=== PATIENT | male | born 1960 ===

== ENCOUNTER 2016-09-11 14:31 | Observation (INO) | payer MEDICARE, OTHER ==
[2016-09-11 14:35] VITALS: BMI 34.7
[2016-09-11] MEDS ORDERED: Sodium Chloride 0.9% 500 ML IV ONE ×2 (14:41→15:36)
--- NOTE | 2016-09-11 14:45 | ED PDOC ---
Arrival/HPI - General Chief Complaint: Shortness Of Breath Time Seen by Provider: 09/11/16 14:34 Historian: Patient - Critical Care Critical Care Minutes: 30 minutes - History of Present Illness Time/Duration: Other (2 weeks) Symptom Onset: Gradual Symptom Course: Unchanged Severity Level: Mild Activities at Onset: Rest Associated Symptoms (Text): 09/11/16 14:42 Patient complains of a 2 week history of chest pain and shortness of breath. He also has nausea vomiting and diarrhea. There is no abdominal pain. He was sent to the emergency department from the wound center today. He had a left short leg cast placed today in the wound center. No fever or chills. No injury or trauma. No genitourinary symptoms. Past Medical History - Infectious Disease Hx of Infectious Diseases: None - Tetanus Immunization Tetanus Immunization: Unknown - Cardiac Hx Hypertension: Yes - Pulmonary Hx Respiratory Disorders: No - Neurological Hx Neurological Disorder: Yes - HEENT Hx HEENT Disorder: Yes - Renal Hx Renal Disorder: No - Endocrine/Metabolic Hx Diabetes Mellitus Type 2: Yes - Hematological/Oncological Hx Blood Disorders: No - Integumentary Other/Comment: PVD - Musculoskeletal/Rheumatological Hx Falls: No - Gastrointestinal Hx Gastrointestinal Disorders: No - Genitourinary/Gynecological Hx Genitourinary Disorders: No - Psychiatric Hx Schizophrenia: Yes Hx Substance Use: No - Surgical History Other/Comment: left foot great toe amputation - Anesthesia Hx Anesthesia: No Hx Anesthesia Reactions: No - Suicidal Assessment Feels Threatened In Home Enviroment: No Family/Social History - Physician Review Nursing Documentation Reviewed: Yes Family/Social History: Unknown Family HX Smoking Status: Never Smoked Hx Alcohol Use: No Hx Substance Use: No Allergies/Home Meds Allergies/Adverse Reactions: Allergies No Known Allergies Allergy (Verified 05/15/16 14:26) Home Medications: Home Meds Medication Instructions Recorded Confirmed Amlodipine Besylate 10 mg PO DAILY 02/23/15 09/11/16 glyBURIDE [Micronase] 5 mg PO BID 02/23/15 09/11/16 Hydrochlorothiazide [Microzide] 25 mg PO DAILY 09/11/16 09/11/16 Lisinopril [Zestril] 80 mg PO DAILY 09/11/16 09/11/16 MetFORMIN [glucoPHAGE] 1,000 mg PO BID 04/25/17 04/25/17 Simvastatin [Zocor] 20 mg PO DAILY 09/11/16 09/11/16 Review of Systems - Physician Review All systems were reviewed & negative as marked: Yes - Review of Systems Constitutional: Fatigue. absent: Fevers Respiratory: SOB. absent: Cough, Sputum, Wheezing Cardiovascular: Chest Pain. absent: Palpitations, Syncope Gastrointestinal: Diarrhea, Nausea, Vomiting. absent: Abdominal Pain, Constipation Genitourinary Male: absent: Dysuria, Frequency, Hematuria Neurological: absent: Headache, Dizziness Physical Exam Vital Signs Temp Pulse Resp BP Pulse Ox 09/11/16 14:40 20 100 09/11/16 14:32 98.5 F 84 18 132/70 100 Temperature: Afebrile Blood Pressure: Normal Pulse: Regular Respiratory Rate: Normal Appearance: Positive for: Well-Appearing, Non-Toxic, Comfortable Pain Distress: None Mental Status: Positive for: Alert and Oriented X 3 - Systems Exam Head: Present: Atraumatic, Normocephalic Pupils: Present: PERRL Extroacular Muscles: Present: EOMI Conjunctiva: Present: Normal Mouth: Present: Moist Mucous Membranes Pharnyx: No: ERYTHEMA, EXUDATE, TONSILS ENLARGED Neck: Present: Normal Range of Motion Respiratory/Chest: Present: Clear to Auscultation, Good Air Exchange, Decreased Breath Sounds. No: Respiratory Distress, Accessory Muscle Use Cardiovascular: Present: Regular Rate and Rhythm, Normal S1, S2. No: Murmurs Abdomen: Present: Normal Bowel Sounds. No: Tenderness, Distention, Peritoneal Signs, Rebound, Guarding Back: Present: Normal Inspection. No: CVA Tenderness, Midline Tenderness, Paraspinal Tenderness Upper Extremity: Present: Normal Inspection. No: Cyanosis, Edema Lower Extremity: Present: Other (Left lower extremity short leg cast) Neurological: Present: GCS=15, CN II-XII Intact, Speech Normal, Motor Func Grossly Intact Skin: Present: Warm, Dry, Normal Color. No: Rashes Psychiatric: Present: Alert, Oriented x 3, Normal Insight, Normal Concentration Medical Decision Making ED Course and Treatment: 09/11/16 14:44 EKG shows normal sinus rhythm rate approximately 80 with a primary AV block and a right bundle branch block similar to EKG of 05/15/2016 - Lab Interpretations Lab Results: 09/11/16 14:40 09/11/16 14:40 Lab Results 09/11/16 15:00: pO2 30, VBG pH 7.12 L*, VBG pCO2 51.0, VBG HCO3 16.6 L, VBG Total CO2 18.2 L, VBG O2 Sat (Calc) 58.0, VBG Base Excess -12.8 L, VBG Potassium 6.0 H, Glucose 79, Lactate 1.0, FiO2 21.0, Sodium 135.0, Chloride 115.0 H, Venous Blood Potassium 6.0 H 09/11/16 14:40: Sodium 138, Potassium 5.9 H*, Chloride 109 H, Carbon Dioxide 16 L, Anion Gap 19, BUN 73 H, Creatinine 3.0 H, Est GFR ( Amer) 26, Est GFR (Non-Af Amer) 22, Random Glucose 79, Calcium 10.1, Total Bilirubin 1.1, AST 25, ALT 33, Alkaline Phosphatase 68, Lactate Dehydrogenase 340, Total Creatine Kinase 105, Troponin I 0.02 D, NT-Pro-B Natriuret Pep 78.1, Total Protein 8.8 H , Albumin 4.8, Globulin 3.9, Albumin/Globulin Ratio 1.2, Lipase 569 H 09/11/16 14:40: PT 10.3, INR 0.95, APTT 25.4, D-Dimer, Quantitative 0.25 09/11/16 14:40: WBC 8.7, RBC 4.35, Hgb 12.1 L, Hct 36.4 L, MCV 83.7, MCH 27.8, MCHC 33.2, RDW 16.0 H, Plt Count 169, MPV 11.6 H, Gran % 79.1 H, Lymph % (Auto) 13.7 L, Gibson % (Auto) 6.1 H, Eos % (Auto) 1.0 L, Baso % (Auto) 0.1, Gran # 6.87 H, Lymph # 1.2, Gibson # 0.5, Eos # 0.1, Baso # 0.01 - RAD Interpretation Radiology Orders: 09/11/16 14:41 CHEST PORTABLE [RAD] Stat Chest 1 view shows no infiltrate effusion or cardiomegaly Wheel Borer: ED Physician - Medication Orders Current Medication Orders: Sodium Chloride (Sodium Chloride 0.9%) 500 mls @ 500 mls/hr IV ONCE ONE Stop: 04/25/17 16:35 Discontinued Medications Dextrose (Dextrose 50% Inj) 50 ml IVP STAT STA Stop: 09/11/16 15:37 Sodium Chloride (Sodium Chloride 0.9%) 500 mls @ 500 mls/hr IV ONCE ONE Stop: 09/11/16 15:40 Last Admin: 09/11/16 15:05 Dose: 500 mls/hr Insulin Human Regular (Humulin R) 10 units IV ONCE STA Stop: 09/11/16 15:36 Ondansetron HCl (Zofran Inj) 4 mg IVP ONCE ONE Stop: 09/11/16 14:42 Last Admin: 09/11/16 15:05 Dose: 4 mg Pantoprazole Sodium (Protonix Inj) 40 mg IVP ONCE STA Stop: 09/11/16 14:42 Last Admin: 09/11/16 15:05 Dose: 40 mg Sodium Polystyrene Sulfonate (Kayexalate Oral Susp) 30 gm PO STAT STA Stop: 09/11/16 15:38 Disposition/Present on Arrival - Present on Arrival Any Indicators Present on Arrival: No History of DVT/PE: No History of Uncontrolled Diabetes: Yes Urinary Catheter: No History of Decub. Ulcer: No History Surgical Site Infection Following: None - Disposition Have Diagnosis and Disposition been Completed?: Yes Diagnosis: Hyperkalemia, Acute renal insufficiency, Chest pain, Dyspnea, Nausea vomiting and diarrhea Disposition: HOSPITALIZED Disposition Time: 15:40 Patient Plan: Admission, Telemetry Patient Problems: Current Active Problems Problem Status Onset Acute renal insufficiency Acute Chest pain Acute Dyspnea Acute Hyperkalemia Acute Nausea vomiting and diarrhea Acute Condition: SERIOUS Discharge Instructions (ExitCare): Chest Pain (ED) Referrals: Rocky Riley MD [Primary Care Provider] - Follow up with primary
[2016-09-11 14:53] LABS: ADD MANUAL DIFF? NO
[2016-09-11 14:55] LABS: BASO # 0.01 K/mm3 (0.0-2.0); BASO % 0.1 % (0.0-3.0); EOS # 0.1 (0.0-0.7); GRAN # 6.87 (1.4-6.5); GRAN % 79.1 % (50.0-68.0); HEMATOCRIT 36.4 % (42.0-52.0); LYMPH # 1.2 (1.2-3.4); LYMPH % 13.7 % (22.0-35.0); MEAN CELL VOLUME 83.7 fL (80.0-105.0); MEAN CORPUSCULAR HEMOGLOBIN 27.8 pg (25.0-35.0); MEAN CORPUSCULAR HGB CONC 33.2 g/dl (31.0-37.0); MEAN PLATELET VOLUME 11.6 fl (7.0-11.0); MONO # 0.5 (0.1-0.6); MONO % 6.1 % (1.0-6.0); PLATELET COUNT 169 10^3/uL (120.0-450.0); WHITE BLOOD COUNT 8.7 10^3/ul (4.5-11.0)
[2016-09-11 15:17] LABS: ALB/GLOB RATIO 1.2 (1.1-1.8); BILIRUBIN,TOTAL 1.1 mg/dL (0.2-1.3); CALCIUM 10.1 mg/dL (8.4-10.5); TOTAL PROTEIN 8.8 g/dL (5.8-8.3)
[2016-09-11 15:18] LABS: TROPONIN I 0.02 ng/mL
[2016-09-11 15:24] LABS: POTASSIUM 5.9 mmol/L (3.6-5.0)
[2016-09-11 15:30] LABS: VENOUS BLOOD GAS BASE EXCESS -12.8 mmol/L (0.0-2.0)
[2016-09-11 15:31] LABS: D DIMER 0.25 mg/L FEU (0-0.50); INR 0.95 (0.93-1.08); PARTIAL THROMBOPLASTIN TIME 25.4 Seconds (23.7-30.8)
[2016-09-11 15:33] LABS: VENOUS BLOOD PH 7.12 (7.32-7.43)
[2016-09-11] MEDS ORDERED: Insulin Regular 1 UNITS/0.01 ML ML IV STA (15:35)
[2016-09-11] MEDS ORDERED: Dextrose 50% SYRINGE Inj (50 ml) IVP STA (15:36)
[2016-09-11] MEDS ORDERED: Sod Polystyrene Sulf 15 gm/60 ml Oral Susp PO STA (15:37)
--- NOTE | 2016-09-11 15:39 | RAD ---
HISTORY: sob COMPARISON: 05/15/2016 FINDINGS: LUNGS: No active pulmonary disease. PLEURA: No significant pleural effusion identified, no pneumothorax apparent. CARDIOVASCULAR: Normal. OSSEOUS STRUCTURES: No significant abnormalities. VISUALIZED UPPER ABDOMEN: Normal. OTHER FINDINGS: None. IMPRESSION: No active disease.
[2016-09-12 06:51] VITALS: O2SAT 99
[2016-09-12] MEDS ORDERED: Insulin Reg-MEDIUM-Coverage SC SCH (07:30)
[2016-09-12 11:46] VITALS: BP 117/71; RESP 20; TEMP 97.9
--- NOTE | 2016-09-12 13:09 | CARD ---
APPROVED REPORT EKG Measurement Heart [id number] <Conclusion> Sinus rhythm with 1st degree AV block Right bundle branch bloc Abnormal ECG
[2016-09-12] MEDS ORDERED: Sod Polystyrene Sulf 15 gm/60 ml Oral Susp PO ONE (14:07)
--- NOTE | 2016-09-12 14:13 | CON ---
DATE: 09/12/2016 HISTORY OF PRESENT ILLNESS: The patient is a 56-year-old male who presented with 1 episode of chest discomfort. His symptoms are currently resolved. The patient is free of cardiac history. PAST MEDICAL HISTORY: Includes diabetes mellitus, hypertension and hypercholesterolemia, and is curr ently being treated for diabetic foot ulcer on his left lower extremity. The patient has had no previous myocardial infarction or intervention before. A stress test was done in the past which was negative. His renal status has been deteriorating over the past several years, likely due to his diabetes. SOCIAL HISTORY: Denies smoking. REVIEW OF SYSTEMS: A 14-point review of systems was reviewed. No cardiac symptomatology was elicite d. PHYSICAL EXAMINATION: VITAL SIGNS: Blood pressure 117/71, the heart rate is in the 70s. NECK: Negative JVD. LUNGS: Without rales. HEART: Revealed S1, S2. EXTREMITIES: Without edema. The left foot is bandaged with a recent dressing change. EKG shows normal sinus rhythm with a right bundle branch block. LABORATORIES: Reveal troponins that are negative x 2. BUN and creatinine are 19 and 3.0. The hemog lobin is 12.1. IMPRESSION: 1. Transient chest discomfort. 2. No evidence for acute coronary syndrome. 3. Diabetes mellitus. 4. Hypertension. 5. Hypercholesterolemia. 6. Diabetic foot ulcer. Given these findings, I have discussed this with the patient in detail. I have asked him to take a d aily aspirin. He is to continue his statin therapy as well as his amlodipine. The patient is scheduled for a stress test early next week. Rigoberto Krishnan MD cc: [id number] TT: 09/12/2016 14:12:30 Confirmation # [id number] Dictation # [id number] mn
--- NOTE | 2016-09-12 15:30 | CON ---
DATE: 09/12/2016 REFERRING PHYSICIAN: Dr. Rocky Riley REASON FOR CONSULT: May have a sleep apnea syndrome. HISTORY OF PRESENT ILLNESS: This is a 56-year-old gentleman with a past medical history significant for diabetes, hypertension, hyperlipidemia, diabetic foot, which is nonhealing. Has a hard cast on t he left lower extremity. Seen at [facility]. Was complaining about nonspecific chest pain. Came to Emergency Room and admitted for further workup. In the past, he was requested to have a slee p study done, apparently did not comply and had had no followup. Admits to have snoring, daytime sle epy and tired. No chest pain at present time. No nausea, no vomiting. Has a hard cast on the left lower extremity. PAST MEDICAL HISTORY: May have a sleep apnea syndrome, diabetes, hypertension, hyperlipidemia, nonhe aling diabetic foot. SOCIAL HISTORY: Lives with mother. No history of smoking or alcohol use. FAMILY HISTORY: No significant cardiopulmonary disease reported. MEDICATIONS: He is on insulin coverage, hydrochlorothiazide 25 mg daily, Lipitor 10 mg daily, ____ 5 mg twice a day, Norvasc 10 mg daily. ALLERGIES: None known. REVIEW OF SYSTEMS: No headache, no rhinitis. Admits to have snoring, daytime sleepy and tired, epig astric discomfort. No chest pain at present. No dysuria. Has a left leg hard cast. PHYSICAL EXAMINATION: GENERAL: Lying in the bed in no acute distress. VITAL SIGNS: Temp is 98, heart rate 72, respiratory rate is 20, blood pressure 170/71, pulse ox 99% on room air. HEENT: Moist mucous membranes. Crowded airway. Mallampati score is 4. NECK: Supple. No JVD. LUNGS: Has a fair airflow with few rhonchi. HEART: S1, S2. ABDOMEN: Soft, nontender. No organomegaly. EXTREMITIES: There is no edema of the right leg. Left leg has a hard cast. NEUROLOGIC: Awake, alert, follows simple command. LABORATORY DATA: Shows hemoglobin 12.1, hematocrit 36.4, WBC 8.7, platelet is 169. INR 0.95. D-dim er is 0.25. He has a VBG done, which shows pCO2 was 51, pH of 7.1 and pO2 is 30. Chest x-ray done i n ER shows no active pulmonary disease. IMPRESSION AND PLAN: Nonhealing left foot ulcer, diabetes, I believe schizophrenic, has a CO2 retent ion, may have a sleep apnea syndrome. In the past, has been noncompliant with the followup. Will ge t ABG to assess pCO2 and pH. Keep head elevated at 45 degrees. Sleep apnea precaution. Will get ve nous Doppler to assure there is no deep venous thrombosis. I understand D-dimer is negative. Had a CAT scan of the ____ done in 2014, which shows unremarkable for any parenchymal lung disease, so I wi ll suggest outpatient PFT and attended sleep study. Gastric prophylaxis, deep venous thrombosis prop hylaxis. Thank you and we will follow with you. Camille Salazar MD cc: [id number] TT: 09/12/2016 15:29:36 Confirmation # [id number] Dictation # [id number]
[2016-09-12 16:25] VITALS: PULSE 75
--- NOTE | 2016-09-12 23:30 | HP ---
ADDENDUM Please see the previous H and P for initial HPI. ALLERGIES: No known drug allergies. HOME MEDICATIONS: Amlodipine, glyburide, hydrochlorothiazide, lisinopril, metformin, simvastatin. PAST MEDICAL HISTORY: Diabetes type 2, dyslipidemia, foot ulcer, schizophrenia, peripheral neuropath y. SOCIAL HISTORY: He does not smoke. He lives with his family, who is involved in his care. He denie s drug use. PAST SURGICAL HISTORY: Left greater toe amputation. PHYSICAL EXAMINATION: VITAL SIGNS: He has a temperature of 97.9, pulse is 72, blood pressure 117/71, respirations 20. Hei ght is 5 feet 7 inches, weight is 216 pounds, BMI is 33. GENERAL: Patient lying in bed, flat, and in no apparent distress. HEAD AND NECK EXAM: Atraumatic, normocephalic. Conjunctivae are pink. Throat clear and mouth with moist mucosa. Oropharynx benign. EYES: Extraocular movements are intact. PERRLA. NECK: Supple. No JVD, thyromegaly, or adenopathy. No bruits. HEART: S1 and S2 regular rate and rhythm. No murmurs, rubs, or gallops. LUNGS: Clear to auscultation bilaterally. No wheezing rales or rhonchi appreciated. No retraction s on exam. ABDOMEN: Soft, nontender, nondistended. Bowel sounds are positive in all quadrants. No rebound. No hepatosplenomegaly. EXTREMITIES: No cyanosis, clubbing, or edema. NEURO: No facial asymmetry, tongue is midline, no uvula deviation. Power is 5/5 in upper extremity and 5/5 in lower extremity. Sensation is normal in upper extremity and lower extremity. PSYCH: Awake, alert, oriented x3. No anxiety or depression symptoms. Good insight. Normal affec t. : No CVA tenderness VASCULAR: 2+ pulses in carotid and pedal pulses. SKIN: No erythema or abnormal nodules noted. SPINE: Normal curvature. LYMPHADENOPATHY: No anterior cervical or posterior cervical adenopathy. No inguinal adenopathy. LABORATORY DATA: Have been reviewed. Hemoglobin is 8.7. He has a potassium of 5.9. He has a chest x-ray that shows no active disease. His EKG shows sinus rhythm with a first degree AV block, pulse of 82. ASSESSMENT: 1. Hyperkalemia. 2. Atypical chest pain. 3. Diabetes type 2. 4. Dyslipidemia. 5. Peripheral neuropathy. PLAN: The patient was given Kayexalate twice. He was seen by Dr. Krishnan. The patient is going to [facility] outpatient evaluation with a stress test. He is going to continue his cholesterol medication with Zocor. He is going to continue his glyburide and metformin. He is going to follow up as an outpatie nt in 1-2 weeks. He is also going to follow with Dr. Salazar. Rocky Riley MD cc: [id number] TT: 09/12/2016 23:30:17 sarah
[2016-09-13] MEDS ORDERED: Pantoprazole 40 mg EC Tab PO SCH (06:30)
--- NOTE | 2016-09-13 07:43 | HP ---
CHIEF COMPLAINT AND HISTORY OF PRESENT ILLNESS: This is a 56-year-old male who is coming into the [facility] complaining of shortness of breath. The patient was seeing Dr. Salazar and was complaining of shortness of breath, so he was advised to come into the ER for further evaluation. He says he gets s hortness of breath at times. It does not always happen while he is ambulating because he is not ambul ating well because of his foot. He does have a history of longstanding diabetes type 2 with foot ulc er, dyslipidemia, neuropathy. He has no complaints of any chest pain, no fevers or chills, no nausea , no vomiting. He otherwise feels well. He says he has been following with Dr. Salazar for his foot ulcer. Rocky Riley MD cc: [id number] TT: 09/12/2016 22:46:31 09/13/2016 06:42:21
[2016-09-13] MEDS ORDERED: Enoxaparin 40 mg Syringe SC SCH (10:00)
--- NOTE | 2016-12-11 08:29 | DS ---
Please see the note that was dictated on 09/12/2016 for the patient's discharge summary. The patient is discharged. Rocky Riley MD
== END 2016-09-12 17:00 | disposition home or self-care (01) ==
LOC: ED 14:31 → ERH 15:37 → INTOOBSV 15:37 → ERH 20:32 → 2RNO 22:30
PROVIDERS: ADMIT Internal Medicine Nephrology; ATTEND Internal Medicine Nephrology
DX: E87.5 Hyperkalemia (principal); R07.89 Other chest pain; E78.5 Hyperlipidemia, unspecified; E11.42 Type 2 diabetes mellitus with diabetic polyneuropathy; I10 Essential (primary) hypertension; E11.621 Type 2 diabetes mellitus with foot ulcer; L97.529 Non-pressure chronic ulcer of other part of left foot with unspecified severity; E78.00 Pure hypercholesterolemia, unspecified; F20.9 Schizophrenia, unspecified; R06.83 Snoring; R06.02 Shortness of breath; Z91.19 Patient's noncompliance with other medical treatment and regimen; Z89.412 Acquired absence of left great toe
CPT/HCPCS: 36415; 71010; 80053; 82550; 82803; 82948; 83615; 83690; 83880; 84484; 85025; 85378; 85610; 85730; 93005; 96361; 96374; 96375; 99285; C9113; G0378; J2405; J7040

== ENCOUNTER 2016-11-06 13:30 | Inpatient (IN) | payer MEDICARE, OTHER ==
[2016-11-06 13:55] VITALS: BMI 33.8
[2016-11-06] MEDS ORDERED: Sodium Chloride 0.9% 1,000 ML IV STA (14:14)
--- NOTE | 2016-11-06 14:23 | ED PDOC ---
Arrival/HPI - General Historian: Patient - History of Present Illness Time/Duration: Other (2 days ) Symptom Onset: Gradual Symptom Course: Worsening Context: Other (n/a) <Irena Chicas - Last Filed: 11/06/16 17:54> <SolShira - Last Filed: 11/06/16 19:34> - General Chief Complaint: GI Problem Time Seen by Provider: 11/06/16 13:48 - History of Present Illness Narrative History of Present Illness (Text): 11/06/16 14:16 Patient is a 56 y/o with pmh of htn, IDDM2, CKD, PAD s/p amputated right big toe sent from [facility] secondary to "not feeling well". Patient states for 2 days he vomited multiple times, and had loose stool. Patient states he didn't vomit today, and he didn't have bowel movement today. Patient states he also had no appetite for few days, and has not eating today. Patient reports he has been feeling dizzy both when he gets up and lying down. Patient denies feeling like the room is spinning, denies tinnitus or photophobia. Patient is also complaining of mid thoracic back pain. Patient was not able to describe the back pain or say how long he has the back pain for. Patient denies fever, chills, cp or sob. Patient states he can walk many blocks without getting sob. (Irena Chicas) Past Medical History - Provider Review Nursing Documentation Reviewed: Yes - Travel History Have you recently traveled outside [place] w/in the past 3 mons?: No - Infectious Disease Hx of Infectious Diseases: None - Tetanus Immunization Tetanus Immunization: Unknown - Cardiac Hx Hypertension: Yes Hx Peripheral Vascular Disease: Yes - Pulmonary Hx Respiratory Disorders: No - Neurological Hx Neurological Disorder: Yes - HEENT Hx HEENT Disorder: Yes Other/Comment: wears glasses - Renal Hx Renal Disorder: No - Endocrine/Metabolic Hx Diabetes Mellitus Type 2: Yes - Hematological/Oncological Hx Blood Disorders: No - Integumentary Other/Comment: PVD - Musculoskeletal/Rheumatological Hx Falls: Yes Hx Osteomyelitis: Yes (left foot) - Gastrointestinal Hx Gastrointestinal Disorders: No - Genitourinary/Gynecological Hx Genitourinary Disorders: No - Psychiatric Hx Schizophrenia: Yes Hx Substance Use: No - Surgical History Hx Orthopedic Surgery: Yes Other/Comment: left foot great toe amputation - Anesthesia Hx Anesthesia: No Hx Anesthesia Reactions: No - Suicidal Assessment Feels Threatened In Home Enviroment: No <Irena Chicas - Last Filed: 11/06/16 17:54> Family/Social History - Physician Review Nursing Documentation Reviewed: Yes Family/Social History: Diabetes, Hypertension, CAD/PA Smoking Status: Never Smoked Hx Alcohol Use: No Hx Substance Use: No <Irena Chicas - Last Filed: 11/06/16 17:54> Allergies/Home Meds <Irnea Chicas - Last Filed: 11/06/16 17:54> <Shira Horton - Last Filed: 11/06/16 19:34> Allergies/Adverse Reactions: Allergies No Known Allergies Allergy (Verified 05/15/16 14:26) Home Medications: Home Meds Medication Instructions Recorded Confirmed Amlodipine Besylate 10 mg PO DAILY 02/23/15 09/17/16 glyBURIDE [Micronase] 5 mg PO BID 02/23/15 09/17/16 Hydrochlorothiazide [Microzide] 25 mg PO DAILY 09/11/16 09/17/16 Lisinopril [Zestril] 40 mg PO DAILY 09/11/16 09/17/16 MetFORMIN [glucoPHAGE] 1,000 mg PO BID 09/11/16 09/17/16 Simvastatin [Zocor] 20 mg PO DAILY 09/11/16 09/17/16 Fenofibrate [Tricor] 1 tab PO DAILY 09/17/16 09/17/16 Review of Systems - Physician Review All systems were reviewed & negative as marked: Yes - Review of Systems Constitutional: Normal Eyes: Normal ENT: Normal Respiratory: Normal Cardiovascular: Normal Gastrointestinal: Diarrhea, Nausea, Vomiting, Appetite Changes. absent: Abdominal Pain, Constipation Genitourinary Male: Normal Musculoskeletal: Back Pain (thoracic), Other (ampuated left toe with clean dressing. ) Skin: Rash Neurological: Normal Endocrine: Normal Hemo/Lymphatic: Normal Psychiatric: Normal <Irena Chicas - Last Filed: 11/06/16 17:54> Physical Exam Vital Signs Reviewed: Yes Temperature: Afebrile Blood Pressure: Normal Pulse: Tachycardic Respiratory Rate: Normal Appearance: Positive for: Well-Appearing, Non-Toxic, Comfortable Pain Distress: Mild Mental Status: Positive for: Alert and Oriented X 3 - Systems Exam Head: Present: Atraumatic, Normocephalic Conjunctiva: No: Icteric Mouth: Present: Dry Neck: Present: Normal Range of Motion. No: Meningeal Signs, JVD, Lymphadenopathy Respiratory/Chest: Present: Clear to Auscultation, Good Air Exchange. No: Respiratory Distress, Accessory Muscle Use, Wheezes, Rales, Retracting, Rhonchi , Tachypneic Cardiovascular: Present: Regular Rate and Rhythm, Normal S1, S2. No: Murmurs, Irregular Rhythm, Tachycardic, Bradycardic, Rub, Gallop Abdomen: Present: Normal Bowel Sounds, Scars. No: Tenderness, Distention ( obese abdomen. ), Rebound, Guarding Upper Extremity: Present: Normal Inspection. No: Cyanosis, Edema Lower Extremity: Present: Normal Inspection. No: Edema Neurological: Present: GCS=15 Skin: Present: Warm, Dry, Rashes, Other (left foot wrapped in a clean dressing. ) Psychiatric: Present: Alert, Oriented x 3 <Irena Chicas - Last Filed: 11/06/16 17:54> Medical Decision Making Re-evaluation Time: 17:35 Reassessment Condition: Improving,but remains with symptoms - RAD Interpretation Senior Unix Administrator: ED Physician (Freight Broker Agent. ) - EKG Interpretation Interpreted by ED Physician: Yes Type: 12 lead EKG <Irena Chicas - Last Filed: 11/06/16 17:54> <Shira Horton - Last Filed: 11/06/16 19:34> ED Course and Treatment: 11/06/16 14:28 Patient is a 56 y/o with pmh of htn, CKD, IDDM2, PAD s/p amputated right big toe sent from [facility] secondary n/v/d, dizziness and back pain for 2 days. Differentials: gastroenteritis, PA, CAD, DKA, HHS, sepsis. Plan: CBC, CMP, LIPASE, UA Chest x-ray and ekg Ct head pepcid, zofran and 1/2 L ns bolus Discussed with Dr horton. 11/06/16 17:36 H/H of 8.8/27.1, from hgb of 12.1 on August 2016. Stool occult test negative. BUN/creat of 40/2.2, creat improved compared to August 2016, creat was 3. Mild hyperkalemia of 5.3 likely from the CKD. No ekg changes. Gluc of 47 on chemistry, gave orange juice and sugar. Will order diet for patient. Contacted Dr Riley the PMD, waiting for response. 11/06/16 17:52 Dr Riley called back, patient to be admitted under his service. (Irena Chicas) Patient seen and examined with resident. Came up with treatment and disposition plan with resident. The patient is a 56 year old male who comes into the emergency department for evaluation of " not feeling well." Patient complains of nausea, vomiting and diarrhea. Additional HPI details as noted by the resident. On physical examination the the patient has a clean and dry dressing the the left foot. EKG , Head CT, Lab work and Urinalysis ordered to rule out ACS vs. gastroenteritis vs. DKA. Patient given pepcid, zofran and IV fluids for symptomatic control. 11/06/16 19:32 Patient with dizziness, tachycardia, and hypoglycemia. Labs showing significant drop in H/H despite stable chronic renal insufficiency. Will need further inpatient workup. Resident discussed case with Dr. Riley. (Shira Horton) - Lab Interpretations Lab Results: 11/06/16 15:55 11/06/16 15:55 Lab Results 11/06/16 17:28: Blood Type Confirm A POSITIVE 11/06/16 17:28: Urine Color Yellow, Urine Appearance Clear, Urine pH 6.0, Ur Specific [place] 1.020, Urine Protein Trace H, Urine Glucose (UA) Negative, Urine Ketones Negative, Urine Blood Trace-lysed H, Urine Nitrate Negative, Urine Bilirubin Negative, Urine Urobilinogen 0.2, Ur Leukocyte Esterase Negative , Urine RBC 0 - 2, Urine WBC 0 - 2, Ur Epithelial Cells 0 - 2, Fine Granular Casts 0 - 2 11/06/16 17:00: Blood Type A POSITIVE, Antibody Screen Negative, Crossmatch See Detail, BBK History Checked No verified bt 11/06/16 15:55: Sodium 138, Potassium 5.3 H, Chloride 113 H, Carbon Dioxide 15 L , Anion Gap 15, BUN 40 H, Creatinine 2.2 H, Est GFR ( Amer) 38, Est GFR ( Non-Af Amer) 31, Random Glucose 47 L* D, Calcium 9.8, Total Bilirubin 0.5, AST 32, ALT 30, Alkaline Phosphatase 94, Lactate Dehydrogenase 308 L, Total Creatine Kinase 74, Troponin I < 0.01, Total Protein 7.7, Albumin 3.9, Globulin 3.8, Albumin/Globulin Ratio 1.0 L, Amylase 73, Lipase 108 11/06/16 15:55: PT 11.0, INR 1.02, APTT 28.0 11/06/16 15:55: WBC 9.2, RBC 3.16 L, Hgb 8.8 L, Hct 27.1 L, MCV 85.8, MCH 27.8, MCHC 32.5, RDW 15.5 H, Plt Count 236, MPV 10.8, Gran % 76.7 H, Lymph % (Auto) 11.4 L, Winn % (Auto) 9.0 H, Eos % (Auto) 2.8, Baso % (Auto) 0.1, Gran # 7.02 H , Lymph # 1.0 L, Winn # 0.8 H, Eos # 0.3, Baso # 0.01 - RAD Interpretation Narrative RAD Interpretations (Text): 11/06/16 17:57 Normal chest x-ray, no consolidation or infiltration. (Irena Chicas) Radiology Orders: 11/06/16 14:09 Brain [HEAD W/O CONTRAST] [CT] Stat 11/06/16 16:47 CHEST PORTABLE [RAD] Stat - EKG Interpretation EKG Interpretation (Text): 11/06/16 17:54 NSR with HR of 89 bmp, with RBBB and 1st degree AV block. (Irena Chicas) - Medication Orders Current Medication Orders: Discontinued Medications Famotidine (Pepcid) 20 mg IVP STAT STA Stop: 11/06/16 14:14 Last Admin: 11/06/16 15:59 Dose: 20 mg Sodium Chloride (Sodium Chloride 0.9%) 1,000 mls @ 500 mls/hr IV .Q2H STA Stop: 11/06/16 16:13 Last Admin: 11/06/16 16:00 Dose: 500 mls/hr Ondansetron HCl (Zofran Inj) 4 mg IVP STAT STA Stop: 11/06/16 14:14 Last Admin: 11/06/16 15:59 Dose: 4 mg <Irena Chicas - Last Filed: 11/06/16 17:54> - PA / OUTBOUND SALES CONSULTANT / Resident Statement / has reviewed & agrees with the documentation as recorded. MD/DO has examined the patient and agrees with the treatment plan. - Scribe Statement The provider has reviewed the documentation as recorded by the Scribe <Shira Horton - Last Filed: 11/06/16 19:34> - Scribe Statement Tahir Cartagena Provider Scribe Attestation: All medical record entries made by the Scribe were at my direction and personally dictated by me. I have reviewed the chart and agree that the record accurately reflects my personal performance of the history, physical exam, medical decision making, and the department course for this patient. I have also personally directed, reviewed, and agree with the discharge instructions and disposition. (Shira Horton) Disposition/Present on Arrival - Present on Arrival Any Indicators Present on Arrival: Yes History of DVT/PE: No History of Uncontrolled Diabetes: Yes Urinary Catheter: No History of Decub. Ulcer: No History Surgical Site Infection Following: None - Disposition Have Diagnosis and Disposition been Completed?: Yes Disposition Time: 17:58 Patient Plan: Admission <Irena Chicas - Last Filed: 11/06/16 17:54> <Shira Horton - Last Filed: 11/06/16 19:34> - Disposition Diagnosis: SIRS (systemic inflammatory response syndrome), Anemia, Hyperkalemia Disposition: HOSPITALIZED Patient Problems: Current Active Problems Problem Status Onset Anemia Acute Hyperkalemia Acute SIRS (systemic inflammatory response syndrome) Acute Condition: STABLE
--- NOTE | 2016-11-06 15:35 | CT ---
PROCEDURE: CT HEAD WITHOUT CONTRAST. HISTORY: dizzy COMPARISON: No prior study available for comparison TECHNIQUE: Axial computed tomography images were obtained through the head/brain without intravenous contrast. Radiation dose: Total exam DLP = 725.84 mGy-cm. This CT exam was performed using one or more of the following dose reduction techniques: Automated exposure control, adjustment of the mA and/or kV according to patient size, and/or use of iterative reconstruction technique. FINDINGS: HEMORRHAGE: No acute parenchymal, subarachnoid or extra-axial hemorrhage. Hemorrhage. BRAIN: There appears to be some very minor chronic periventricular white matter ischemic changes. Moderate volume loss. No obvious parenchymal nor extra-axial mass or collection seen on this noncontrast study. VENTRICLES: No obstructive hydrocephalus CALVARIUM: There are no acute calvarial fractures. PARANASAL SINUSES: The frontal and sphenoid sinuses are underpneumatized/ hypoplastic. Remaining visualized paranasal sinuses are relatively well-developed and well-aerated. No evidence of acute sinusitis. MASTOID AIR CELLS: Unremarkable as visualized. No inflammatory changes. OTHER FINDINGS: None. IMPRESSION: No acute intracranial hemorrhage. Suspect minor old chronic periventricular white matter ischemic changes are felt to be present. Moderate generalized volume loss.
[2016-11-06 16:09] LABS: ADD MANUAL DIFF? NO
[2016-11-06 16:37] LABS: ALKALINE PHOSPHATASE 94 U/L (38-133); ALT/SGPT 30 U/L (7-56); AMYLASE 73 U/L (35-125); AST/SGOT 32 U/L (15-59); BILIRUBIN,TOTAL 0.5 mg/dL (0.2-1.3); BLOOD UREA NITROGEN 40 mg/dL (7-21); CALCIUM 9.8 mg/dL (8.4-10.5); CARBON DIOXIDE 15 mmol/L (21-33); CHLORIDE 113 mmol/L (98-107); GFR AFRICAN-AMERICAN 38; LIPASE 108 U/L (23-300); POTASSIUM 5.3 mmol/L (3.6-5.0); SODIUM 138 mmol/L (132-148); TOTAL PROTEIN 7.7 g/dL (5.8-8.3)
[2016-11-06 16:39] LABS: BASO # 0.01 K/mm3 (0.0-2.0); BASO % 0.1 % (0.0-3.0); EOS # 0.3 (0.0-0.7); EOS % 2.8 % (1.5-5.0); GRAN # 7.02 (1.4-6.5); GRAN % 76.7 % (50.0-68.0); HEMATOCRIT 27.1 % (42.0-52.0); LYMPH % 11.4 % (22.0-35.0); MEAN CELL VOLUME 85.8 fL (80.0-105.0); MEAN CORPUSCULAR HEMOGLOBIN 27.8 pg (25.0-35.0); MEAN CORPUSCULAR HGB CONC 32.5 g/dl (31.0-37.0); MEAN PLATELET VOLUME 10.8 fl (7.0-11.0); MONO # 0.8 (0.1-0.6); PLATELET COUNT 236 10^3/uL (120.0-450.0); RED CELL DISTRIBUTION WIDTH 15.5 % (11.5-14.5); WHITE BLOOD COUNT 9.2 10^3/ul (4.5-11.0)
[2016-11-06 16:41] LABS: INR 1.02 (0.93-1.08)
[2016-11-06 16:47] LABS: GLUCOSE,RANDOM 47 mg/dL (70-110)
[2016-11-06 16:57] LABS: TROPONIN I < 0.01 ng/mL
--- NOTE | 2016-11-06 17:07 | CARD ---
APPROVED REPORT EKG Measurement Heart [id number] <Conclusion> Sinus rhythm with 1st degree AV block Right bundle branch block Abnormal ECG
[2016-11-06 17:47] LABS: URINE BILIRUBIN NEGATIVE (NEGATIVE); URINE BLOOD TRACE-LYSED (NEGATIVE); URINE GLUCOSE (UA) NEGATIVE (NEGATIVE); URINE KETONE NEGATIVE (NEGATIVE); URINE LEUKOCYTE ESTERASE NEGATIVE Leu/uL (NEGATIVE); URINE PROTEIN TRACE mg/dL (<30 mg/dL); URINE UROBILINOGEN 0.2 E.U./dL (<1 E.U./dL)
[2016-11-06 17:50] LABS: URINE APPEARANCE CLEAR (CLEAR); URINE COLOR YELLOW (YELLOW)
[2016-11-06 18:10] LABS: URINE EPITHELIAL CELLS 0 - 2 /hpf (0-5); URINE RBC 0 - 2 /hpf (0-2); URINE WBC 0 - 2 /hpf (0-6)
[2016-11-06 22:09] LABS: URINE BILIRUBIN NEGATIVE (NEGATIVE); URINE BLOOD NEGATIVE (NEGATIVE); URINE GLUCOSE (UA) NEGATIVE (NEGATIVE); URINE KETONE NEGATIVE (NEGATIVE); URINE LEUKOCYTE ESTERASE NEGATIVE Leu/uL (NEGATIVE); URINE PROTEIN TRACE mg/dL (<30 mg/dL); URINE UROBILINOGEN 0.2 E.U./dL (<1 E.U./dL)
[2016-11-06 22:10] LABS: URINE COLOR YELLOW (YELLOW)
[2016-11-06 22:11] LABS: URINE APPEARANCE CLEAR (CLEAR)
[2016-11-06 22:22] LABS: URINE RBC 0 - 2 /hpf (0-2); URINE WBC 0 - 2 /hpf (0-6)
[2016-11-06 22:23] LABS: URINE EPITHELIAL CELLS 0 - 2 /hpf (0-5)
--- NOTE | 2016-11-07 09:04 | RAD ---
HISTORY: Dizziness and generalized weakness COMPARISON: 09/11/2016. FINDINGS: LUNGS: The lungs are well inflated and clear. PLEURA: No significant pleural effusion identified, no pneumothorax apparent. CARDIOVASCULAR: Normal. OSSEOUS STRUCTURES: No significant abnormalities. VISUALIZED UPPER ABDOMEN: Normal. OTHER FINDINGS: None. IMPRESSION: No active pulmonary disease.
[2016-11-07] MEDS: Insulin Reg-LOW-Coverage SC SCH ×4 (09:38→22:27)
[2016-11-07] MEDS ORDERED: Non Formulary Medication (Amlodipine Besylate [Amlodipine Besylate] 10 MG) PO SCH (10:00)
--- NOTE | 2016-11-07 10:00 | HP ---
CHIEF COMPLAINT AND HISTORY OF PRESENT ILLNESS: This is a 56-year-old male who is coming into the [facility] because of left foot ulcer. The patient was sent by Dr. Salazar, his radio repair teacher, for his diabe tic foot. He was seen by him in the office. The patient has a past medical history of diabetes type 2, peripheral arterial disease. He also states he has not been feeling well for the past 2 days. H e has been having episodes of vomiting. He has been having loose bowel movements. The patient says he did not have any vomiting the day he was admitted, yesterday. He has no fevers or chills, no naus ea, no abdominal pain, no dysuria or frequency. He does have back pain at times. REVIEW OF SYSTEMS: All other review of symptoms is within normal limits except as mentioned. ALLERGIES: No known drug allergies. HOME MEDICATIONS: Amlodipine, glyburide, hydrochlorothiazide, lisinopril, Zocor, metformin, Tricor. PAST MEDICAL HISTORY: 1. Diabetes type 2. 2. Dyslipidemia. 3. Left foot ulcer. 4. Schizophrenia. 5. Peripheral neuropathy. SOCIAL HISTORY: He does not smoke. He lives with his family. He denies drug use. PAST SURGICAL HISTORY: Left great toe amputation. PHYSICAL EXAMINATION: VITAL SIGNS: He has a temperature of 98.5, pulse of 83, blood pressure is 124/69, respirations 19, O 2 saturation 97%. Height is 5 feet 7, weight is 212 pounds, BMI is 33.3. GENERAL: The patient is lying in bed, flat, and in no apparent distress. HEAD AND NECK EXAM: Atraumatic, normocephalic. Conjunctivae are pink. Throat clear and mouth with moist mucosa. Oropharynx benign. EYES: Extraocular movements are intact. PERRLA. NECK: Supple. No JVD, thyromegaly, or adenopathy. No bruits. HEART: S1 and S2 regular rate and rhythm. No murmurs, rubs, or gallops. LUNGS: Clear to auscultation bilaterally. No wheezing rales or rhonchi appreciated. No retractions on exam. ABDOMEN: Soft, nontender, nondistended. Bowel sounds are positive in all quadrants. No rebound. No hepatosplenomegaly. EXTREMITIES: The left foot is wrapped. I do not see a wound. No cyanosis, clubbing, or edema. NEUROLOGIC: No facial asymmetry, tongue is midline, no uvula deviation. Power is 5/5 in upper extre mity and 5/5 in lower extremity. Sensation is normal in upper extremity and lower extremity. PSYCHIATRIC: Awake, alert, oriented x 3. No anxiety or depression symptoms. Good insight. Normal affect. GENITOURINARY: No CVA tenderness VASCULAR: 2+ pulses in carotid and pedal pulses. SKIN: No erythema or abnormal nodules noted. SPINE: Normal curvature. LYMPHADENOPATHY: No anterior cervical or posterior cervical adenopathy. No inguinal adenopathy. LABORATORY DATA: White count of 9.2, hemoglobin 8.8, platelet count is 236. His INR is 1.02. Chemi stry shows a glucose of 47. He has a sodium 138, potassium is 5.3, bicarb of 15, creatinine is 2.2. He has a CK of 74, troponin 0.01. Amylase and lipase is 73 and 108. Urine shows nitrites are negat fab, bilirubin is negative, esterase is negative. His EKG done shows sinus rhythm with a first degree AV block, right bundle branch block. CT of the head done shows no acute intracranial hemorrhage. ASSESSMENT: 1. Left diabetic foot ulcer. 2. Hypoglycemia. 3. Chronic kidney disease, stage III. 4. Anemia. 5. Diabetes type 2. 6. Dyslipidemia. 7. Diabetic neuropathy. PLAN: The patient is admitted to the hospital. He has a diabetic foot. I will get Dr. Leeroy Salazar to evaluate the patient. The patient is on Lipitor for dyslipidemia. He is going to c ontinue. He is on hydrochlorothiazide for his blood pressure as well as amlodipine. The patient is on Tricor. He is on lisinopril for his CKD. He is on Zofran as needed. He was initially placed on telemetry. I will discontinue telemetry. The patient has been placed on insulin sliding scale. I w ill hold off on his metformin because of his CKD. The patient is going to have iron studies done. W e will continue to follow closely. Rocky Riley MD cc: [id number] TT: 11/07/2016 10:00:04 tn
--- NOTE | 2016-11-07 10:38 | CP.PCM.CON ---
History of Present Illness - History of Present Illness History of Present Illness: 56 year old male with PMH of left foot ulcer with history of abscess with MSSA, HTN, DM, History of left foot osteomyelitis, History of group B strep bacteremia , Dyslipidemia, Learning disability came in to [facility] because he was apparently not feeling well for the past day, had episodes of nausea with some vomiting and no appetite. He also felt lightheaded at times. In the ED , he was found to be hypoglycemic and has been treated for this. The patient is now feeling better, denies fever or chills, no headache or dizziness, no chest pain, no SOB, no cough, no sore throat, no diarrhea, no abdominal pain, no dysuria. The patient has had an amputation of his left hallux years ago and has been seeing Dr. Salazar for wound care. He denies discharge from the wound, no pain currently. Infectious Diseases consult is requested to further evaluate and manage. Review of Systems - Review of Systems All systems: reviewed and no additional remarkable complaints except (as per HPI ) Past Patient History - Infectious Disease Hx of Infectious Diseases: None - Tetanus Immunizations Tetanus Immunization: Unknown - Past Social History Smoking Status: Never Smoked - CARDIAC Hx Hypertension: Yes Hx Peripheral Vascular Disease: Yes - PULMONARY Hx Respiratory Disorders: No - NEUROLOGICAL Hx Neurological Disorder: Yes - HEENT Hx HEENT Problems: Yes Other/Comment: wears glasses - RENAL Hx Chronic Kidney Disease: No - ENDOCRINE/METABOLIC Hx Diabetes Mellitus Type 2: Yes - HEMATOLOGICAL/ONCOLOGICAL Hx Blood Disorders: No - INTEGUMENTARY Other/Comment: PVD - MUSCULOSKELETAL/RHEUMATOLOGICAL Hx Falls: Yes Hx Osteomyelitis: Yes (left foot) - GASTROINTESTINAL Hx Gastrointestinal Disorders: No - GENITOURINARY/GYNECOLOGICAL Hx Genitourinary Disorders: No - PSYCHIATRIC Hx Schizophrenia: Yes Hx Substance Use: No - SURGICAL HISTORY Hx Orthopedic Surgery: Yes Other/Comment: left foot great toe amputation - ANESTHESIA Hx Anesthesia: No Hx Anesthesia Reactions: No Meds Allergies/Adverse Reactions: Allergies Allergy/AdvReac Type Severity Reaction Status Date / Time No Known Allergies Allergy Verified 05/15/16 14:26 Physical Exam - Constitutional Appears: Non-toxic, No Acute Distress - Head Exam Head Exam: NORMAL INSPECTION - ENT Exam ENT Exam: Mucous Membranes Moist - Neck Exam Neck exam: Negative for: Lymphadenopathy, Meningismus - Respiratory Exam Respiratory Exam: Decreased Breath Sounds - Cardiovascular Exam Cardiovascular Exam: +S1, +S2 - GI/Abdominal Exam GI & Abdominal Exam: Soft. absent: Tenderness - Extremities Exam Additional comments: left foot with dry dressings in place; unable to see wound because of the wrapping Results - Vital Signs Recent Vital Signs: Last Vital Signs Temp 98 F 11/06/16 13:31 Pulse 79 11/06/16 18:22 Resp 18 11/06/16 18:22 BP 118/69 11/06/16 18:22 Pulse Ox 97 11/06/16 18:22 - Labs Result Diagrams: 11/06/16 15:55 11/06/16 15:55 Assessment & Plan - Assessment and Plan (Free Text) Plan: Assessment S/P hypoglycemic episode history of left foot proximal 1st metatarsal amputation with history of abscess with surrounding cellulitis, with MSSA history of diabetic foot ulceration with surrounding infection; osteomyelitis with fluid collection noted on MRI, growing MSSA and Proteus S/P left foot proximal 1st metatarsal amputation history of left foot ulcer with abscess with surrounding cellulitis, with MSSA HTN DM History of left foot osteomyelitis History of group B strep bacteremia Dyslipidemia Learning disability Plan Currently, no leukocytosis, no fevers; unable to see wound because of wrapping - will discuss with Podiatry regarding the left foot wound / hallux stump once it has been examined today - will monitor off antibiotics for now
[2016-11-07 11:04] LABS: IRON 28 ug/dL (45-180)
--- NOTE | 2016-11-07 11:19 | CP.PCM.CON ---
History of Present Illness - History of Present Illness History of Present Illness: 56 year old male with PMH of left foot ulcer with history of abscess with MSSA, HTN, DM, History of left foot osteomyelitis, History of group B strep bacteremia , Dyslipidemia, Learning disability seen at bedside with attending Dr. Gage for left foot nonhealing plantar ulceration. Patient regularly goes to the wound care center and has been treated by Dr. Salazar for many weeks recently. He states that yesterday he was not feeling well and had been vomiting for the past few days so Dr. Salazar sent him down to the ED. Patient denies any acute events overnight. He denies any pain in his lower extremities at this time. patient denies any n/f/d/c/sob/cp. Review of Systems - Constitutional Constitutional: As Per HPI Past Patient History - Infectious Disease Hx of Infectious Diseases: None - Tetanus Immunizations Tetanus Immunization: Unknown - Past Social History Smoking Status: Never Smoked - CARDIAC Hx Hypertension: Yes Hx Peripheral Vascular Disease: Yes - PULMONARY Hx Respiratory Disorders: No - NEUROLOGICAL Hx Neurological Disorder: Yes - HEENT Hx HEENT Problems: Yes Other/Comment: wears glasses - RENAL Hx Chronic Kidney Disease: No - ENDOCRINE/METABOLIC Hx Diabetes Mellitus Type 2: Yes - HEMATOLOGICAL/ONCOLOGICAL Hx Blood Disorders: No - INTEGUMENTARY Other/Comment: PVD - MUSCULOSKELETAL/RHEUMATOLOGICAL Hx Falls: Yes Hx Osteomyelitis: Yes (left foot) - GASTROINTESTINAL Hx Gastrointestinal Disorders: No - GENITOURINARY/GYNECOLOGICAL Hx Genitourinary Disorders: No - PSYCHIATRIC Hx Schizophrenia: Yes Hx Substance Use: No - SURGICAL HISTORY Hx Orthopedic Surgery: Yes Other/Comment: left foot great toe amputation - ANESTHESIA Hx Anesthesia: No Hx Anesthesia Reactions: No Meds Allergies/Adverse Reactions: Allergies Allergy/AdvReac Type Severity Reaction Status Date / Time No Known Allergies Allergy Verified 05/15/16 14:26 - Medications Medications: Current Medications Amlodipine Besylate (Norvasc) 10 mg PO DAILY [facility] Last Admin: 11/07/16 09:45 Dose: 10 mg Atorvastatin Calcium (Lipitor) 10 mg PO DIN JOSHUA Fenofibrate (Tricor) 145 mg PO DAILY [facility] Last Admin: 11/07/16 09:45 Dose: 145 mg Hydrochlorothiazide (Microzide) 25 mg PO DAILY [facility] Last Admin: 11/07/16 09:44 Dose: 25 mg Insulin Human Regular (Humulin R Low) 0 units SC ACHS [facility] PRN Reason: Protocol Last Admin: 11/07/16 09:38 Dose: Not Given Lisinopril (Zestril) 40 mg PO DAILY [facility] Last Admin: 11/07/16 09:45 Dose: 40 mg Ondansetron HCl (Zofran Inj) 4 mg IVP Q6H PRN PRN Reason: Nausea/Vomiting Sodium Bicarbonate (Sodium Bicarbonate Tab) 650 mg PO BID [facility] Last Admin: 11/07/16 09:45 Dose: 650 mg Physical Exam - Constitutional Appears: Well, Non-toxic, No Acute Distress - Extremities Exam Additional comments: left foot focused: Vasc: palpable pedal pulses, TG wnl, CFT < 3 sec to all digits, nonpitting edema neuro: grossly diminished derm: nonpitting edema to LLE, open ulceration plantar foot at the level of the 2nd,3rd,4th MPJ measuring 4cm x 5cm x 0.5cm with with exposed tendon and bone, fibrogranular base, no purulence, moderate serous drainage, mild malodor, no fluctuance, no ascending cellulitis ortho: no pain on palpation to plantar left foot - Neurological Exam Neurological exam: Alert, Oriented x3 - Psychiatric Exam Psychiatric exam: Normal Affect, Normal Mood Results - Vital Signs Recent Vital Signs: Last Vital Signs Temp 98.5 F 11/07/16 06:00 Pulse 91 H 11/07/16 06:00 Resp 19 11/07/16 06:00 BP 124/68 11/07/16 09:45 Pulse Ox 97 11/07/16 06:00 - Labs Result Diagrams: 11/06/16 15:55 11/06/16 15:55 Labs: Laboratory Results - last 24 hr 11/06/16 11/07/16 11/07/16 21:48 10:02 10:30 POC Glucose (mg/dL) 312 H Iron 28 L TIBC 270 % Saturation 10 L Urine Color Yellow Urine Appearance Clear Urine pH 6.0 Ur Specific Wilson 1.020 Urine Protein Trace H Urine Glucose (UA) Negative Urine Ketones Negative Urine Blood Negative Urine Nitrate Negative Urine Bilirubin Negative Urine Urobilinogen 0.2 Ur Leukocyte Esterase Negative Urine RBC 0 - 2 Urine WBC 0 - 2 Ur Epithelial Cells 0 - 2 Hyaline Casts 0 - 2 Fine Granular Casts 0 - 2 Assessment & Plan - Assessment and Plan (Free Text) Assessment: 56 y/o male seen at bedside with attending Dr. Gage for estrada grade 3 left foot ulceration secondary to diabetes Plan: patient evaluated and chart reviewed seen at bedside with attending Dr. Gage labs and vitals reviewed; WBC 9.2, afebrile applied maxorb, DSD to left foot continue IV abx as per ID f/u MRI of left foot JOCELYNE/PVR at prior visit show relatively normal PVR waveforms, JOCELYNE 1.10 on left f/u x ray left foot podiatry will continue to follow while patient remains in house
[2016-11-07 12:40] LABS: ALB/GLOB RATIO 1.1 (1.1-1.8); BILIRUBIN,TOTAL 0.5 mg/dL (0.2-1.3); CALCIUM 9.7 mg/dL (8.4-10.5); TOTAL PROTEIN 6.6 g/dL (5.8-8.3)
[2016-11-07 12:42] LABS: POTASSIUM 5.7 mmol/L (3.6-5.0)
[2016-11-07] MEDS ORDERED: Sod Polystyrene Sulf 15 gm/60 ml Oral Susp PO ONE (12:43)
--- NOTE | 2016-11-07 13:31 | RAD ---
PROCEDURE: Left Foot Radiographs. HISTORY: rule out OM COMPARISON: 10/30/2016. FINDINGS: BONES: Status post partial amputation of the 1st metatarsal. There is no acute fracture or bone destruction. There is mild degenerative osteoarthrosis in the 5th MTP joint. There is a small plantar calcaneal spur. There is prominent dorsal calcaneal enthesophyte. JOINTS: There is mild degenerative osteoarthrosis in the mid none SOFT TISSUES: Normal. OTHER FINDINGS: None. IMPRESSION: Status post partial amputation of the 1st metatarsal. No radiographic evidence for osteomyelitis or bone destruction.
[2016-11-08] MEDS: Insulin Reg-LOW-Coverage SC SCH ×4 (08:29→22:30)
--- NOTE | 2016-11-08 10:30 | PN ---
DATE: 11/08/2016 SUBJECTIVE: The patient has no complaints of any chest pain, no shortness of breath, no headaches, n o dizziness. PHYSICAL EXAMINATION: VITAL SIGNS: Temperature is 98.1, pulse of 79, blood pressure is 110/68, respirations 20. GENERAL: The patient is comfortable, in no acute distress. HEENT: Anicteric sclerae. Moist mucosa. NECK: No JVD or adenopathy. CARDIAC: S1/S2. No murmurs. No rubs. Regular. RESPIRATORY: Clear to auscultation bilaterally. No wheezes, rales, or rhonchi. Good air entry. ABDOMEN: Bowel sounds are positive, soft, nontender, and nondistended. EXTREMITIES: No edema. Has 1+ pulses. LABORATORIES: Potassium is 5.5, creatinine is 1.8. Hemoglobin is 8.8. X-ray of the left foot shows amputation of the first metatarsal. No evidence of osteo. ASSESSMENT: 1. Left foot ulcer, secondary to diabetes. 2. Diabetes type 2. 3. Anemia. 4. Chronic kidney disease stage III. 5. Dyslipidemia. 6. Hyperkalemia. 7. Diabetic neuropathy. PLAN: The patient was given a dose of Kayexalate yesterday. We will need repeat blood work today to look at the potassium. The patient is on sodium bicarbonate for his metabolic acidosis. The patien t is on amlodipine for hypertension as well as lisinopril. The patient is on Tricor. An MRI is pend ing. He is being followed by podiatry and infectious disease. The patient's iron saturation is 10%. Waiting for his ferritin level to come back to decide about IV iron. His creatinine is at his base line. Rocky Riley MD cc: [id number] TT: 11/08/2016 10:29:40 Confirmation # [id number] Dictation # [id number]
--- NOTE | 2016-11-08 12:16 | CP.PCM.PN ---
Subjective - Date & Time of Evaluation Date of Evaluation: 11/08/16 Time of Evaluation: 12:13 - Subjective Subjective: 56 year old male seen at bedside with attending Dr. Salazar for left foot nonhealing plantar ulceration. Patient regularly goes to the wound care center and has been treated by Dr. Salazar for many weeks recently. Patient denies any acute events overnight. He denies any pain in his lower extremities at this time. patient denies any n/f/d/c/sob/cp. Objective - Vital Signs/Intake and Output Vital Signs (last 24 hours): Temp Pulse Resp BP Pulse Ox 98.1 F 79 20 110/68 99 11/08/16 08:03 11/08/16 08:03 11/08/16 08:03 11/08/16 09:09 11/08/16 08:03 Intake and Output: 11/08/16 11/08/16 06:59 18:59 Intake Total 540 Output Total 400 Balance 140 - Medications Medications: Current Medications Amlodipine Besylate (Norvasc) 10 mg PO DAILY [facility] Last Admin: 11/08/16 09:09 Dose: 10 mg Atorvastatin Calcium (Lipitor) 10 mg PO DIN [facility] Last Admin: 11/07/16 17:55 Dose: 10 mg Fenofibrate (Tricor) 145 mg PO DAILY [facility] Last Admin: 11/08/16 09:11 Dose: 145 mg Hydrochlorothiazide (Microzide) 25 mg PO DAILY [facility] Last Admin: 11/08/16 09:11 Dose: 25 mg Insulin Human Regular (Humulin R Low) 0 units SC ACHS [facility] PRN Reason: Protocol Last Admin: 11/08/16 08:29 Dose: Not Given Lisinopril (Zestril) 40 mg PO DAILY [facility] Last Admin: 11/08/16 09:10 Dose: 40 mg Ondansetron HCl (Zofran Inj) 4 mg IVP Q6H PRN PRN Reason: Nausea/Vomiting Sodium Bicarbonate (Sodium Bicarbonate Tab) 650 mg PO BID [facility] Last Admin: 11/08/16 09:10 Dose: 650 mg - Labs Labs: 11/07/16 10:30 PT 11.0 Seconds (9.9-11.8) 11/06/16 15:55 INR 1.02 (0.93-1.08) 11/06/16 15:55 APTT 28.0 Seconds (23.7-30.8) 11/06/16 15:55 - Constitutional Appears: Well, Non-toxic, No Acute Distress - Extremities Exam Additional comments: left foot focused: Vasc: palpable pedal pulses, TG wnl, CFT < 3 sec to all digits, nonpitting edema neuro: grossly diminished derm: nonpitting edema to LLE, open ulceration plantar foot at the level of the 2nd,3rd,4th MPJ measuring 3cm x 3.5cm x 0.5cm with with exposed tendon and bone , fibrogranular base, no purulence, moderate serous drainage, mild malodor, no fluctuance, no ascending cellulitis ortho: no pain on palpation to plantar left foot - Neurological Exam Neurological Exam: Alert, Awake, Oriented x3 - Psychiatric Exam Psychiatric exam: Normal Affect, Normal Mood Assessment and Plan - Assessment and Plan (Free Text) Assessment: 56 y/o male seen at bedside with attending Dr. Salazar for estrada grade 3 left foot ulceration secondary to diabetes Plan: patient evaluated and chart reviewed seen at bedside with Dr. Salazar labs and vitals reviewed; afebrile applied maxorb, DSD to left foot recommend IV abx as per ID wound cx from 11/06/16 shows: enterobacter cloacae f/u MRI of left foot JOCELYNE/PVR at prior visit show relatively normal PVR waveforms, JOCELYNE 1.10 on left x ray left foot shows no acute evidence of OM, will follow up with MRI podiatry will continue to follow while patient remains in house
[2016-11-08 12:20] LABS: HEMATOCRIT 30.2 % (42.0-52.0); MEAN CELL VOLUME 85.8 fL (80.0-105.0); MEAN CORPUSCULAR HEMOGLOBIN 27.8 pg (25.0-35.0); MEAN CORPUSCULAR HGB CONC 32.5 g/dl (31.0-37.0); MEAN PLATELET VOLUME 10.4 fl (7.0-11.0); RED CELL DISTRIBUTION WIDTH 15.2 % (11.5-14.5); WHITE BLOOD COUNT 6.8 10^3/ul (4.5-11.0)
[2016-11-08 12:24] LABS: CALCIUM 10.1 mg/dL (8.4-10.5)
[2016-11-08 12:34] LABS: POTASSIUM 5.9 mmol/L (3.6-5.0)
[2016-11-08] MEDS ORDERED: Sod Polystyrene Sulf 15 gm/60 ml Oral Susp PO ONE (12:36)
--- NOTE | 2016-11-08 15:05 | PN ---
DATE: 11/08/2016 The patient was seen earlier this morning in room 365, bed 1. No fevers and no chills. PHYSICAL EXAMINATION: VITAL SIGNS: Temperature is 98, blood pressure is 110/60, respiratory rate of 20. HEENT: Unremarkable. NECK: Supple. LUNGS: Decreased breath sounds. HEART: Normal S1, S2. ABDOMEN: Soft, nontender. EXTREMITIES: The foot is noted. LABORATORY EXAMINATION: Reveals a white count of 6.8. Chemistries reveal the BUN of 34, creatinine of 1.8. Urinalysis is noted. Microbiology reveals the blood cultures are negative. The patient had an x-ray of the foot, reveals status post partial amputation of first metatarsal. No evidence of os ericka or bone destruction. Review of orders reveals the patient is off of antibiotics. MRI is pending . ASSESSMENT AND PLAN: Reveals a 56-year-old with a left foot ulcer, history of abscess with methicill in-sensitive Staphylococcus aureus, hypertension, diabetes, history of left foot osteomyelitis with a group B strep bacteremia, dyslipidemia, status post hypoglycemic episode, a history of left foot pro ximal first metatarsal amputation and history of abscess, surrounding cellulitis, currently with no f [place], no chills. No evidence of infection for the chronic osteomyelitis; off of antibiotics. We wi ll evaluate the MRI and we will make further recommendation. We will discuss with Dr. Gage. Omar Umaña MD cc: [id number] TT: 11/08/2016 15:04:06 Confirmation # [id number] Dictation # [id number] tn
--- NOTE | 2016-11-08 21:03 | MRI ---
EXAM: MR Left Lower Extremity Without Intravenous Contrast, Foot CLINICAL HISTORY: The patient age is 56 years old and is male; Pain and signs and symptoms; Other: ? Osteo; Foot; Left; Prior surgery; Surgery date: 6+ months; Surgery type: Toe amputation as per patient; Additional info: Rule out om left foot Facility exam id and description: Mri footwoconl foot w/o contrast left TECHNIQUE: Multiplanar magnetic resonance images of the left foot without intravenous contrast. EXAM DATE/TIME: 11/08/2016 7:00 PM COMPARISON: MR - FOOT W/ W/O CONTRAST LEFT 05/17/2016 10:15:43 PM FINDINGS: Limitations: Evaluation for abscess is limited by the absence of intravenous contrast. LIGAMENTS: Lisfranc: No visualized acute tear. TENDONS: Flexor: No visualized acute tear. Extensor: No visualized acute tear. Peroneal: No visualized acute tear. Tibialis anterior: No visualized acute tear. Tibialis posterior: No visualized acute tear. Muscles: Muscle edema is visualized, suggestive of myositis or denervation. There is diffuse muscle atrophy. Fluid: Small tibiotalar and subtalar joint effusions are identified. Small effusions are visualized at the second through fifth MTP joints. Sinus tarsi: Minimal edema. Plantar fascia: There is mild edema adjacent to the proximal plantar fascia, suggestive of plantar fasciitis. Bones/joints: Postoperative changes are identified with amputation of the first digit and partial amputation of the first metatarsal bone. Acute edema is identified within the second metatarsal bone and digit as well as the mid to distal third metatarsal bone and proximal third phalanx. These findings are concerning for osteomyelitis in the appropriate clinical setting. Edema within the second metatarsal bone and digit have progressed although the edema within the third metatarsal bone and digit are stable. Erosive changes are visualized of the third metatarsal head, which have progressed. There is dislocation at the second MTP joint. There is a linear T1 hypointensity within the second metatarsal head, suggestive of fracture. This fracture is likely post traumatic or pathologic. Patchy edema seen within the talus, the cuboid bone, and medial cuneiform bone. This may be secondary to arthropathy or due to osteomyelitis . Soft tissue swelling is identified of the foot and ankle, consistent with cellulitis in the appropriate clinical setting. There is swelling of the soft tissues plantar to the second metatarsal head. There is decreased fluid plantar to the second and third metatarsal heads compared to the prior study. Cutaneous irregularity is visualized, suggestive of a small ulceration. A calcaneal spur is visualized. Within the distal fibula, there is a T2 hyperintense probable cyst measuring 1.0 x 0.9 cm. Soft tissues: Edema overlies the anterior talofibular and tibiofibular ligaments, likely due to ligament sprain or extension of soft tissue swelling. Other findings: The hindfoot extends out of the field of view of this study. IMPRESSION: 1. Postoperative changes are identified with amputation of the first digit and partial amputation of the first metatarsal bone. 2. Acute edema is identified within the second metatarsal bone and digit as well as the mid to distal third metatarsal bone and proximal third phalanx. These findings are concerning for osteomyelitis in the appropriate clinical setting. Edema within the second metatarsal bone and digit have progressed although the edema within the third metatarsal bone and digit are stable. Erosive changes are visualized of the third metatarsal head, which have progressed. 3. There is dislocation at the second MTP joint. There is a linear T1 hypointensity within the second metatarsal head, suggestive of fracture. This fracture is likely post traumatic or pathologic. 4. Patchy edema seen within the talus, the cuboid bone, and medial cuneiform bone. This may be secondary to arthropathy or due to osteomyelitis . 5. Soft tissue swelling is identified of the foot and ankle, consistent with cellulitis in the appropriate clinical setting. 6. Edema overlies the anterior talofibular and tibiofibular ligaments, likely due to ligament sprain or extension of soft tissue swelling. 7. Muscle edema is visualized, suggestive of myositis or denervation. There is diffuse muscle atrophy. 8. Small effusions are noted above. 9. There is swelling of the soft tissues plantar to the second metatarsal head. There is decreased fluid plantar to the second and third metatarsal heads compared to the prior study. Cutaneous irregularity is visualized, suggestive of a small ulceration. 10. There is mild edema adjacent to the proximal plantar fascia, suggestive of plantar fasciitis. 11. Additional findings described above.
[2016-11-09] MEDS: Insulin Reg-LOW-Coverage SC SCH ×3 (09:06→16:16)
--- NOTE | 2016-11-09 10:12 | PN ---
DATE: 11/09/2016 The patient is in bed, in no acute distress, nontoxic. No fevers, no chills. PHYSICAL EXAMINATION: VITAL SIGNS: Temperature is 98, blood pressure is 114/60, respiratory rate of 16. HEENT: Unremarkable. NECK: Supple. LUNGS: Have decreased breath sounds. HEART: Normal S1, S2. ABDOMEN: Soft and nontender. LABORATORY DATA: Reveals a white count of 6.8, hemoglobin of 9, platelets of 247. The chemistries r eveal a BUN of 34, creatinine of 1.8. Urinalysis is noted. Microbiology reveals the blood cultures are negative. Urine cultures are negative. The patient's MRI of the foot is noted with postoperativ e changes. Dr. Bassett's note is reviewed. Will follow with you. Omar Umaña MD cc: [id number] TT: 11/09/2016 09:21:28 Confirmation # [id number] Dictation # [id number] mn
[2016-11-09 12:14] LABS: ALB/GLOB RATIO 1.1 (1.1-1.8); BILIRUBIN,TOTAL 0.6 mg/dL (0.2-1.3); CALCIUM 9.7 mg/dL (8.4-10.5); POTASSIUM 5.1 mmol/L (3.6-5.0); TOTAL PROTEIN 7.6 g/dL (5.8-8.3)
[2016-11-09] MEDS ORDERED: Insulin Reg-LOW-Coverage ONE (12:19)
--- NOTE | 2016-11-09 12:24 | PN ---
DATE: 11/09/2016 SUBJECTIVE: A 56-year-old male seen at bedside for continued evaluation and management of a chronic recurring left diabetic ulceration that has had numerous bouts of osteomyelitis accompanied by numerous courses of 4-6 weeks of antibiotics treatment over the past several years. It has been decided, after discussion with his sister who provides consent for this intellectually disabled patient, it is in his best interest to have a transmetatarsal amputation to alleviate the burden of his left foot constantly breaking down. The patient has had every possible walking device that is available and, due to his severe roaming which is primarily caused by his intellectual disability, he can never stay off of his feet as required which ultimately results in his skin breaking down. The patient is scheduled for a transmetatarsal amputation on Saturday. VITAL SIGNS: Reveal a temperature of 98.5, pulse rate of 83, blood pressure 114 /67, respiratory rate of 18. LABORATORY DATA: Reveal a white count of 6.8, hemoglobin of 9.8, a hematocrit of 30.2, platelet count 247. Most recent microbiology report taken on 2016 reveals Enterobacter cloacae species. MRI report taken on 11/08 reveals osteomyelitis of the second metatarsal bone and digit with suspicion of osteomyelitis at the third metatarsal bone and phalanges as well. OBJECTIVE: Palpable pedal pulses noted bilaterally. The patient is unable to detect 5.07 gram monofilament wire testing bilaterally. Absent pedal hair growth noted bilaterally. Lower extremity skin presents shiny, discolored bilaterally. There is a large full-thickness ulceration on the plantar aspect of his left foot with visible second metatarsal bone, metatarsal bone protruding through the ulceration. Third digit: The wound also now probes to third metatarsal bone as well. There is noted to be serous drainage. No purulence, no abscess formation noted. ASSESSMENT: Osteomyelitis of the second metatarsal and accompanying phalanges as well as clinical osteomyelitis of the left third metatarsal. PLAN: The patient's foot was cleansed with normal sterile saline and application of Maxorb and a dry sterile dressing was applied. The patient is scheduled for transmetatarsal amputation on Saturday at 2 p.m. We will keep him n.p.o. Saturday night. Discussed case with Dr. Riley. Discussed case with his sister, Mercedes, who was amenable to the operation. The patient will be seen and followed daily. Jeb Salazar DPM cc: [id number] TT: 11/09/2016 12:23:30 Confirmation # [id number] Dictation # [id number] mn MTDDawit
[2016-11-09 17:00] VITALS: BP 150/85; PULSE 88; RESP 20; TEMP 97.5; O2SAT 99
--- NOTE | 2016-11-10 00:12 | DS ---
DATE OF DISCHARGE: 11/09/2016 DISCHARGE DIAGNOSES: 1. Left second toe osteomyelitis and left foot ulcer. 2. Chronic kidney disease. 3. Severe anemia. 4. Iron deficiency. 5. Diabetes mellitus type 2. HOSPITAL COURSE: The patient was admitted with left foot ulceration and pain. MRI of the left foot showed osteomyelitis of left second toe. He had several courses of antibiotics for the past several years. Evaluated by Dr. Gage, podiatry. He is scheduled for amputation of second left toe on Sat. He is being transferred to transitional care unit. Blood work also showed severe iron deficien cy. He also has anemia, baseline hemoglobin between 8 and 9 g/dL. Also has chronic kidney disease, renal functions have been stable. PHYSICAL EXAMINATION: GENERAL: On discharge, comfortable in bed, in no acute distress. VITAL SIGNS: Stable, afebrile, temperature 98.7, heart rate 80 per minute, blood pressure 120/80. NECK: No lymphadenopathy. CHEST: Air entry present, equal bilateral. No added sound. CARDIOVASCULAR: S1, S2 normal. No murmur, no gallop. ABDOMEN: Soft, nontender, no hepatosplenomegaly. EXTREMITIES: No edema. Left foot in dressing. CONDITION ON DISCHARGE: Stable. DISPOSITION: Discharged to transitional care unit. DISCHARGE MEDICATIONS: Norvasc 10 mg daily, Lipitor 10 mg daily, Tricor 145 mg daily, hydrochlorothi azide 25 mg daily, insulin sliding scale, lisinopril 40 mg daily, Zofran 4 mg IV q. 6 hours p.r.n., s odium bicarbonate 650 p.o. daily. Discussed with the staff nurse. Discussed with the patient. CONDITION: Stable. DIET: Diabetic diet. Time spent in preparing discharge and coordinating care, 50 minutes. Marilynn Moreno MD cc: [id number] TT: 11/10/2016 00:12:06 darleen
== END 2016-11-09 18:21 | DRG 638 ==
LOC: ED 13:30 → ERH 17:46 → 2RNO 22:36 → 3RNO 11-07 14:09
PROVIDERS: ADMIT Internal Medicine Nephrology; ATTEND Internal Medicine Nephrology
DX: E11.621 Type 2 diabetes mellitus with foot ulcer (principal); M86.9 Osteomyelitis, unspecified; E87.2 Acidosis; E11.22 Type 2 diabetes mellitus with diabetic chronic kidney disease; E11.42 Type 2 diabetes mellitus with diabetic polyneuropathy; L97.529 Non-pressure chronic ulcer of other part of left foot with unspecified severity; N18.3 Chronic kidney disease, stage 3 (moderate); E78.5 Hyperlipidemia, unspecified; D64.9 Anemia, unspecified; E11.649 Type 2 diabetes mellitus with hypoglycemia without coma; I12.9 Hypertensive chronic kidney disease with stage 1 through stage 4 chronic kidney disease, or unspecified chronic kidney disease; E11.69 Type 2 diabetes mellitus with other specified complication; E87.5 Hyperkalemia; F79 Unspecified intellectual disabilities; E61.1 Iron deficiency; E11.51 Type 2 diabetes mellitus with diabetic peripheral angiopathy without gangrene; F20.9 Schizophrenia, unspecified; F81.9 Developmental disorder of scholastic skills, unspecified; Z79.4 Long term (current) use of insulin

== ENCOUNTER 2016-11-09 18:21 | Inpatient (IN) | payer OTHER ==
[2016-11-09 19:51] VITALS: BMI 33.2
[2016-11-09] MEDS: Insulin Reg-LOW-Coverage SC SCH (21:26)
--- NOTE | 2016-11-10 09:04 | CP.PCM.PN ---
<Michell Shaffer - Last Filed: 11/10/16 08:59> Subjective - Date & Time of Evaluation Date of Evaluation: 11/10/16 Time of Evaluation: 07:59 - Subjective Subjective: 56 year old male patient was seen at bedside with attending Dr. Salazar this morning for left foot nonhealing plantar ulceration. This patient is scheduled for Right foot Transmetatarsal amputation by Dr. Salazar. Dressing to right foot remains clean dry and intact. Patient denies any acute events overnight. He denies any pain in his lower extremities at this time. patient denies any n/f/d/ c/sob/cp. Patient is aware of the surgery plan. Patient was explained of the surgical plan and agrees with the plan. Objective - Vital Signs/Intake and Output Vital Signs (last 24 hours): Temp Pulse Resp BP Pulse Ox 97.1 F L 86 18 122/78 11/09/16 22:31 11/09/16 22:31 11/09/16 22:31 11/09/16 22:31 - Medications Medications: Current Medications Amlodipine Besylate (Norvasc) 10 mg PO DAILY [facility] Atorvastatin Calcium (Lipitor) 10 mg PO DIN [facility] PRN Reason: Protocol Fenofibrate (Tricor) 145 mg PO DAILY [facility] PRN Reason: Protocol Hydrochlorothiazide (Hydrodiuril) 25 mg PO DAILY [facility] PRN Reason: Protocol Insulin Human Regular (Humulin R Low) 0 units SC ACHS [facility] PRN Reason: Protocol Last Admin: 11/09/16 21:26 Dose: Not Given Lisinopril (Zestril) 40 mg PO DAILY [facility] PRN Reason: Protocol Ondansetron HCl (Zofran Inj) 4 mg IVP Q6H PRN; Protocol PRN Reason: Nausea/Vomiting Sodium Bicarbonate (Sodium Bicarbonate Tab) 650 mg PO BID [facility]UA PRN Reason: Protocol - Constitutional Appears: Well, Non-toxic, No Acute Distress - Head Exam Head Exam: ATRAUMATIC - Extremities Exam Additional comments: Left lower extremity exam DERM: Open wound noted to plantar aspect of 2nd, 3rd and 4th metatarsal heads measuring 3cm x 3.5cm x 0.5cm with mostly fibrotic base. Positive probe to bone at the level of 2nd metatarsal, no purulence, moderate serous drainage, mild malodor, no fluctuance, no ascending cellulitis, no sign of acute infection is noted Vasc: palpable pedal pulses, TG wnl, CFT < 3 sec to all digits, nonpitting edema neuro: grossly diminished ortho: no pain on palpation to plantar left foot - Neurological Exam Neurological Exam: Alert, Awake, Oriented x3 - Psychiatric Exam Psychiatric exam: Normal Affect, Normal Mood - Skin Skin Exam: Normal Color, Warm Assessment and Plan - Assessment and Plan (Free Text) Assessment: 56 y/o male seen at bedside with attending Dr. Salazar for estrada grade 3 left foot ulceration secondary to diabetes Due to TMA Left on Saturday11/11/2016 Plan: patient evaluated and chart reviewed seen at bedside with Dr. Salazar labs and vitals reviewed; afebrile applied maxorb, DSD to left foot Continue IV abx as per ID Patient is due to surgery Saturday11/12/2016 Put NPO after 11/11/2016 11 PM wound cx from 11/06/16 shows: enterobacter cloacae MRI of left foot reveals OM to 2nd and 3rd metatarsals JOCELYNE/PVR at prior visit show relatively normal PVR waveforms, JOCELYNE 1.10 on left podiatry will continue to follow while patient remains in house <Jeb Salazar - Last Filed: 11/12/16 13:01> Objective - Vital Signs/Intake and Output Vital Signs (last 24 hours): Temp Pulse Resp BP Pulse Ox 97.9 F 86 14 127/87 99 11/12/16 10:00 11/12/16 10:00 11/12/16 10:00 11/12/16 10:00 11/12/16 10:00 Intake and Output: 11/12/16 11/12/16 06:59 18:59 Intake Total 600 420 Output Total 900 Balance -300 420 - Medications Medications: Current Medications Amlodipine Besylate (Norvasc) 10 mg PO DAILY [facility] Last Admin: 11/12/16 10:17 Dose: Not Given Atorvastatin Calcium (Lipitor) 10 mg PO DIN [facility] PRN Reason: Protocol Last Admin: 11/11/16 18:15 Dose: 10 mg Fenofibrate (Tricor) 145 mg PO DAILY [facility] PRN Reason: Protocol Last Admin: 11/12/16 10:17 Dose: Not Given Hydrochlorothiazide (Hydrodiuril) 25 mg PO DAILY [facility] PRN Reason: Protocol Last Admin: 11/12/16 10:16 Dose: Not Given Insulin Human Regular (Humulin R Low) 0 units SC ACHS [facility] PRN Reason: Protocol Last Admin: 11/12/16 07:54 Dose: 1 units Lisinopril (Zestril) 40 mg PO DAILY [facility] PRN Reason: Protocol Last Admin: 11/12/16 10:17 Dose: Not Given Ondansetron HCl (Zofran Inj) 4 mg IVP Q6H PRN; Protocol PRN Reason: Nausea/Vomiting Sodium Bicarbonate (Sodium Bicarbonate Tab) 650 mg PO BID [facility]UA PRN Reason: Protocol Last Admin: 11/12/16 10:17 Dose: Not Given Attending/Attestation - Attestation I have personally seen and examined this patient.: Yes I have fully participated in the care of the patient.: Yes I have reviewed all pertinent clinical information, including history, physical exam and plan: Yes
[2016-11-10] MEDS: Insulin Reg-LOW-Coverage SC SCH ×3 (11:41→21:59)
--- NOTE | 2016-11-10 19:25 | CON ---
DATE: 11/10/2016 The patient was seen earlier this morning in room 322. CHIEF COMPLAINT: Weakness. HISTORY OF PRESENT ILLNESS: This is a 56-year-old male with past medical history significant for ismael betes mellitus, hypertension, high cholesterol, mentally challenged, history of group B strep bactere avery, history of left foot osteomyelitis, severe peripheral vascular disease, history of foot surgery, no known allergies, who was transferred to acute care with a diagnosis of osteomyelitis. The patien t is scheduled for OR on Saturday. REVIEW OF SYSTEMS: At this time reveals no fevers, no chills, no nausea, no vomiting, no chest pain or shortness of breath. No diarrhea or constipation. PAST MEDICAL HISTORY: Significant for hypertension, diabetes, left foot osteomyelitis, group B strep bacteremia, dyslipidemia, learning disability. PAST SURGICAL HISTORY: Significant for foot surgery. ALLERGIES: The patient has no known allergies. MEDICATIONS: Reviewed. PHYSICAL EXAMINATION: VITAL SIGNS: Temperature of 98, blood pressure is 112/70, respiratory rate of 16. HEENT: Unremarkable. NECK: Supple. LUNGS: Have decreased breath sounds. HEART: Normal S1, S2. ABDOMEN: Soft. EXTREMITIES: The foot is noted as per description of podiatry. LABORATORY EXAMINATION: Reveals the patient's white count is 6.8, hemoglobin of 9, platelets of 247. Sed rate of 83. The chemistries reveal the BUN of 40, creatinine of 1.7. The patient also had an MRI of the foot which revealed an evaluation for abscess is limited. No visual acute tear of ligamen ts, dislocation is noted. Dr. Vega ____ reads the MRI. Dr. Moreno's discharge summary is noted. ASSESSMENT AND PLAN: This is a 56-year-old male with diabetes, hypertension, high cholesterol, menta lly challenged, learning disability and group B strep bacteremia by history and peripheral vascular d isease, now with left foot ulcer and chronic osteomyelitis with no evidence of an active, septic pict ure. The patient is scheduled for surgery on Saturday. Currently off of antibiotics, chronic osteomye litis with no evidence of active infection. Dr. Salazar's progress note from yesterday is noted. He states that he scheduled the patient for transmetatarsal amputation for Saturday at 2 p.m., should send for pathology and the OR cultures and will make further recommendations upon availability of OR cult ures and/or pathology. Currently off of antibiotics, afebrile with normal white count. Omar Umaña MD cc: [phone] TT: 11/10/2016 19:24:42 Confirmation # [id number] Dictation # [id number] jn
[2016-11-11] MEDS: Insulin Reg-LOW-Coverage SC SCH ×4 (06:46→23:09)
--- NOTE | 2016-11-11 12:18 | PN ---
DATE: 11/11/2016 The patient is in bed, in no acute distress. PHYSICAL EXAMINATION: VITAL SIGNS: Temperature is 98, blood pressure is 117/70, respiratory rate of 18. HEENT: Unremarkable. NECK: Supple. LUNGS: Have decreased breath sounds. HEART: Normal S1, S2. ABDOMEN: Soft, nontender. LABORATORY EXAMINATION: Reveals the patient's labs are reviewed. ASSESSMENT AND PLAN: A 56-year-old male, seen earlier today in room 322, past medical history diabet es, high cholesterol, hypertension, mentally challenged, history of group B Strep bacteremia, history of left foot osteomyelitis, severe peripheral vascular disease, history of left foot surgery, who is now off of antibiotics, chronic osteomyelitis, no evidence of an active infection. The patient is s cheduled for a transmetatarsal amputation for tomorrow at 2. I would recommend sending the bone biop sy for bone cultures and bone pathology and will make further recommendations based on the pathology and cultures from the OR. Currently off of antibiotics, no active acute infection, just the chronic osteomyelitis. Omar Umaña MD cc: 350 TT: 11/11/2016 12:17:29 Confirmation # [id number] Dictation # [id number] en
--- NOTE | 2016-11-11 22:56 | CP.PCM.HP ---
History of Present Illness - History of Present Illness History of Present Illness: Transferred from regular floor for gait dysfunction. he has left 2 toe osteomyelitis. He has CKD III. has severe iron deficiency anemia. Hb/hct stable. Present on Admission - Present on Admission Any Indicators Present on Admission: No Review of Systems - Constitutional Constitutional: Fatigue, Malaise - EENT Eyes: absent: As Per HPI, Blind Spots, Blurred Vision, Change in Vision, Decreased Night Vision, Diplopia, Discharge, Dry Eye, Exophthalmos, Floaters, Irritation, Itchy Eyes, Loss of Peripheral Vision, Pain, Photophobia, Requires Corrective Lenses, Sees Flashes, Spots in Vision, Tunnel Vision, Other Visual Disturbances, Loss of Vision, Other Nose/Mouth/Throat: absent: As Per HPI, Epistaxis, Nasal Congestion, Nasal Discharge, Nasal Obstruction, Nasal Trauma, Nose Pain, Post Nasal Drip, Sinus Pain, Sinus Pressure, Bleeding Gums, Change in Voice, Dental Pain, Dry Mouth, Dysphagia, Halitosis, Hoarsness, Lip Swelling, Mouth Lesions, Mouth Pain, Odynophagia, Sore Throat, Throat Swelling, Tongue Swelling, Facial Pain, Neck Pain, Neck Mass, Other - Cardiovascular Cardiovascular: Dyspnea on Exertion - Respiratory Respiratory: absent: As Per HPI, Cough, Dyspnea, Hemoptysis, Dyspnea on Exertion , Wheezing, Snoring, Stridor, Pain on Inspiration, Chest Congestion, Excessive Mucous Production, Change in Mucous Color, Pain with Coughing, Other - Gastrointestinal Gastrointestinal: absent: As Per HPI, Abdominal Pain, Belching, Bloating, Change in Bowel Habits, Change in Stool Character, Coffee Ground Emesis, Constipation, Cramping, Diarrhea, Dyspepsia, Dysphagia, Early Satiety, Excessive Flatus, Fecal Incontinence, Heartburn, Hematemesis, Hematochezia, Loose Stools, Melena, Nausea, Odynophagia, Temesmus, Vomiting, Other - Genitourinary Genitourinary: absent: As Per HPI, Change in Urinary Stream, Difficulty Urinating, Dysuria, Flank Pain, Hematuria, Pyuria, Nocturia, Urinary Incontinence, Urinary Frequency, Urinary Hesitance, Urinary Urgency, Voiding Freq/Small Amts, Freq UTI, Hx Renal/Bladder Calculi, Hx /Renal Surgery, Bladder Distension, Other - Musculoskeletal Additional comments: left 2 toe osteomyelitis - Integumentary Integumentary: As Per HPI - Neurological Neurological: absent: As Per HPI, Abnormal Gait, Abnormal Hearing, Abnormal Movements, Abnormal Speech, Behavioral Changes, Burning Sensations, Confusion, Convulsions, Disequilibrium, Dizziness, Numbness, Focal Weakness, Frequent Falls , Headaches, Lack of Coordination, Loss of Vision, Memory Loss, Paresthesias, Radicular Pain, Restless Legs, Sensory Deficit, Syncope, Tingling, Tremor, Vertigo, Weakness, Other Visual Disturbances, Other - Endocrine Endocrine: absent: As Per HPI, Change in Body Appearance, Change in Libido, Cold Intolorance, Deepening of Voice, Excessive Sweating, Fatigue, Flushing, Heat Intolorance, Increase in Ring/Shoe/Hat Size, Palpitations, Polydipsia, Polyphagia, Polyuria, Other - Hematologic/Lymphatic Hematologic: As Per HPI Past Patient History - Infectious Disease Hx of Infectious Diseases: None - Tetanus Immunizations Tetanus Immunization: Unknown - Past Social History Smoking Status: Never Smoked - CARDIAC Hx Hypertension: Yes - PULMONARY Hx Respiratory Disorders: No - NEUROLOGICAL Hx Neurological Disorder: Yes - HEENT Hx HEENT Problems: Yes Other/Comment: wears glasses - RENAL Hx Chronic Kidney Disease: No - ENDOCRINE/METABOLIC Hx Diabetes Mellitus Type 2: Yes - HEMATOLOGICAL/ONCOLOGICAL Hx Blood Disorders: No - INTEGUMENTARY Other/Comment: PVD - MUSCULOSKELETAL/RHEUMATOLOGICAL Hx Falls: No - GASTROINTESTINAL Hx Gastrointestinal Disorders: No - GENITOURINARY/GYNECOLOGICAL Hx Genitourinary Disorders: No Hx Reproductive Disorders: No - PSYCHIATRIC Hx Schizophrenia: Yes Hx Substance Use: No - SURGICAL HISTORY Hx Orthopedic Surgery: Yes Other/Comment: left foot great toe amputation - ANESTHESIA Hx Anesthesia: No Hx Anesthesia Reactions: No Meds Allergies/Adverse Reactions: Allergies Allergy/AdvReac Type Severity Reaction Status Date / Time No Known Allergies Allergy Verified 11/09/16 19:51 Physical Exam - Constitutional Appears: Non-toxic - Head Exam Head Exam: ATRAUMATIC, NORMAL INSPECTION, NORMOCEPHALIC - Eye Exam Eye Exam: Normal appearance - ENT Exam ENT Exam: absent: Mucous Membranes Dry, Mucous Membranes Moist, Normal Exam, Normal External Ear Exam, Normal Oropharynx, TM's Normal Bilaterally - Neck Exam Neck exam: Negative for: Full Rom, Lymphadenopathy, Meningismus, Normal Inspection, Tenderness, Thyromegaly - Cardiovascular Exam Cardiovascular Exam: REGULAR RHYTHM, +S1, +S2 - GI/Abdominal Exam GI & Abdominal Exam: Firm, Normal Bowel Sounds, Soft - Extremities Exam Extremities exam: Positive for: normal inspection - Skin Skin Exam: Normal Color, Warm Results - Vital Signs Recent Vital Signs: Last Vital Signs Temp 98.3 F 11/11/16 15:44 Pulse 86 11/11/16 15:44 Resp 18 11/11/16 15:44 BP 115/71 11/11/16 15:44 Pulse Ox 100 11/11/16 15:44 - Labs Labs: Laboratory Results - last 24 hr 11/10/16 11/11/16 11/11/16 11:19 04:49 11:14 POC Glucose (mg/dL) 197 H 136 H 191 H 11/11/16 16:45 POC Glucose (mg/dL) 166 H Assessment & Plan - Assessment and Plan (Free Text) Assessment: 1. left second toe osteomyelitis. : amputation 2 nd toe planned for saturday. 2. CKD III. stable. 3. iron deficiency : s/p one dose of IV iron. 4. DM II : controlled on current meds. 5. Bedside PT. - Date & Time Date: 11/11/16 Time: 15:00
[2016-11-12] MEDS: Insulin Reg-LOW-Coverage SC SCH ×4 (07:54→23:15)
--- NOTE | 2016-11-12 09:52 | PN ---
DATE: 11/12/2016 DATE: 11/12/2016 SUBJECTIVE: The patient has no complaints of any chest pain, no shortness of breath, no headaches or dizziness. PHYSICAL EXAMINATION: VITAL SIGNS: Temperature is 98.3, pulse of 86. Blood pressure is 115/71, respirations 18. GENERAL: The patient is comfortable, in no acute distress. HEENT: Anicteric sclerae. Moist mucosa. NECK: No JVD or adenopathy. CARDIAC: S1/S2. No murmurs. No rubs. Regular. RESPIRATORY: Clear to auscultation bilaterally. No wheezes, rales, or rhonchi. Good air entry. ABDOMEN: Bowel sounds are positive, soft, nontender, and nondistended. EXTREMITIES: No edema. Has 1+ pulses. ASSESSMENT: 1. Left second toe osteomyelitis. 2. Chronic kidney disease, stage III. 3. Iron deficiency anemia. 4. Diabetes type 2. 5. Diabetic neuropathy. PLAN: The patient is currently comfortable. He is going for surgery today for amputation. He is on hydrochlorothiazide for hypertension. The patient is on Lipitor for dyslipidemia. He is on sodium bicarb. He is going to continue. He is on lisinopril for hypertension. He is on a carbohydrate-con sistent diet. Rocky Riley MD cc: [id number] TT: 11/12/2016 09:51:34 Confirmation # [id number] Dictation # [id number] chemo
[2016-11-12] MEDS ORDERED: HYDROmorphone 0.5 mg/0.5 ml ISec IVP PRN (16:22)
[2016-11-12] MEDS ORDERED: Lactated Ringer's 1,000 ML IV SCH (16:22)
--- NOTE | 2016-11-12 16:36 | PN ---
DATE: 11/12/2016 The patient is in bed in no acute distress. PHYSICAL EXAMINATION: VITAL SIGNS: Temperature is 98, blood pressure is 120/70, respiratory rate of 16. HEENT: Unremarkable. NECK: Supple. LUNGS: Have decreased breath sounds. HEART: Normal S1, S2. ABDOMEN: Soft. EXTREMITIES: Examination of the foot is noted. Dr. Riley's note is reviewed. ASSESSMENT AND PLAN: This is a 56-year-old male seen earlier today in room 322 with diabetes and hig h cholesterol and hypertension, mentally challenged, history of group B strep bacteremia, history of left foot osteomyelitis, severe peripheral vascular disease, history of left foot surgery. Currently with chronic osteomyelitis with no evidence of sepsis and the patient is scheduled for transmetatars al amputation today and currently off of antibiotics and asks for Gram stain and cultures and p athology. We will make further recommendations. Omar Umaña MD cc: 350 TT: 11/12/2016 16:36:02 Confirmation # [id number] Dictation # [id number] darleen
[2016-11-12] MEDS ORDERED: Oxycodone/Acetaminophen 5/325 mg Tab PO PRN ×2 (16:37)
--- NOTE | 2016-11-13 10:19 | RAD ---
PROCEDURE: Left Foot Radiographs. HISTORY: s/p left foot surgery COMPARISON: None. FINDINGS: BONES: There has been recent amputation at the level of the proximal metatarsals. Surgical clips are seen. The remaining bones of the foot are unremarkable JOINTS: Normal. SOFT TISSUES: Normal. OTHER FINDINGS: None. IMPRESSION: Status post amputation of the metatarsals
[2016-11-13] MEDS: Insulin Reg-LOW-Coverage SC SCH ×3 (12:17→23:12)
--- NOTE | 2016-11-13 15:42 | CP.PCM.PN ---
<Lauren Bassett - Last Filed: 11/13/16 15:39> Subjective - Date & Time of Evaluation Date of Evaluation: 11/13/16 Time of Evaluation: 15:39 - Subjective Subjective: 56 y/o male seen at bedside with attending Dr. Salazar 1 day s/p left foot TMA. Patient denies any acute events overnight. Patient denies any pain in his foot. Patient was performing PT- nonweightbearing to LLE with walker at the time of visit. Patient denies any n/f/v/d/c/sob. Objective - Vital Signs/Intake and Output Vital Signs (last 24 hours): Temp Pulse Resp BP Pulse Ox 98.3 F 88 17 145/77 100 11/13/16 10:00 11/13/16 10:00 11/13/16 10:00 11/13/16 10:42 11/13/16 10:00 Intake and Output: 11/13/16 11/13/16 06:59 18:59 Intake Total 420 Balance 420 - Medications Medications: Current Medications Acetaminophen (Tylenol 325mg Tab) 650 mg PO Q4H PRN PRN Reason: Pain, Mild (1-3) Amlodipine Besylate (Norvasc) 10 mg PO DAILY [facility] Last Admin: 11/13/16 10:42 Dose: 10 mg Atorvastatin Calcium (Lipitor) 10 mg PO DIN [facility] PRN Reason: Protocol Last Admin: 11/12/16 18:33 Dose: 10 mg Fenofibrate (Tricor) 145 mg PO DAILY [facility] PRN Reason: Protocol Last Admin: 11/13/16 10:42 Dose: 145 mg Hydrochlorothiazide (Hydrodiuril) 25 mg PO DAILY [facility] PRN Reason: Protocol Last Admin: 11/13/16 10:41 Dose: 25 mg Insulin Human Regular (Humulin R Low) 0 units SC ACHS [facility] PRN Reason: Protocol Last Admin: 11/13/16 12:17 Dose: 1 units Lisinopril (Zestril) 40 mg PO DAILY [facility] PRN Reason: Protocol Last Admin: 11/13/16 10:43 Dose: 40 mg Ondansetron HCl (Zofran Inj) 4 mg IVP Q6H PRN; Protocol PRN Reason: Nausea/Vomiting Oxycodone/Acetaminophen (Percocet 5/325 Mg Tab) 1 tab PO Q4H PRN PRN Reason: Pain, moderate (4-7) Stop: 11/15/16 16:38 Oxycodone/Acetaminophen (Percocet 5/325 Mg Tab) 2 tab PO Q4H PRN PRN Reason: Pain, severe (8-10) Stop: 11/15/16 16:38 Sodium Bicarbonate (Sodium Bicarbonate Tab) 650 mg PO BID J[facility]UA PRN Reason: Protocol Last Admin: 11/13/16 10:42 Dose: 650 mg - Constitutional Appears: Well, Non-toxic, No Acute Distress - Extremities Exam Additional comments: Vasc: palpable pedal pulses, TG wnl, CFT < 3 sec to all digits, nonpitting edema Derm: surgical site intact, well coapted, sutures and ori are intact to the left distal stump site, no active drainage, no purulence, no wound dehiscence, no malodor, no fluctuance, no ascending cellulitis, mild sanguinous drainage on palpation and probing neuro: grossly diminished ortho: no pain on palpation to plantar left foot - Neurological Exam Neurological Exam: Alert, Awake, Oriented x3 - Psychiatric Exam Psychiatric exam: Normal Affect, Normal Mood Assessment and Plan - Assessment and Plan (Free Text) Assessment: 56 y/o male seen at bedside 1 day s/p left foot TMA Plan: patient evaluated and chart reviewed seen at bedside with attending Dr. Salazar labs and vitals reviewed; afebrile continue IV abx as per ID extracted sanguinous fluid from surgical incision site using probe and gauze applied betadine, adaptic, kerlix, OCTAVIANO to LLE continue nonweightbearing to both lower extremities except for bathroom priviledges podiatry will continue to follow while patient remains in house <Jeb Salazar - Last Filed: 11/16/16 11:07> Objective - Vital Signs/Intake and Output Vital Signs (last 24 hours): Temp Pulse Resp BP Pulse Ox 98 F 93 H 18 104/64 99 11/16/16 06:00 11/16/16 06:00 11/16/16 06:00 11/16/16 09:58 11/16/16 06:00 - Medications Medications: Current Medications Acetaminophen (Tylenol 325mg Tab) 650 mg PO Q4H PRN PRN Reason: Pain, Mild (1-3) Amlodipine Besylate (Norvasc) 10 mg PO DAILY [facility] Last Admin: 11/16/16 09:58 Dose: 10 mg Atorvastatin Calcium (Lipitor) 10 mg PO DIN [facility] PRN Reason: Protocol Last Admin: 11/15/16 17:47 Dose: 10 mg Ciprofloxacin (Cipro) 250 mg PO Q12 [facility] PRN Reason: Protocol Stop: 11/21/16 22:01 Last Admin: 11/16/16 09:57 Dose: 250 mg Fenofibrate (Tricor) 145 mg PO DAILY [facility] PRN Reason: Protocol Last Admin: 11/16/16 09:59 Dose: 145 mg Hydrochlorothiazide (Hydrodiuril) 25 mg PO DAILY [facility] PRN Reason: Protocol Last Admin: 11/16/16 09:57 Dose: 25 mg Insulin Human Regular (Humulin R Low) 0 units SC ACHS J[facility]UA PRN Reason: Protocol Last Admin: 11/16/16 06:47 Dose: 1 units Lisinopril (Zestril) 40 mg PO DAILY [facility] PRN Reason: Protocol Last Admin: 11/16/16 09:59 Dose: 40 mg Ondansetron HCl (Zofran Inj) 4 mg IVP Q6H PRN; Protocol PRN Reason: Nausea/Vomiting Sodium Bicarbonate (Sodium Bicarbonate Tab) 650 mg PO BID JOSHUA PRN Reason: Protocol Last Admin: 11/16/16 09:58 Dose: 650 mg Attending/Attestation - Attestation I have personally seen and examined this patient.: Yes I have fully participated in the care of the patient.: Yes I have reviewed all pertinent clinical information, including history, physical exam and plan: Yes
--- NOTE | 2016-11-13 23:41 | CP.PCM.PN ---
Subjective - Date & Time of Evaluation Date of Evaluation: 11/13/16 Time of Evaluation: 07:00 - Subjective Subjective: DOING WELL Objective - Vital Signs/Intake and Output Vital Signs (last 24 hours): Temp Pulse Resp BP Pulse Ox 98.3 F 88 17 145/77 100 11/13/16 10:00 11/13/16 10:00 11/13/16 10:00 11/13/16 10:42 11/13/16 10:00 Intake and Output: 11/13/16 11/14/16 18:59 06:59 Intake Total 420 Balance 420 - Medications Medications: Current Medications Acetaminophen (Tylenol 325mg Tab) 650 mg PO Q4H PRN PRN Reason: Pain, Mild (1-3) Amlodipine Besylate (Norvasc) 10 mg PO DAILY [facility] Last Admin: 11/13/16 10:42 Dose: 10 mg Atorvastatin Calcium (Lipitor) 10 mg PO DIN [facility] PRN Reason: Protocol Last Admin: 11/13/16 17:37 Dose: 10 mg Fenofibrate (Tricor) 145 mg PO DAILY [facility] PRN Reason: Protocol Last Admin: 11/13/16 10:42 Dose: 145 mg Hydrochlorothiazide (Hydrodiuril) 25 mg PO DAILY [facility] PRN Reason: Protocol Last Admin: 11/13/16 10:41 Dose: 25 mg Insulin Human Regular (Humulin R Low) 0 units SC ACHS [facility] PRN Reason: Protocol Last Admin: 11/13/16 23:12 Dose: Not Given Lisinopril (Zestril) 40 mg PO DAILY [facility] PRN Reason: Protocol Last Admin: 11/13/16 10:43 Dose: 40 mg Ondansetron HCl (Zofran Inj) 4 mg IVP Q6H PRN; Protocol PRN Reason: Nausea/Vomiting Oxycodone/Acetaminophen (Percocet 5/325 Mg Tab) 1 tab PO Q4H PRN PRN Reason: Pain, moderate (4-7) Stop: 11/15/16 16:38 Oxycodone/Acetaminophen (Percocet 5/325 Mg Tab) 2 tab PO Q4H PRN PRN Reason: Pain, severe (8-10) Stop: 11/15/16 16:38 Sodium Bicarbonate (Sodium Bicarbonate Tab) 650 mg PO BID [facility] PRN Reason: Protocol Last Admin: 11/13/16 17:37 Dose: 650 mg - Constitutional Appears: Well - Head Exam Head Exam: ATRAUMATIC, NORMAL INSPECTION, NORMOCEPHALIC - Eye Exam Eye Exam: EOMI, Normal appearance, PERRL Pupil Exam: NORMAL ACCOMODATION, PERRL - ENT Exam ENT Exam: Mucous Membranes Moist, Normal Exam - Neck Exam Neck Exam: Full ROM, Normal Inspection. absent: Lymphadenopathy - Respiratory Exam Respiratory Exam: Clear to Ausculation Bilateral, NORMAL BREATHING PATTERN - Cardiovascular Exam Cardiovascular Exam: REGULAR RHYTHM, +S1, +S2. absent: Murmur - GI/Abdominal Exam GI & Abdominal Exam: Soft, Normal Bowel Sounds. absent: Tenderness - Rectal Exam Rectal Exam: NORMAL INSPECTION - Exam Exam: Circumcision, NORMAL INSPECTION External exam: NORMAL EXTERNAL EXAM Speculum exam: NORMAL SPECULUM EXAM Bimanual exam: NORMAL BIMANUAL EXAM - Extremities Exam Extremities Exam: Full ROM, Normal Capillary Refill, Normal Inspection. absent : Joint Swelling, Pedal Edema - Back Exam Back Exam: NORMAL INSPECTION - Neurological Exam Neurological Exam: Alert, Awake, CN II-XII Intact, Normal Gait, Oriented x3 - Psychiatric Exam Psychiatric exam: Normal Affect, Normal Mood - Skin Skin Exam: Dry, Intact, Normal Color, Warm Assessment and Plan (1) Diabetic infection of left foot Status: Acute - Assessment and Plan (Free Text) Assessment: CHRONIC OSTEO Plan: OFF OF ABX CHECK PATH CHEK OR CULTURES
--- NOTE | 2016-11-14 10:08 | CP.PCM.PN ---
Subjective - Date & Time of Evaluation Date of Evaluation: 11/14/16 Time of Evaluation: 10:05 - Subjective Subjective: 56 y/o male seen at bedside 2 day s/p left foot TMA. Patient denies any acute events overnight. Patient denies any pain in his foot. Patient has been non- weightbearing to his left lower extremity. Patient denies any n/f/v/d/c/sob. No other pedal complaints at this time. Objective - Vital Signs/Intake and Output Vital Signs (last 24 hours): Temp Pulse Resp BP Pulse Ox 98.1 F 95 H 20 122/68 98 11/14/16 06:00 11/14/16 06:00 11/14/16 06:00 11/14/16 06:00 11/14/16 06:00 - Medications Medications: Current Medications Acetaminophen (Tylenol 325mg Tab) 650 mg PO Q4H PRN PRN Reason: Pain, Mild (1-3) Amlodipine Besylate (Norvasc) 10 mg PO DAILY [facility] Last Admin: 11/13/16 10:42 Dose: 10 mg Atorvastatin Calcium (Lipitor) 10 mg PO DIN [facility] PRN Reason: Protocol Last Admin: 11/13/16 17:37 Dose: 10 mg Fenofibrate (Tricor) 145 mg PO DAILY [facility] PRN Reason: Protocol Last Admin: 11/13/16 10:42 Dose: 145 mg Hydrochlorothiazide (Hydrodiuril) 25 mg PO DAILY [facility] PRN Reason: Protocol Last Admin: 11/13/16 10:41 Dose: 25 mg Insulin Human Regular (Humulin R Low) 0 units SC ACHS [facility] PRN Reason: Protocol Last Admin: 11/13/16 23:12 Dose: Not Given Lisinopril (Zestril) 40 mg PO DAILY [facility] PRN Reason: Protocol Last Admin: 11/13/16 10:43 Dose: 40 mg Ondansetron HCl (Zofran Inj) 4 mg IVP Q6H PRN; Protocol PRN Reason: Nausea/Vomiting Oxycodone/Acetaminophen (Percocet 5/325 Mg Tab) 1 tab PO Q4H PRN PRN Reason: Pain, moderate (4-7) Stop: 11/15/16 16:38 Oxycodone/Acetaminophen (Percocet 5/325 Mg Tab) 2 tab PO Q4H PRN PRN Reason: Pain, severe (8-10) Stop: 11/15/16 16:38 Sodium Bicarbonate (Sodium Bicarbonate Tab) 650 mg PO BID [facility] PRN Reason: Protocol Last Admin: 11/13/16 17:37 Dose: 650 mg - Constitutional Appears: Well, Non-toxic, No Acute Distress - Extremities Exam Additional comments: Focused left lower extremity physical exam: Vasc: palpable pedal pulses, TG wnl, CFT < 3 sec to all digits, nonpitting edema Derm: surgical site intact, well coapted, sutures and ori are intact to the left distal stump site, 4cc of sanguinous drainage was expressed from distal surgical site. no purulence, no wound dehiscence, no malodor, no fluctuance, no ascending cellulitis neuro: grossly diminished ortho: no pain on palpation to plantar left foot - Neurological Exam Neurological Exam: Alert, Awake, Oriented x3 - Psychiatric Exam Psychiatric exam: Normal Affect, Normal Mood Assessment and Plan - Assessment and Plan (Free Text) Assessment: 56 y/o male seen at bedside 2 day s/p left foot TMA Plan: patient evaluated and chart reviewed Discussed with attending Dr. Gage labs and vitals reviewed; afebrile continue IV abx as per ID extracted sanguinous fluid from surgical incision site using probe and gauze applied betadine, adaptic, kerlix, OCTAVIANO to LLE continue nonweightbearing to both lower extremities except for bathroom priviledges podiatry will continue to follow while patient remains in house
[2016-11-14] MEDS: Insulin Reg-LOW-Coverage SC SCH ×3 (12:30→21:33)
--- NOTE | 2016-11-14 20:47 | CP.PCM.PN ---
Subjective - Date & Time of Evaluation Date of Evaluation: 11/14/16 Time of Evaluation: 07:00 - Subjective Subjective: DOING WELL Objective - Vital Signs/Intake and Output Vital Signs (last 24 hours): Temp Pulse Resp BP Pulse Ox 97.1 F L 93 H 18 117/68 100 11/14/16 10:00 11/14/16 10:00 11/14/16 10:00 11/14/16 10:28 11/14/16 10:00 - Medications Medications: Current Medications Acetaminophen (Tylenol 325mg Tab) 650 mg PO Q4H PRN PRN Reason: Pain, Mild (1-3) Amlodipine Besylate (Norvasc) 10 mg PO DAILY [facility] Last Admin: 11/14/16 10:28 Dose: 10 mg Atorvastatin Calcium (Lipitor) 10 mg PO DIN [facility] PRN Reason: Protocol Last Admin: 11/14/16 17:42 Dose: 10 mg Ciprofloxacin (Cipro) 250 mg PO Q12 [facility] PRN Reason: Protocol Stop: 11/21/16 22:01 Fenofibrate (Tricor) 145 mg PO DAILY [facility] PRN Reason: Protocol Last Admin: 11/14/16 10:27 Dose: 145 mg Hydrochlorothiazide (Hydrodiuril) 25 mg PO DAILY [facility] PRN Reason: Protocol Last Admin: 11/14/16 10:28 Dose: 25 mg Insulin Human Regular (Humulin R Low) 0 units SC ACHS [facility] PRN Reason: Protocol Last Admin: 11/14/16 17:30 Dose: 1 units Lisinopril (Zestril) 40 mg PO DAILY [facility] PRN Reason: Protocol Last Admin: 11/14/16 10:27 Dose: 40 mg Ondansetron HCl (Zofran Inj) 4 mg IVP Q6H PRN; Protocol PRN Reason: Nausea/Vomiting Oxycodone/Acetaminophen (Percocet 5/325 Mg Tab) 1 tab PO Q4H PRN PRN Reason: Pain, moderate (4-7) Stop: 11/15/16 16:38 Oxycodone/Acetaminophen (Percocet 5/325 Mg Tab) 2 tab PO Q4H PRN PRN Reason: Pain, severe (8-10) Stop: 11/15/16 16:38 Sodium Bicarbonate (Sodium Bicarbonate Tab) 650 mg PO BID [facility] PRN Reason: Protocol Last Admin: 11/14/16 17:42 Dose: 650 mg - Constitutional Appears: Well - Head Exam Head Exam: ATRAUMATIC, NORMAL INSPECTION, NORMOCEPHALIC - Eye Exam Eye Exam: EOMI, Normal appearance, PERRL Pupil Exam: NORMAL ACCOMODATION, PERRL - ENT Exam ENT Exam: Mucous Membranes Moist, Normal Exam - Neck Exam Neck Exam: Full ROM, Normal Inspection. absent: Lymphadenopathy - Respiratory Exam Respiratory Exam: Clear to Ausculation Bilateral, NORMAL BREATHING PATTERN - Cardiovascular Exam Cardiovascular Exam: REGULAR RHYTHM, +S1, +S2. absent: Murmur - GI/Abdominal Exam GI & Abdominal Exam: Soft, Normal Bowel Sounds. absent: Tenderness - Rectal Exam Rectal Exam: NORMAL INSPECTION - Exam Exam: Circumcision, NORMAL INSPECTION External exam: NORMAL EXTERNAL EXAM Speculum exam: NORMAL SPECULUM EXAM Bimanual exam: NORMAL BIMANUAL EXAM - Extremities Exam Extremities Exam: Full ROM, Normal Capillary Refill, Normal Inspection. absent : Joint Swelling, Pedal Edema - Back Exam Back Exam: NORMAL INSPECTION - Neurological Exam Neurological Exam: Alert, Awake, CN II-XII Intact, Normal Gait, Oriented x3 - Psychiatric Exam Psychiatric exam: Normal Affect, Normal Mood - Skin Skin Exam: Dry, Intact, Normal Color, Warm Assessment and Plan (1) Diabetic infection of left foot Status: Acute (2) Left leg cellulitis Status: Acute - Assessment and Plan (Free Text) Assessment: ENTEROBACTOR CLOAC OSTEOM Plan: START CIPRO PATH PENDING
[2016-11-15] MEDS: Insulin Reg-LOW-Coverage SC SCH ×3 (07:25→21:30)
--- NOTE | 2016-11-15 09:07 | CP.PCM.PN ---
Subjective - Date & Time of Evaluation Date of Evaluation: 11/15/16 Time of Evaluation: 09:04 - Subjective Subjective: 56 y/o male seen at bedside with attending Dr. Gage 3 days s/p left foot TMA. Patient denies any acute events overnight. Patient denies any pain in his foot. Patient has been non-weightbearing to his left lower extremity. Patient denies any n/f/v/d/c/sob. No other pedal complaints at this time. Objective - Vital Signs/Intake and Output Vital Signs (last 24 hours): Temp Pulse Resp BP Pulse Ox 98.3 F 96 H 18 117/66 98 11/15/16 06:00 11/15/16 06:00 11/15/16 06:00 11/15/16 06:00 11/15/16 06:00 Intake and Output: 11/15/16 11/15/16 06:59 18:59 Intake Total 680 420 Output Total 1200 Balance -520 420 - Medications Medications: Current Medications Acetaminophen (Tylenol 325mg Tab) 650 mg PO Q4H PRN PRN Reason: Pain, Mild (1-3) Amlodipine Besylate (Norvasc) 10 mg PO DAILY [facility] Last Admin: 11/14/16 10:28 Dose: 10 mg Atorvastatin Calcium (Lipitor) 10 mg PO DIN [facility] PRN Reason: Protocol Last Admin: 11/14/16 17:42 Dose: 10 mg Ciprofloxacin (Cipro) 250 mg PO Q12 [facility] PRN Reason: Protocol Stop: 11/21/16 22:01 Last Admin: 11/14/16 21:33 Dose: 250 mg Fenofibrate (Tricor) 145 mg PO DAILY [facility] PRN Reason: Protocol Last Admin: 11/14/16 10:27 Dose: 145 mg Hydrochlorothiazide (Hydrodiuril) 25 mg PO DAILY [facility] PRN Reason: Protocol Last Admin: 11/14/16 10:28 Dose: 25 mg Insulin Human Regular (Humulin R Low) 0 units SC ACHS [facility] PRN Reason: Protocol Last Admin: 11/15/16 07:25 Dose: 1 units Lisinopril (Zestril) 40 mg PO DAILY [facility] PRN Reason: Protocol Last Admin: 11/14/16 10:27 Dose: 40 mg Ondansetron HCl (Zofran Inj) 4 mg IVP Q6H PRN; Protocol PRN Reason: Nausea/Vomiting Oxycodone/Acetaminophen (Percocet 5/325 Mg Tab) 1 tab PO Q4H PRN PRN Reason: Pain, moderate (4-7) Stop: 11/15/16 16:38 Oxycodone/Acetaminophen (Percocet 5/325 Mg Tab) 2 tab PO Q4H PRN PRN Reason: Pain, severe (8-10) Stop: 11/15/16 16:38 Sodium Bicarbonate (Sodium Bicarbonate Tab) 650 mg PO BID [facility] PRN Reason: Protocol Last Admin: 11/14/16 17:42 Dose: 650 mg - Constitutional Appears: Well, Non-toxic, No Acute Distress - Extremities Exam Additional comments: Focused left lower extremity physical exam: Vasc: palpable pedal pulses, TG wnl, CFT < 3 sec to all digits, nonpitting edema to left LE Derm: surgical site intact, well coapted, sutures and ori are intact to the left distal stump site, fluctuance noted a plantar aspect of left TMA stump, 5cc of sanguinous drainage was expressed from distal surgical site. no purulence , no wound dehiscence, no malodor, no ascending cellulitis neuro: grossly diminished ortho: no pain on palpation to plantar left foot - Neurological Exam Neurological Exam: Alert, Awake, Oriented x3 - Psychiatric Exam Psychiatric exam: Normal Affect, Normal Mood Assessment and Plan - Assessment and Plan (Free Text) Assessment: 56 y/o male seen at bedside 3 days s/p left foot TMA Plan: patient evaluated and chart reviewed Discussed with attending Dr. Gage labs and vitals reviewed; afebrile Patient started on Cipro as per ID recommendation Removed two sutures at the distal plantar incision site extracted 5 cc of sanguinous fluid from surgical incision site using probe and gauze packed incision site with 1 inch iodoform packing applied betadine, adaptic, kerlix, OCTAVIANO to LLE continue nonweightbearing to both lower extremities except for bathroom priviledges podiatry will continue to follow while patient remains in house
--- NOTE | 2016-11-15 11:24 | CP.PCM.PN ---
Subjective - Date & Time of Evaluation Date of Evaluation: 11/15/16 Time of Evaluation: 07:00 - Subjective Subjective: DOING WELL Objective - Vital Signs/Intake and Output Vital Signs (last 24 hours): Temp Pulse Resp BP Pulse Ox 98.1 F 90 12 117/70 100 11/15/16 10:00 11/15/16 10:00 11/15/16 10:00 11/15/16 10:50 11/15/16 10:00 Intake and Output: 11/15/16 11/15/16 06:59 18:59 Intake Total 680 420 Output Total 1200 Balance -520 420 - Medications Medications: Current Medications Acetaminophen (Tylenol 325mg Tab) 650 mg PO Q4H PRN PRN Reason: Pain, Mild (1-3) Amlodipine Besylate (Norvasc) 10 mg PO DAILY [facility] Last Admin: 11/15/16 10:50 Dose: 10 mg Atorvastatin Calcium (Lipitor) 10 mg PO DIN [facility] PRN Reason: Protocol Last Admin: 11/14/16 17:42 Dose: 10 mg Ciprofloxacin (Cipro) 250 mg PO Q12 [facility] PRN Reason: Protocol Stop: 11/21/16 22:01 Last Admin: 11/15/16 10:50 Dose: 250 mg Fenofibrate (Tricor) 145 mg PO DAILY [facility] PRN Reason: Protocol Last Admin: 11/15/16 10:50 Dose: 145 mg Hydrochlorothiazide (Hydrodiuril) 25 mg PO DAILY [facility] PRN Reason: Protocol Last Admin: 11/15/16 10:50 Dose: 25 mg Insulin Human Regular (Humulin R Low) 0 units SC ACHS [facility] PRN Reason: Protocol Last Admin: 11/15/16 07:25 Dose: 1 units Lisinopril (Zestril) 40 mg PO DAILY [facility] PRN Reason: Protocol Last Admin: 11/15/16 10:50 Dose: 40 mg Ondansetron HCl (Zofran Inj) 4 mg IVP Q6H PRN; Protocol PRN Reason: Nausea/Vomiting Oxycodone/Acetaminophen (Percocet 5/325 Mg Tab) 1 tab PO Q4H PRN PRN Reason: Pain, moderate (4-7) Stop: 11/15/16 16:38 Oxycodone/Acetaminophen (Percocet 5/325 Mg Tab) 2 tab PO Q4H PRN PRN Reason: Pain, severe (8-10) Stop: 11/15/16 16:38 Sodium Bicarbonate (Sodium Bicarbonate Tab) 650 mg PO BID [facility] PRN Reason: Protocol Last Admin: 11/15/16 10:50 Dose: 650 mg - Constitutional Appears: Well - Head Exam Head Exam: ATRAUMATIC, NORMAL INSPECTION, NORMOCEPHALIC - Eye Exam Eye Exam: EOMI, Normal appearance, PERRL Pupil Exam: NORMAL ACCOMODATION, PERRL - ENT Exam ENT Exam: Mucous Membranes Moist, Normal Exam - Neck Exam Neck Exam: Full ROM, Normal Inspection. absent: Lymphadenopathy - Respiratory Exam Respiratory Exam: Clear to Ausculation Bilateral, NORMAL BREATHING PATTERN - Cardiovascular Exam Cardiovascular Exam: REGULAR RHYTHM, +S1, +S2. absent: Murmur - GI/Abdominal Exam GI & Abdominal Exam: Soft, Normal Bowel Sounds. absent: Tenderness - Rectal Exam Rectal Exam: NORMAL INSPECTION - Exam Exam: Circumcision, NORMAL INSPECTION External exam: NORMAL EXTERNAL EXAM Speculum exam: NORMAL SPECULUM EXAM Bimanual exam: NORMAL BIMANUAL EXAM - Extremities Exam Extremities Exam: Full ROM, Normal Capillary Refill, Normal Inspection. absent : Joint Swelling, Pedal Edema - Back Exam Back Exam: NORMAL INSPECTION - Neurological Exam Neurological Exam: Alert, Awake, CN II-XII Intact, Normal Gait, Oriented x3 - Psychiatric Exam Psychiatric exam: Normal Affect, Normal Mood - Skin Skin Exam: Dry, Intact, Normal Color, Warm Assessment and Plan (1) Diabetic infection of left foot Status: Acute (2) Left leg cellulitis Status: Acute - Assessment and Plan (Free Text) Plan: ON PO CIPRO AWAITING PATH
--- NOTE | 2016-11-15 18:19 | CP.PCM.PN ---
Subjective - Date & Time of Evaluation Date of Evaluation: 11/15/16 Time of Evaluation: 18:11 - Subjective Subjective: Pt with no complaints. Pain is controlled. Objective - Vital Signs/Intake and Output Vital Signs (last 24 hours): Temp Pulse Resp BP Pulse Ox 98.1 F 90 12 117/70 100 11/15/16 10:00 11/15/16 10:00 11/15/16 10:00 11/15/16 10:50 11/15/16 10:00 Intake and Output: 11/15/16 11/15/16 06:59 18:59 Intake Total 680 420 Output Total 1200 Balance -520 420 - Medications Medications: Current Medications Acetaminophen (Tylenol 325mg Tab) 650 mg PO Q4H PRN PRN Reason: Pain, Mild (1-3) Amlodipine Besylate (Norvasc) 10 mg PO DAILY [facility] Last Admin: 11/15/16 10:50 Dose: 10 mg Atorvastatin Calcium (Lipitor) 10 mg PO DIN [facility] PRN Reason: Protocol Last Admin: 11/15/16 17:47 Dose: 10 mg Ciprofloxacin (Cipro) 250 mg PO Q12 [facility] PRN Reason: Protocol Stop: 11/21/16 22:01 Last Admin: 11/15/16 10:50 Dose: 250 mg Fenofibrate (Tricor) 145 mg PO DAILY [facility] PRN Reason: Protocol Last Admin: 11/15/16 10:50 Dose: 145 mg Hydrochlorothiazide (Hydrodiuril) 25 mg PO DAILY [facility] PRN Reason: Protocol Last Admin: 11/15/16 10:50 Dose: 25 mg Insulin Human Regular (Humulin R Low) 0 units SC ACHS [facility] PRN Reason: Protocol Last Admin: 11/15/16 12:21 Dose: 3 units Lisinopril (Zestril) 40 mg PO DAILY [facility] PRN Reason: Protocol Last Admin: 11/15/16 10:50 Dose: 40 mg Ondansetron HCl (Zofran Inj) 4 mg IVP Q6H PRN; Protocol PRN Reason: Nausea/Vomiting Sodium Bicarbonate (Sodium Bicarbonate Tab) 650 mg PO BID [facility] PRN Reason: Protocol Last Admin: 11/15/16 17:47 Dose: 650 mg - Constitutional Appears: Well - Head Exam Head Exam: NORMAL INSPECTION - Eye Exam Eye Exam: Normal appearance - ENT Exam ENT Exam: Mucous Membranes Moist, Normal Exam - Neck Exam Neck Exam: Full ROM, Normal Inspection. absent: Lymphadenopathy - Respiratory Exam Respiratory Exam: Clear to Ausculation Bilateral, NORMAL BREATHING PATTERN. absent: Rales, Rhonchi, Wheezes - Cardiovascular Exam Cardiovascular Exam: REGULAR RHYTHM, +S1, +S2. absent: Murmur - GI/Abdominal Exam GI & Abdominal Exam: Soft, Normal Bowel Sounds. absent: Rigid, Tenderness Assessment and Plan - Assessment and Plan (Free Text) Assessment: 1. Left second toe osteomyelitis. 2. Chronic kidney disease, stage III. 3. Iron deficiency anemia. 4. Diabetes type 2. 5. Diabetic neuropathy. . Plan: The patient is currently comfortable. L TMA. Pain is controlled. He is on hydrochlorothiazide for hypertension. The patient is on Lipitor for dyslipidemia. He is on sodium bicarb. He is on lisinopril for hypertension. He is on a carbohydrate-consistent diet
[2016-11-16] MEDS: Insulin Reg-LOW-Coverage SC SCH ×4 (06:47→22:35)
--- NOTE | 2016-11-16 10:06 | CP.PCM.PN ---
Subjective - Date & Time of Evaluation Date of Evaluation: 11/16/16 Time of Evaluation: 09:05 - Subjective Subjective: DOING WELL Objective - Vital Signs/Intake and Output Vital Signs (last 24 hours): Temp Pulse Resp BP Pulse Ox 98 F 93 H 18 104/64 99 11/16/16 06:00 11/16/16 06:00 11/16/16 06:00 11/16/16 09:58 11/16/16 06:00 - Medications Medications: Current Medications Acetaminophen (Tylenol 325mg Tab) 650 mg PO Q4H PRN PRN Reason: Pain, Mild (1-3) Amlodipine Besylate (Norvasc) 10 mg PO DAILY [facility] Last Admin: 11/16/16 09:58 Dose: 10 mg Atorvastatin Calcium (Lipitor) 10 mg PO DIN [facility] PRN Reason: Protocol Last Admin: 11/15/16 17:47 Dose: 10 mg Ciprofloxacin (Cipro) 250 mg PO Q12 [facility] PRN Reason: Protocol Stop: 11/21/16 22:01 Last Admin: 11/16/16 09:57 Dose: 250 mg Fenofibrate (Tricor) 145 mg PO DAILY [facility] PRN Reason: Protocol Last Admin: 11/16/16 09:59 Dose: 145 mg Hydrochlorothiazide (Hydrodiuril) 25 mg PO DAILY [facility] PRN Reason: Protocol Last Admin: 11/16/16 09:57 Dose: 25 mg Insulin Human Regular (Humulin R Low) 0 units SC ACHS [facility] PRN Reason: Protocol Last Admin: 11/16/16 06:47 Dose: 1 units Lisinopril (Zestril) 40 mg PO DAILY [facility] PRN Reason: Protocol Last Admin: 11/16/16 09:59 Dose: 40 mg Ondansetron HCl (Zofran Inj) 4 mg IVP Q6H PRN; Protocol PRN Reason: Nausea/Vomiting Sodium Bicarbonate (Sodium Bicarbonate Tab) 650 mg PO BID [facility] PRN Reason: Protocol Last Admin: 11/16/16 09:58 Dose: 650 mg - Constitutional Appears: Well - Head Exam Head Exam: ATRAUMATIC, NORMAL INSPECTION, NORMOCEPHALIC - Eye Exam Eye Exam: EOMI, Normal appearance, PERRL Pupil Exam: NORMAL ACCOMODATION, PERRL - ENT Exam ENT Exam: Mucous Membranes Moist, Normal Exam - Neck Exam Neck Exam: Full ROM, Normal Inspection. absent: Lymphadenopathy - Respiratory Exam Respiratory Exam: Clear to Ausculation Bilateral, NORMAL BREATHING PATTERN - Cardiovascular Exam Cardiovascular Exam: REGULAR RHYTHM, +S1, +S2. absent: Murmur - GI/Abdominal Exam GI & Abdominal Exam: Soft, Normal Bowel Sounds. absent: Tenderness - Rectal Exam Rectal Exam: NORMAL INSPECTION - Exam Exam: Circumcision, NORMAL INSPECTION External exam: NORMAL EXTERNAL EXAM Speculum exam: NORMAL SPECULUM EXAM Bimanual exam: NORMAL BIMANUAL EXAM - Extremities Exam Extremities Exam: Full ROM, Normal Capillary Refill, Normal Inspection. absent : Joint Swelling, Pedal Edema - Back Exam Back Exam: NORMAL INSPECTION - Neurological Exam Neurological Exam: Alert, Awake, CN II-XII Intact, Normal Gait, Oriented x3 - Psychiatric Exam Psychiatric exam: Normal Affect, Normal Mood - Skin Skin Exam: Dry, Intact, Normal Color, Warm Assessment and Plan (1) Diabetic infection of left foot Status: Acute (2) Left leg cellulitis Status: Acute - Assessment and Plan (Free Text) Plan: ON CIPRO AWAITING FOR PATH
--- NOTE | 2016-11-16 11:37 | CP.PCM.PN ---
<Lauren Bassett - Last Filed: 11/16/16 11:39> Subjective - Date & Time of Evaluation Date of Evaluation: 11/16/16 Time of Evaluation: 11:36 - Subjective Subjective: 56 y/o male seen at bedside with attending Dr. Salazar 4 days s/p left foot TMA. Patient denies any acute events overnight. Patient denies any pain in his foot. Patient has been non-weightbearing to his left lower extremity. Patient denies any n/f/v/d/c/sob. No other pedal complaints at this time. Objective - Vital Signs/Intake and Output Vital Signs (last 24 hours): Temp Pulse Resp BP Pulse Ox 98 F 93 H 18 104/64 99 11/16/16 06:00 11/16/16 06:00 11/16/16 06:00 11/16/16 09:58 11/16/16 06:00 - Medications Medications: Current Medications Acetaminophen (Tylenol 325mg Tab) 650 mg PO Q4H PRN PRN Reason: Pain, Mild (1-3) Amlodipine Besylate (Norvasc) 10 mg PO DAILY [facility] Last Admin: 11/16/16 09:58 Dose: 10 mg Atorvastatin Calcium (Lipitor) 10 mg PO DIN [facility] PRN Reason: Protocol Last Admin: 11/15/16 17:47 Dose: 10 mg Ciprofloxacin (Cipro) 250 mg PO Q12 [facility] PRN Reason: Protocol Stop: 11/21/16 22:01 Last Admin: 11/16/16 09:57 Dose: 250 mg Fenofibrate (Tricor) 145 mg PO DAILY [facility] PRN Reason: Protocol Last Admin: 11/16/16 09:59 Dose: 145 mg Hydrochlorothiazide (Hydrodiuril) 25 mg PO DAILY [facility] PRN Reason: Protocol Last Admin: 11/16/16 09:57 Dose: 25 mg Insulin Human Regular (Humulin R Low) 0 units SC ACHS [facility] PRN Reason: Protocol Last Admin: 11/16/16 06:47 Dose: 1 units Lisinopril (Zestril) 40 mg PO DAILY [facility] PRN Reason: Protocol Last Admin: 11/16/16 09:59 Dose: 40 mg Ondansetron HCl (Zofran Inj) 4 mg IVP Q6H PRN; Protocol PRN Reason: Nausea/Vomiting Sodium Bicarbonate (Sodium Bicarbonate Tab) 650 mg PO BID [facility] PRN Reason: Protocol Last Admin: 11/16/16 09:58 Dose: 650 mg - Constitutional Appears: Well, Non-toxic, No Acute Distress - Extremities Exam Additional comments: LLE focused exam: Vasc: palpable pedal pulses, TG warm to cool, CFT < 3 sec to all digits, nonpitting edema to left LE Derm: surgical site intact, well coapted, sutures and ori are intact to the left distal stump site, fluctuance noted a plantar aspect of left TMA stump, expressed about 3cc of sanguineous drainage noted, no purulence, no wound dehiscence, no malodor, no ascending cellulitis neuro: grossly diminished ortho: no pain on palpation to plantar left foot - Neurological Exam Neurological Exam: Alert, Awake, Oriented x3 - Psychiatric Exam Psychiatric exam: Normal Affect, Normal Mood Assessment and Plan - Assessment and Plan (Free Text) Assessment: 56 y/o male seen at bedside 4 days s/p left foot TMA Plan: patient evaluated and chart reviewed with attending Dr. Salazar labs and vitals reviewed; afebrile Patient started on Cipro as per ID recommendation extracted 3 cc of sanguinous fluid from surgical incision site using probe and gauze packed incision site with 1/4 inch iodoform packing applied betadine, adaptic, kerlix, OCTAVIANO to LLE continue nonweightbearing to both lower extremities except for bathroom priviledges podiatry will continue to follow while patient remains in house <Jeb Salazar - Last Filed: 11/16/16 14:35> Objective - Vital Signs/Intake and Output Vital Signs (last 24 hours): Temp Pulse Resp BP Pulse Ox 97.3 F L 90 18 126/75 98 11/16/16 10:00 11/16/16 10:00 11/16/16 10:00 11/16/16 10:00 11/16/16 10:00 - Medications Medications: Current Medications Acetaminophen (Tylenol 325mg Tab) 650 mg PO Q4H PRN PRN Reason: Pain, Mild (1-3) Amlodipine Besylate (Norvasc) 10 mg PO DAILY [facility] Last Admin: 11/16/16 09:58 Dose: 10 mg Atorvastatin Calcium (Lipitor) 10 mg PO DIN [facility] PRN Reason: Protocol Last Admin: 06/29/17 17:47 Dose: 10 mg Ciprofloxacin (Cipro) 250 mg PO Q12 [facility] PRN Reason: Protocol Stop: 11/21/16 22:01 Last Admin: 11/16/16 09:57 Dose: 250 mg Fenofibrate (Tricor) 145 mg PO DAILY [facility] PRN Reason: Protocol Last Admin: 11/16/16 09:59 Dose: 145 mg Hydrochlorothiazide (Hydrodiuril) 25 mg PO DAILY [facility] PRN Reason: Protocol Last Admin: 11/16/16 09:57 Dose: 25 mg Insulin Human Regular (Humulin R Low) 0 units SC ACHS [facility] PRN Reason: Protocol Last Admin: 11/16/16 13:05 Dose: 2 units Lisinopril (Zestril) 40 mg PO DAILY [facility] PRN Reason: Protocol Last Admin: 11/16/16 09:59 Dose: 40 mg Ondansetron HCl (Zofran Inj) 4 mg IVP Q6H PRN; Protocol PRN Reason: Nausea/Vomiting Sodium Bicarbonate (Sodium Bicarbonate Tab) 650 mg PO BID [facility] PRN Reason: Protocol Last Admin: 11/16/16 09:58 Dose: 650 mg Attending/Attestation - Attestation I have personally seen and examined this patient.: Yes I have fully participated in the care of the patient.: Yes I have reviewed all pertinent clinical information, including history, physical exam and plan: Yes
[2016-11-17] MEDS: Insulin Reg-LOW-Coverage SC SCH ×3 (06:42→21:54)
--- NOTE | 2016-11-17 08:49 | CP.PCM.PN ---
<Lauren Bassett - Last Filed: 11/17/16 08:46> Subjective - Date & Time of Evaluation Date of Evaluation: 11/17/16 Time of Evaluation: 08:35 - Subjective Subjective: 56 y/o male seen at bedside with attending Dr. Salazar 5 days s/p left foot TMA. Patient denies any acute events overnight. Patient denies any pain in his foot. Patient has been non-weightbearing to his left lower extremity. Patient denies any n/f/v/d/c/sob. No other pedal complaints at this time Objective - Vital Signs/Intake and Output Vital Signs (last 24 hours): Temp Pulse Resp BP Pulse Ox 98.3 F 85 18 103/58 L 100 11/17/16 05:45 11/17/16 05:45 11/17/16 05:45 11/17/16 05:45 11/17/16 05:45 Intake and Output: 11/17/16 11/17/16 06:59 18:59 Output Total 1250 Balance -1250 - Medications Medications: Current Medications Acetaminophen (Tylenol 325mg Tab) 650 mg PO Q4H PRN PRN Reason: Pain, Mild (1-3) Amlodipine Besylate (Norvasc) 10 mg PO DAILY [facility] Last Admin: 11/16/16 09:58 Dose: 10 mg Atorvastatin Calcium (Lipitor) 10 mg PO DIN [facility] PRN Reason: Protocol Last Admin: 11/16/16 17:21 Dose: 10 mg Ciprofloxacin (Cipro) 250 mg PO Q12 [facility] PRN Reason: Protocol Stop: 11/21/16 22:01 Last Admin: 11/16/16 21:22 Dose: 250 mg Fenofibrate (Tricor) 145 mg PO DAILY [facility] PRN Reason: Protocol Last Admin: 11/16/16 09:59 Dose: 145 mg Hydrochlorothiazide (Hydrodiuril) 25 mg PO DAILY [facility] PRN Reason: Protocol Last Admin: 11/16/16 09:57 Dose: 25 mg Insulin Human Regular (Humulin R Low) 0 units SC ACHS [facility] PRN Reason: Protocol Last Admin: 11/17/16 06:42 Dose: 2 units Lisinopril (Zestril) 40 mg PO DAILY [facility] PRN Reason: Protocol Last Admin: 11/16/16 09:59 Dose: 40 mg Ondansetron HCl (Zofran Inj) 4 mg IVP Q6H PRN; Protocol PRN Reason: Nausea/Vomiting Sodium Bicarbonate (Sodium Bicarbonate Tab) 650 mg PO BID [facility] PRN Reason: Protocol Last Admin: 11/16/16 17:22 Dose: 650 mg - Constitutional Appears: Well, Non-toxic, No Acute Distress - Extremities Exam Additional comments: LLE focused exam: Vasc: palpable pedal pulses, TG warm to cool, CFT < 3 sec to all digits, nonpitting edema to left LE Derm: surgical site intact, skin well coapted, sutures and ori are intact to the left distal stump site, fluctuance noted a plantar aspect of left TMA stump, expressed about 3cc of sanguineous drainage noted, no purulence, no wound dehiscence, no malodor, no ascending cellulitis neuro: grossly sensation diminished ortho: no pain on palpation to plantar left foot - Neurological Exam Neurological Exam: Alert, Awake, Oriented x3 - Psychiatric Exam Psychiatric exam: Normal Affect, Normal Mood Assessment and Plan - Assessment and Plan (Free Text) Assessment: 56 y/o male seen at bedside 5 days s/p left foot TMA Plan: patient evaluated and chart reviewed with attending Dr. Salazar labs and vitals reviewed; afebrile Patient started on Cipro as per ID recommendation extracted 3 cc of sanguinous fluid from surgical incision site using probe and gauze packed incision site with 1/4 inch iodoform packing applied betadine, adaptic, kerlix, OCTAVIANO to LLE continue nonweightbearing to both lower extremities except for bathroom priviledges patient is stable from podiatry standpoint; will be discharge with PO antibiotic podiatry will continue to follow while patient remains in house <Jeb Salazar - Last Filed: 11/19/16 08:16> Objective - Vital Signs/Intake and Output Vital Signs (last 24 hours): Temp Pulse Resp BP Pulse Ox 98.0 F 91 H 20 117/71 96 11/19/16 06:00 11/19/16 06:00 11/19/16 06:00 11/19/16 06:00 11/19/16 06:00 - Medications Medications: Current Medications Acetaminophen (Tylenol 325mg Tab) 650 mg PO Q4H PRN PRN Reason: Pain, Mild (1-3) Amlodipine Besylate (Norvasc) 10 mg PO DAILY [facility] Last Admin: 11/18/16 09:39 Dose: 10 mg Atorvastatin Calcium (Lipitor) 10 mg PO DIN [facility] PRN Reason: Protocol Last Admin: 11/18/16 17:27 Dose: 10 mg Ciprofloxacin (Cipro) 250 mg PO Q12 [facility] PRN Reason: Protocol Stop: 11/21/16 22:01 Last Admin: 11/18/16 22:04 Dose: 250 mg Fenofibrate (Tricor) 145 mg PO DAILY [facility] PRN Reason: Protocol Last Admin: 11/18/16 09:40 Dose: 145 mg Hydrochlorothiazide (Hydrodiuril) 25 mg PO DAILY [facility] PRN Reason: Protocol Last Admin: 11/18/16 09:39 Dose: 25 mg Insulin Human Regular (Humulin R Low) 0 units SC ACHS [facility] PRN Reason: Protocol Last Admin: 11/19/16 06:54 Dose: 1 units Lisinopril (Zestril) 40 mg PO DAILY [facility] PRN Reason: Protocol Last Admin: 11/18/16 09:41 Dose: 40 mg Ondansetron HCl (Zofran Inj) 4 mg IVP Q6H PRN; Protocol PRN Reason: Nausea/Vomiting Sodium Bicarbonate (Sodium Bicarbonate Tab) 650 mg PO BID [facility] PRN Reason: Protocol Last Admin: 11/18/16 17:27 Dose: 650 mg Attending/Attestation - Attestation I have personally seen and examined this patient.: Yes I have fully participated in the care of the patient.: Yes I have reviewed all pertinent clinical information, including history, physical exam and plan: Yes
--- NOTE | 2016-11-17 11:05 | CP.PCM.PN ---
Subjective - Date & Time of Evaluation Date of Evaluation: 11/17/16 Time of Evaluation: 08:50 - Subjective Subjective: DOING WELL Objective - Vital Signs/Intake and Output Vital Signs (last 24 hours): Temp Pulse Resp BP Pulse Ox 98.3 F 85 18 103/58 L 100 11/17/16 05:45 11/17/16 05:45 11/17/16 05:45 11/17/16 09:38 11/17/16 05:45 Intake and Output: 11/17/16 11/17/16 06:59 18:59 Output Total 1250 Balance -1250 - Medications Medications: Current Medications Acetaminophen (Tylenol 325mg Tab) 650 mg PO Q4H PRN PRN Reason: Pain, Mild (1-3) Amlodipine Besylate (Norvasc) 10 mg PO DAILY [facility] Last Admin: 11/17/16 09:38 Dose: 10 mg Atorvastatin Calcium (Lipitor) 10 mg PO DIN [facility] PRN Reason: Protocol Last Admin: 11/16/16 17:21 Dose: 10 mg Ciprofloxacin (Cipro) 250 mg PO Q12 [facility] PRN Reason: Protocol Stop: 11/21/16 22:01 Last Admin: 11/17/16 09:37 Dose: 250 mg Fenofibrate (Tricor) 145 mg PO DAILY [facility] PRN Reason: Protocol Last Admin: 11/17/16 09:39 Dose: 145 mg Hydrochlorothiazide (Hydrodiuril) 25 mg PO DAILY [facility] PRN Reason: Protocol Last Admin: 11/17/16 09:38 Dose: 25 mg Insulin Human Regular (Humulin R Low) 0 units SC ACHS [facility] PRN Reason: Protocol Last Admin: 11/17/16 06:42 Dose: 2 units Lisinopril (Zestril) 40 mg PO DAILY [facility] PRN Reason: Protocol Last Admin: 11/17/16 09:40 Dose: Not Given Ondansetron HCl (Zofran Inj) 4 mg IVP Q6H PRN; Protocol PRN Reason: Nausea/Vomiting Sodium Bicarbonate (Sodium Bicarbonate Tab) 650 mg PO BID [facility] PRN Reason: Protocol Last Admin: 11/17/16 09:39 Dose: 650 mg - Constitutional Appears: Well - Head Exam Head Exam: ATRAUMATIC, NORMAL INSPECTION, NORMOCEPHALIC - Eye Exam Eye Exam: EOMI, Normal appearance, PERRL Pupil Exam: NORMAL ACCOMODATION, PERRL - ENT Exam ENT Exam: Mucous Membranes Moist, Normal Exam - Neck Exam Neck Exam: Full ROM, Normal Inspection. absent: Lymphadenopathy - Respiratory Exam Respiratory Exam: Clear to Ausculation Bilateral, NORMAL BREATHING PATTERN - Cardiovascular Exam Cardiovascular Exam: REGULAR RHYTHM, +S1, +S2. absent: Murmur - GI/Abdominal Exam GI & Abdominal Exam: Soft, Normal Bowel Sounds. absent: Tenderness - Rectal Exam Rectal Exam: NORMAL INSPECTION - Exam Exam: Circumcision, NORMAL INSPECTION External exam: NORMAL EXTERNAL EXAM Speculum exam: NORMAL SPECULUM EXAM Bimanual exam: NORMAL BIMANUAL EXAM - Extremities Exam Extremities Exam: Full ROM, Normal Capillary Refill, Normal Inspection. absent : Joint Swelling, Pedal Edema - Back Exam Back Exam: NORMAL INSPECTION - Neurological Exam Neurological Exam: Alert, Awake, CN II-XII Intact, Normal Gait, Oriented x3 - Psychiatric Exam Psychiatric exam: Normal Affect, Normal Mood - Skin Skin Exam: Dry, Intact, Normal Color, Warm Assessment and Plan (1) Diabetic infection of left foot Status: Acute (2) Left leg cellulitis Status: Acute (3) Osteomyelitis Status: Acute - Assessment and Plan (Free Text) Plan: PATH NEG FOR [facility] C[facility] PO DAY 4 OF 7 DAYS
[2016-11-18] MEDS: Insulin Reg-LOW-Coverage SC SCH ×4 (06:45→22:04)
--- NOTE | 2016-11-18 10:51 | CP.PCM.PN ---
Subjective - Date & Time of Evaluation Date of Evaluation: 11/18/16 Time of Evaluation: 08:00 - Subjective Subjective: doing well Objective - Vital Signs/Intake and Output Vital Signs (last 24 hours): Temp Pulse Resp BP Pulse Ox 98.3 F 88 20 109/70 100 11/18/16 06:00 11/18/16 06:00 11/18/16 06:00 11/18/16 09:39 11/17/16 05:45 Intake and Output: 11/18/16 11/18/16 06:59 18:59 Intake Total 240 420 Output Total 550 Balance -310 420 - Medications Medications: Current Medications Acetaminophen (Tylenol 325mg Tab) 650 mg PO Q4H PRN PRN Reason: Pain, Mild (1-3) Amlodipine Besylate (Norvasc) 10 mg PO DAILY [facility] Last Admin: 11/18/16 09:39 Dose: 10 mg Atorvastatin Calcium (Lipitor) 10 mg PO DIN [facility] PRN Reason: Protocol Last Admin: 11/16/16 17:21 Dose: 10 mg Ciprofloxacin (Cipro) 250 mg PO Q12 [facility] PRN Reason: Protocol Stop: 11/21/16 22:01 Last Admin: 11/18/16 09:38 Dose: 250 mg Fenofibrate (Tricor) 145 mg PO DAILY [facility] PRN Reason: Protocol Last Admin: 11/18/16 09:40 Dose: 145 mg Hydrochlorothiazide (Hydrodiuril) 25 mg PO DAILY [facility] PRN Reason: Protocol Last Admin: 11/18/16 09:39 Dose: 25 mg Insulin Human Regular (Humulin R Low) 0 units SC ACHS [facility] PRN Reason: Protocol Last Admin: 11/17/16 21:54 Dose: Not Given Lisinopril (Zestril) 40 mg PO DAILY [facility] PRN Reason: Protocol Last Admin: 11/18/16 09:41 Dose: 40 mg Ondansetron HCl (Zofran Inj) 4 mg IVP Q6H PRN; Protocol PRN Reason: Nausea/Vomiting Sodium Bicarbonate (Sodium Bicarbonate Tab) 650 mg PO BID [facility] PRN Reason: Protocol Last Admin: 11/18/16 09:40 Dose: 650 mg - Constitutional Appears: Well - Head Exam Head Exam: ATRAUMATIC, NORMAL INSPECTION, NORMOCEPHALIC - Eye Exam Eye Exam: EOMI, Normal appearance, PERRL Pupil Exam: NORMAL ACCOMODATION, PERRL - ENT Exam ENT Exam: Mucous Membranes Moist, Normal Exam - Neck Exam Neck Exam: Full ROM, Normal Inspection. absent: Lymphadenopathy - Respiratory Exam Respiratory Exam: Clear to Ausculation Bilateral, NORMAL BREATHING PATTERN - Cardiovascular Exam Cardiovascular Exam: REGULAR RHYTHM, +S1, +S2. absent: Murmur - GI/Abdominal Exam GI & Abdominal Exam: Soft, Normal Bowel Sounds. absent: Tenderness - Rectal Exam Rectal Exam: NORMAL INSPECTION - Exam Exam: Circumcision, NORMAL INSPECTION External exam: NORMAL EXTERNAL EXAM Speculum exam: NORMAL SPECULUM EXAM Bimanual exam: NORMAL BIMANUAL EXAM - Extremities Exam Extremities Exam: Full ROM, Normal Capillary Refill, Normal Inspection. absent : Joint Swelling, Pedal Edema - Back Exam Back Exam: NORMAL INSPECTION - Neurological Exam Neurological Exam: Alert, Awake, CN II-XII Intact, Normal Gait, Oriented x3 - Psychiatric Exam Psychiatric exam: Normal Affect, Normal Mood - Skin Skin Exam: Dry, Intact, Normal Color, Warm Assessment and Plan (1) Diabetic infection of left foot Status: Acute (2) Left leg cellulitis Status: Acute (3) Osteomyelitis Status: Acute - Assessment and Plan (Free Text) Plan: po cipro
[2016-11-19] MEDS: Insulin Reg-LOW-Coverage SC SCH ×3 (06:54→16:35)
--- NOTE | 2016-11-19 09:06 | CP.PCM.PN ---
<AnYolis - Last Filed: 11/19/16 09:02> Subjective - Date & Time of Evaluation Date of Evaluation: 11/19/16 Time of Evaluation: 09:03 - Subjective Subjective: 56 y/o male seen at bedside with attending Dr. Salazar 7 days s/p left foot TMA. Patient denies any acute events overnight. Patient denies any pain in his foot. Patient has been non-weight bearing to his left lower extremity. Patient denies any n/f/v/d/c/sob. No other pedal complaints at this time Objective - Vital Signs/Intake and Output Vital Signs (last 24 hours): Temp Pulse Resp BP Pulse Ox 98.0 F 91 H 20 117/71 96 11/19/16 06:00 11/19/16 06:00 11/19/16 06:00 11/19/16 06:00 11/19/16 06:00 - Medications Medications: Current Medications Acetaminophen (Tylenol 325mg Tab) 650 mg PO Q4H PRN PRN Reason: Pain, Mild (1-3) Amlodipine Besylate (Norvasc) 10 mg PO DAILY [facility] Last Admin: 11/18/16 09:39 Dose: 10 mg Atorvastatin Calcium (Lipitor) 10 mg PO DIN [facility] PRN Reason: Protocol Last Admin: 11/18/16 17:27 Dose: 10 mg Ciprofloxacin (Cipro) 250 mg PO Q12 [facility] PRN Reason: Protocol Stop: 11/21/16 22:01 Last Admin: 11/18/16 22:04 Dose: 250 mg Fenofibrate (Tricor) 145 mg PO DAILY [facility] PRN Reason: Protocol Last Admin: 11/18/16 09:40 Dose: 145 mg Hydrochlorothiazide (Hydrodiuril) 25 mg PO DAILY [facility] PRN Reason: Protocol Last Admin: 11/18/16 09:39 Dose: 25 mg Insulin Human Regular (Humulin R Low) 0 units SC ACHS [facility] PRN Reason: Protocol Last Admin: 11/19/16 06:54 Dose: 1 units Lisinopril (Zestril) 40 mg PO DAILY [facility] PRN Reason: Protocol Last Admin: 11/18/16 09:41 Dose: 40 mg Ondansetron HCl (Zofran Inj) 4 mg IVP Q6H PRN; Protocol PRN Reason: Nausea/Vomiting Sodium Bicarbonate (Sodium Bicarbonate Tab) 650 mg PO BID [facility] PRN Reason: Protocol Last Admin: 11/18/16 17:27 Dose: 650 mg - Constitutional Appears: Well, Non-toxic - Extremities Exam Additional comments: Left lower extremity focused exam: Vasc: Pedal pulses palpable, TG warm to cool, CFT < 3 sec to all digits, nonpitting edema to left LE Derm: surgical site intact, skin well coapted, sutures and ori are intact to the left distal stump site, fluctuance noted a plantar aspect of left TMA stump, expressed about 0.5 cc of sanguineous drainage noted, no purulence, no wound dehiscence, no malodor, no ascending cellulitis neuro: grossly sensation diminished ortho: no pain on palpation to plantar left foot Assessment and Plan - Assessment and Plan (Free Text) Assessment: 56 y/o male seen at bedside 7 days s/p left foot TMA Plan: patient examined and evaluated with attending Dr. Salazar labs and vitals reviewed; afebrile Patient started on Cipro as per ID recommendation left foot dressed with betadine, adaptic, kerlix, tubigrip and OCTAVIANO pt to WBAT to heel on LLE patient is stable from podiatry standpoint; will be discharge with PO antibiotic podiatry will continue to follow while patient remains in house <Jeb Salazar - Last Filed: 11/20/16 08:09> Objective - Vital Signs/Intake and Output Vital Signs (last 24 hours): Temp Pulse Resp BP Pulse Ox 98.6 F 85 12 121/72 100 11/19/16 10:44 11/19/16 10:44 11/19/16 10:44 11/19/16 10:50 11/19/16 10:44 Attending/Attestation - Attestation I have personally seen and examined this patient.: Yes I have fully participated in the care of the patient.: Yes I have reviewed all pertinent clinical information, including history, physical exam and plan: Yes
[2016-11-19 10:45] VITALS: BP 121/72; PULSE 85; RESP 12; TEMP 98.6; O2SAT 100
--- NOTE | 2016-11-19 10:54 | CP.PCM.PN ---
Subjective - Date & Time of Evaluation Date of Evaluation: 11/19/16 Time of Evaluation: 09:00 - Subjective Subjective: DOING WELL Objective - Vital Signs/Intake and Output Vital Signs (last 24 hours): Temp Pulse Resp BP Pulse Ox 98.6 F 85 12 121/72 100 11/19/16 10:44 11/19/16 10:44 11/19/16 10:44 11/19/16 10:44 11/19/16 10:44 - Medications Medications: Current Medications Acetaminophen (Tylenol 325mg Tab) 650 mg PO Q4H PRN PRN Reason: Pain, Mild (1-3) Amlodipine Besylate (Norvasc) 10 mg PO DAILY [facility] Last Admin: 11/18/16 09:39 Dose: 10 mg Atorvastatin Calcium (Lipitor) 10 mg PO DIN [facility] PRN Reason: Protocol Last Admin: 11/18/16 17:27 Dose: 10 mg Ciprofloxacin (Cipro) 250 mg PO Q12 [facility] PRN Reason: Protocol Stop: 11/21/16 22:01 Last Admin: 11/18/16 22:04 Dose: 250 mg Fenofibrate (Tricor) 145 mg PO DAILY [facility] PRN Reason: Protocol Last Admin: 11/18/16 09:40 Dose: 145 mg Hydrochlorothiazide (Hydrodiuril) 25 mg PO DAILY [facility] PRN Reason: Protocol Last Admin: 11/18/16 09:39 Dose: 25 mg Insulin Human Regular (Humulin R Low) 0 units SC ACHS [facility] PRN Reason: Protocol Last Admin: 11/19/16 06:54 Dose: 1 units Lisinopril (Zestril) 40 mg PO DAILY [facility] PRN Reason: Protocol Last Admin: 11/18/16 09:41 Dose: 40 mg Sodium Bicarbonate (Sodium Bicarbonate Tab) 650 mg PO BID [facility] PRN Reason: Protocol Last Admin: 11/18/16 17:27 Dose: 650 mg - Constitutional Appears: Well - Head Exam Head Exam: ATRAUMATIC, NORMAL INSPECTION, NORMOCEPHALIC - Eye Exam Eye Exam: EOMI, Normal appearance, PERRL Pupil Exam: NORMAL ACCOMODATION, PERRL - ENT Exam ENT Exam: Mucous Membranes Moist, Normal Exam - Neck Exam Neck Exam: Full ROM, Normal Inspection. absent: Lymphadenopathy - Respiratory Exam Respiratory Exam: Clear to Ausculation Bilateral, NORMAL BREATHING PATTERN - Cardiovascular Exam Cardiovascular Exam: REGULAR RHYTHM, +S1, +S2. absent: Murmur - GI/Abdominal Exam GI & Abdominal Exam: Soft, Normal Bowel Sounds. absent: Tenderness - Rectal Exam Rectal Exam: NORMAL INSPECTION - Exam Exam: Circumcision, NORMAL INSPECTION External exam: NORMAL EXTERNAL EXAM Speculum exam: NORMAL SPECULUM EXAM Bimanual exam: NORMAL BIMANUAL EXAM - Extremities Exam Extremities Exam: Full ROM, Normal Capillary Refill, Normal Inspection. absent : Joint Swelling, Pedal Edema - Back Exam Back Exam: NORMAL INSPECTION - Neurological Exam Neurological Exam: Alert, Awake, CN II-XII Intact, Normal Gait, Oriented x3 - Psychiatric Exam Psychiatric exam: Normal Affect, Normal Mood - Skin Skin Exam: Dry, Intact, Normal Color, Warm Assessment and Plan (1) Diabetic infection of left foot Status: Acute (2) Left leg cellulitis Status: Acute (3) Osteomyelitis Status: Acute - Assessment and Plan (Free Text) Plan: PO CIPRO DAY 6 OF 7
== END 2016-11-19 10:48 | DRG 638 ==
LOC: TRCU 18:21
PROVIDERS: ADMIT Internal Medicine Nephrology; ATTEND Internal Medicine Nephrology
PROC: F07Z9ZZ Gait Training/Functional Ambulation Treatment (ICD-10-PCS; principal; 2016-11-10)
PROC: F07M6ZZ Therapeutic Exercise Treatment of Musculoskeletal System - Whole Body (ICD-10-PCS; 2016-11-10)
PROC: F08Z1ZZ Dressing Techniques Treatment (ICD-10-PCS; 2016-11-10)
PROC: F08Z2ZZ Grooming/Personal Hygiene Treatment (ICD-10-PCS; 2016-11-10)
DX: E11.621 Type 2 diabetes mellitus with foot ulcer (principal); L97.529 Non-pressure chronic ulcer of other part of left foot with unspecified severity; L03.116 Cellulitis of left lower limb; E11.22 Type 2 diabetes mellitus with diabetic chronic kidney disease; E11.40 Type 2 diabetes mellitus with diabetic neuropathy, unspecified; M86.60 Other chronic osteomyelitis, unspecified site; E11.51 Type 2 diabetes mellitus with diabetic peripheral angiopathy without gangrene; E11.69 Type 2 diabetes mellitus with other specified complication; D50.9 Iron deficiency anemia, unspecified; E78.00 Pure hypercholesterolemia, unspecified; E78.5 Hyperlipidemia, unspecified; F20.9 Schizophrenia, unspecified; F81.9 Developmental disorder of scholastic skills, unspecified; I12.9 Hypertensive chronic kidney disease with stage 1 through stage 4 chronic kidney disease, or unspecified chronic kidney disease; N18.3 Chronic kidney disease, stage 3 (moderate); Z89.432 Acquired absence of left foot

== ENCOUNTER 2016-11-12 14:19 | Day surgery (SDC) | payer MEDICARE, OTHER ==
[2016-11-12] MEDS ORDERED: Lidocaine 2% Inj (20ml) ONE (14:32)
[2016-11-12] MEDS ORDERED: Bupivacaine 0.5% Inj(30mL) ONE (14:33)
[2016-11-12] MEDS ORDERED: Gentamicin 80 mg/2mL Inj. ONE (14:41)
[2016-11-12] MEDS ORDERED: Propofol 10 mg/ml Inj (20 ML) ONE (14:47)
[2016-11-12] MEDS ORDERED: Midazolam 2 MG/2 ML VIAL ONE (14:48)
--- NOTE | 2016-11-12 16:37 | PCM.SURG1 ---
<Lauren Bassett - Last Filed: 11/16/16 09:13> Surgeon's Initial Post Op Note - Surgeon's Notes Surgeon: Dr. Salazar Information Services Tech: Dr. Bassett PGY-1 Type of Anesthesia: General Mask, Local Anesthesia Administered By: Dr. Sosa Pre-Operative Diagnosis: left foot osteomyelitis Operative Findings: see dictation Post-Operative Diagnosis: same Operation Performed: left foot TMA Specimen/Specimens Removed: bone and soft tissue Estimated Blood Loss: EBL {In ML}: 30 Blood Products Given: N/A Drains Used: No Drains Post-Op Condition: Good Date of Surgery/Procedure: 11/12/16 Time of Surgery/Procedure: 14:00 <Jeb Salazar - Last Filed: 11/16/16 11:08> Attending/Attestation - Attestation I have personally seen and examined this patient.: Yes I have fully participated in the care of the patient.: Yes I have reviewed all pertinent clinical information: Yes
[2016-11-12 16:42] VITALS: TEMP 98.3
[2016-11-12 17:26] VITALS: RESP 18
[2016-11-12 18:23] VITALS: BP 132/70; PULSE 84; O2SAT 99
--- NOTE | 2016-11-28 15:30 | PCM.OP ---
Operative Report - Operative Report Date of Surgery/Procedure: 11/12/16 Time of Surgery/Procedure: 16:00 Surgeon: Dr. Jeb Salazar Polyethylene Combiner: Dr. Essie Choi Anesthesia/Sedation: Following a period of IV sedation, general anesthesia, patient was given an ankle block consisting of approximately 19 cc's of a 1:1 ratio mitxute of 2% Lidocaine plain and 0.5% Narcaine plain. Pre-Operative Diagnosis: Osteomyelitis Post-Operative Diagnosis: Osteomyelitis Indication for Surgery: Indications: 56 year old male who has a long history of diabetic foot breakdown on his left foot with accompanying osteomyelitis and numerous bouts of osteomyelitis now presents with clinical osteomyelitis of the left 2nd metatarsal as well as exposed 3rd and 4th metatarsal bones. Xrays reveal osteomyelitis of the left 2nd metatarsal and there is clinical ostemyelitis of the left 3rd and 4th metatarsals. Patient has had numerous courses of 6 weeks of antibiotics over the last three years and it was decided by his sister and the medical team that a transmetatarsal amputation is warranted at this time. Patient is intellectually disabled and his sister, Mercedes Malagon, consented. Operative Findings: gangranous nectroic bone and soft tissue Procedure/Operation Description: The follow is the procedure in detail: patient was brought into the operating room and transferred from his hospital bed onto the operating room table in the supine position. Following a period of IV sedation, general anesthesia, patient was given an ankle block consisting of approximately 19 cc's of a 1:1 ratio mitxute of 2% Lidocaine plain and 0.5% Narcaine plain. At this point, the foot was inspected and there was noted to be a large ulceration at the plantar aspect of the foot that had exposed 2nd metatarsal bone with clinical visual 3rd metatarsal bone and the ulceration stretched laterally covering the 4th metatarsal as well. Tension was then directed to the dorsal aspect of the foot where a horizontal incision over the mid shift of the part of the metatarsals was made and followed laterally wrapping around the foot and extending distally at the plantar aspect of the foot under the metatarsal philangeal joint and continued medially up over the foot connecting to the original incision site. The incision was deepened and all vital and neuro structure were ligated and cauterized. Should be noted there was excellent bleeding at this time. Using a 15 blade the 2nd, 3rd, 4th, and 5th metatarsal philangeal joints were dissected free of their attachments and the entire forefoot was passed from the operative site. It should be noted that there was noted to be excellent bleeding occuring. The plantar flap was created at this time with dissection plantarly at the base at the plantart aspect of the metatarsals. Tension was then directed dorsally where a saggital saw was used to resect the the 2nd, 3rd, 4th, and 5th metatarsal shaft creating a proper anatomical parabola and the metatarsals were all removed in total from the operative field. Next, utilizing a rongeur, any osseous points were resected and a rasp was used to smooth all the edges of the resected metatarsals. At this time, 8,000 mL's of Gentamicin infused saline solution was used to irrigate the wound. It should be noted there was a large plantar ulceration that was present at the plantar flap which was excised in total and using a plastic surgery technique the plantar flap was closed,and the plantar ulceration was closed down with 3-0 nylon. Next, utilizing 3-0 vicryl the wound edges from the plantar flap were attached to the dorsal incision site using subcuticular sutures. Excess tissue was removed and the skin edges were properly aligned. Next, utilizing 3-0 nylon, the skin edges were approximated in a simple suture technique along with horizontal mattress technique sutures. Tucker were then used to reinforce the incision site. The incision site was then covered with betadine soaked adaptic sterile 4x4's, sterile abdominal pads , and curlex with coban was applied to the foot. Estimated Blood Loss: minimal Blood Replaced: none Sponge/Instrument Count: done by OR tech Drains: none Complications: None Specimen: bones and soft tissue Discharge & Condition: After post operative monitoring and xrays in the recovery room, the patient was transported back to his hospital bed in hospital room with all vital signs stable. Patient will be seen and followed in the morning.
== END 2016-11-12 18:21 ==
LOC: SDS 14:19
PROVIDERS: ATTEND Podiatrist
DX: E11.69 Type 2 diabetes mellitus with other specified complication (principal); M86.172 Other acute osteomyelitis, left ankle and foot; D50.9 Iron deficiency anemia, unspecified; N18.3 Chronic kidney disease, stage 3 (moderate); E11.22 Type 2 diabetes mellitus with diabetic chronic kidney disease; E11.621 Type 2 diabetes mellitus with foot ulcer; L97.529 Non-pressure chronic ulcer of other part of left foot with unspecified severity; Z79.84 Long term (current) use of oral hypoglycemic drugs; F79 Unspecified intellectual disabilities
CPT/HCPCS: 28805; 82948; 87070 ×2; 87181; 88305; 88311; J1580; J1885; J2250; J2405; J2704; J3010; J7120

== ENCOUNTER 2017-01-08 13:57 | Inpatient (IN) | payer MEDICARE, OTHER ==
[2017-01-08 14:17] VITALS: BMI 34.7
--- NOTE | 2017-01-08 15:06 | ED PDOC ---
Arrival/HPI - General Chief Complaint: Abdominal Pain Time Seen by Provider: 01/08/17 14:56 Historian: Patient - History of Present Illness Narrative History of Present Illness (Text): 01/08/17 15:06 A 56 year old male, whose past medical history includes diabetes, hypertension, CKD, PAD s/p right big toe amputation, presents to the emergency department complaining of episodes of dizziness and non-bilious non-bloody vomiting for the past 2 days. Patient also notes loose stool. Patient denies recent travel or antibiotic use. Patient denies any fever, chills, abdominal pain, urinary symptoms, chest pain, shortness of breath or any other complaints. 01/08/17 18:00 Time/Duration: Other (2 days) Symptom Course: Unchanged Quality: Other Context: Home Past Medical History - Provider Review Nursing Documentation Reviewed: Yes - Infectious Disease Hx of Infectious Diseases: None - Tetanus Immunization Tetanus Immunization: Unknown - Cardiac Hx Cardiac Disorders: Yes Hx Hypertension: Yes Hx Pacemaker: No - Pulmonary Hx Respiratory Disorders: No - Neurological Hx Paralysis: No - HEENT Hx HEENT Disorder: Yes Other/Comment: wears glasses - Renal Hx Renal Disorder: No - Endocrine/Metabolic Hx Endocrine Disorders: Yes Hx Diabetes Mellitus Type 2: Yes - Hematological/Oncological Hx Blood Disorders: No Hx Blood Transfusions: (UNKNOWN) - Integumentary Hx Dermatological Disorder: Yes Other/Comment: PVD - Musculoskeletal/Rheumatological Hx Musculoskeletal Disorders: No - Gastrointestinal Hx Gastrointestinal Disorders: No - Genitourinary/Gynecological Hx Genitourinary Disorders: No Hx Reproductive Disorders: No - Psychiatric Hx Emotional Abuse: No Hx Physical Abuse: No Hx Substance Use: No - Surgical History Other/Comment: all 5 toes amputated on L foot 11/12/2016 - Anesthesia Hx Anesthesia: Yes Hx Anesthesia Reactions: No Hx Malignant Hyperthermia: No - Suicidal Assessment Feels Threatened In Home Enviroment: No Family/Social History - Physician Review Nursing Documentation Reviewed: Yes Family/Social History: No Known Family HX Smoking Status: Never Smoked Hx Alcohol Use: No Hx Substance Use: No Allergies/Home Meds Allergies/Adverse Reactions: Allergies No Known Allergies Allergy (Verified 01/08/17 14:16) Home Medications: Home Meds Medication Instructions Recorded Confirmed Amlodipine Besylate 10 mg PO DAILY 02/23/15 01/08/17 glyBURIDE [Micronase] 5 mg PO BID 02/23/15 01/08/17 Hydrochlorothiazide [Microzide] 25 mg PO DAILY 09/11/16 01/08/17 Lisinopril [Zestril] 40 mg PO DAILY 09/11/16 01/08/17 MetFORMIN [glucoPHAGE] 1,000 mg PO BID 09/11/16 01/08/17 Simvastatin [Zocor] 20 mg PO DAILY 09/11/16 01/08/17 Fenofibrate [Tricor] 1 tab PO DAILY 09/17/16 01/08/17 Review of Systems - Physician Review All systems were reviewed & negative as marked: Yes - Review of Systems Constitutional: absent: Fevers, Night Sweats Respiratory: absent: SOB Cardiovascular: absent: Chest Pain Gastrointestinal: Stool Changes (loose stool), Vomiting. absent: Abdominal Pain Genitourinary Male: absent: Dysuria Musculoskeletal: Back Pain Neurological: Dizziness Physical Exam Vital Signs Reviewed: Yes Vital Signs Temp Pulse Resp BP Pulse Ox 01/08/17 14:19 97.6 F 93 H 19 113/70 100 Temperature: Afebrile Blood Pressure: Normal Pulse: Regular Respiratory Rate: Normal Appearance: Positive for: Well-Appearing, Non-Toxic, Comfortable Pain Distress: None Mental Status: Positive for: Alert and Oriented X 3 - Systems Exam Head: Present: Atraumatic, Normocephalic Pupils: Present: PERRL Extroacular Muscles: Present: EOMI, Other (horizontal nystagmus) Conjunctiva: Present: Normal Mouth: Present: Moist Mucous Membranes Pharnyx: No: ERYTHEMA, EXUDATE, TONSILS ENLARGED Neck: Present: Normal Range of Motion Respiratory/Chest: Present: Clear to Auscultation, Good Air Exchange. No: Respiratory Distress, Accessory Muscle Use Cardiovascular: Present: Regular Rate and Rhythm, Normal S1, S2. No: Murmurs Abdomen: Present: Normal Bowel Sounds. No: Tenderness, Distention, Peritoneal Signs Back: Present: Normal Inspection Upper Extremity: Present: Normal Inspection. No: Cyanosis, Edema Lower Extremity: Present: Normal Inspection. No: Edema Neurological: Present: GCS=15, CN II-XII Intact, Speech Normal Skin: Present: Warm, Dry, Normal Color. No: Rashes Psychiatric: Present: Alert, Oriented x 3, Normal Insight, Normal Concentration Medical Decision Making ED Course and Treatment: 01/08/17 15:06 Impression: A 56 year old male with dizziness, vomiting, diarrhea Plan: -- Chest xray -- EKG -- Labs -- Urinalysis -- Toradol, Anitvert, Zofran and IV fluids -- Reassess and disposition Prior Visits: Notes and results from previous visits were reviewed. Patient last seen in ED on 11/06/16 and hospitalized for SIRS, anemia and hyperkalemia. Progress Notes: EKG shows NSR at 85 BPM with 1st degree AV block, RBBB, no changes from prior on 11/06/16. Interpreted by me. Report Date : 01/08/2017 15:52:59 Procedure: Chest xray Dictator : Ariadne Meredith V. IMPRESSION: No active disease. 01/08/17 16:30 Labs reviewed, elevated BUN, creatinine and lipase. Acute on chronic renal failure likely secondary to dehydation. IVF infusing. Patient denies abdominal pain. No hx of pancreatitis and continues to deny abdominal pain, but will get obtain an abdomen ultrasound for further evaluation. Treatment for hyperkalemia ordered. Will need admission. Dr. Osvaldo huizar, awaiting call back. 01/08/17 16:[address] Riley, who accepts admission to telemetry observation for hyperkalemia and renal failure. He is aware of u/s and will follow-up. - Lab Interpretations Lab Results: 01/08/17 15:45 01/08/17 15:45 Lab Results 01/08/17 15:45: Blood Type A POSITIVE, Antibody Screen Negative, BBK History Checked Patient has bt 01/08/17 15:45: Sodium 143, Potassium 6.3 H* D, Chloride 118 H, Carbon Dioxide 11 L, Anion Gap 20, BUN 67 H, Creatinine 2.7 H, Est GFR ( Amer) 30, Est GFR (Non-Af Amer) 25, Random Glucose 83, Calcium 9.8, Phosphorus 4.2, Magnesium 1.5 L, Total Bilirubin 0.6, AST 20, ALT 33, Alkaline Phosphatase 66, Total Creatine Kinase 165, Troponin I < 0.01, Total Protein 7.3, Albumin 4.4, Globulin 2.9, Albumin/Globulin Ratio 1.5, Lipase 812 H 01/08/17 15:45: WBC 8.5 D, RBC 3.85, Hgb 11.1 L, Hct 34.2 L, MCV 88.8, MCH 28.8 , MCHC 32.5, RDW 15.1 H, Plt Count 158, MPV 11.1 H, Gran % 69.3 H, Lymph % (Auto ) 19.2 L, [place] % (Auto) 7.4 H, Eos % (Auto) 4.0, Baso % (Auto) 0.1, Gran # 5.92 , Lymph # 1.6, [place] # 0.6, Eos # 0.3, Baso # 0.01 I have reviewed the lab results: Yes - RAD Interpretation Radiology Orders: 01/08/17 15:06 CHEST PORTABLE [RAD] Stat 01/08/17 16:27 ABDOMEN COMPLETE [US] Stat - Medication Orders Current Medication Orders: Discontinued Medications Calcium Gluconate (Calcium Gluconate Iv) 1,000 mg IVP ONCE ONE Stop: 01/08/17 16:29 Last Admin: 01/08/17 17:21 Dose: 1,000 mg Dextrose (Dextrose 50% Inj) 50 ml IVP STAT STA Stop: 01/08/17 16:30 Last Admin: 01/08/17 17:21 Dose: 50 ml Sodium Chloride (Sodium Chloride 0.9%) 1,000 mls @ 999 mls/hr IV .Q1H1M STA Stop: 01/08/17 16:07 Last Admin: 01/08/17 15:55 Dose: 999 mls/hr Sodium Chloride (Sodium Chloride 0.9%) 1,000 mls @ 999 mls/hr IV .Q1H1M STA Stop: 01/08/17 17:28 Last Admin: 01/08/17 17:21 Dose: 999 mls/hr Insulin Human Regular (Humulin R) 8 units IV STAT STA Stop: 01/08/17 16:30 Last Admin: 01/08/17 17:21 Dose: 8 units Ketorolac Tromethamine (Toradol) 30 mg IVP STAT STA Stop: 01/08/17 15:08 Last Admin: 01/08/17 15:56 Dose: 30 mg Meclizine HCl (Antivert) 25 mg PO STAT STA Stop: 01/08/17 15:08 Last Admin: 01/08/17 15:55 Dose: 25 mg Ondansetron HCl (Zofran Inj) 4 mg IVP STAT STA Stop: 01/08/17 15:08 Last Admin: 01/08/17 15:56 Dose: 4 mg Sodium Bicarbonate (Sodium Bicarbonate (8.4%) 50 Meq Syringe) 50 meq IVP STAT STA Stop: 01/08/17 16:29 Last Admin: 01/08/17 17:21 Dose: 50 meq - Scribe Statement The provider has reviewed the documentation as recorded by the Katie Cameron Provider Scribe Attestation: All medical record entries made by the Janeiblenka were at my direction and personally dictated by me. I have reviewed the chart and agree that the record accurately reflects my personal performance of the history, physical exam, medical decision making, and the department course for this patient. I have also personally directed, reviewed, and agree with the discharge instructions and disposition. Disposition/Present on Arrival - Present on Arrival Any Indicators Present on Arrival: No History of DVT/PE: No History of Uncontrolled Diabetes: Yes Urinary Catheter: No History of Decub. Ulcer: No History Surgical Site Infection Following: None - Disposition Have Diagnosis and Disposition been Completed?: Yes Diagnosis: Acute renal insufficiency, Nausea vomiting and diarrhea, Elevated lipase Disposition: HOSPITALIZED Disposition Time: 16:30 Patient Plan: Observation Condition: FAIR
[2017-01-08] MEDS ORDERED: Sodium Chloride 0.9% 1,000 ML IV STA ×2 (15:07→16:28)
--- NOTE | 2017-01-08 15:54 | RAD ---
HISTORY: dizziness COMPARISON: 11/06/2016 FINDINGS: LUNGS: No active pulmonary disease. PLEURA: No significant pleural effusion identified, no pneumothorax apparent. CARDIOVASCULAR: Normal. OSSEOUS STRUCTURES: Thoracic spondylosis VISUALIZED UPPER ABDOMEN: Normal. OTHER FINDINGS: None. IMPRESSION: No active disease.
[2017-01-08 16:11] LABS: BASO # 0.01 K/mm3 (0.0-2.0); BASO % 0.1 % (0.0-3.0); EOS # 0.3 (0.0-0.7); GRAN # 5.92 (1.4-6.5); GRAN % 69.3 % (50.0-68.0); HEMATOCRIT 34.2 % (42.0-52.0); LYMPH # 1.6 (1.2-3.4); LYMPH % 19.2 % (22.0-35.0); MEAN CELL VOLUME 88.8 fl (80.0-105.0); MEAN CORPUSCULAR HEMOGLOBIN 28.8 pg (25.0-35.0); MEAN CORPUSCULAR HGB CONC 32.5 g/dl (31.0-37.0); MEAN PLATELET VOLUME 11.1 fl (7.0-11.0); MONO # 0.6 (0.1-0.6); MONO % 7.4 % (1.0-6.0); RED CELL DISTRIBUTION WIDTH 15.1 % (11.5-14.5); WHITE BLOOD COUNT 8.5 10^3/ul (4.5-11.0)
[2017-01-08 16:12] LABS: ALB/GLOB RATIO 1.5 (1.1-1.8); ALKALINE PHOSPHATASE 66 U/L (38-133); ALT/SGPT 33 U/L (7-56); AST/SGOT 20 U/L (15-59); BILIRUBIN,TOTAL 0.6 mg/dL (0.2-1.3); BLOOD UREA NITROGEN 67 mg/dL (7-21); CALCIUM 9.8 mg/dL (8.4-10.5); CARBON DIOXIDE 11 mmol/L (21-33); CHLORIDE 118 mmol/L (98-107); GFR AFRICAN-AMERICAN 30; GLUCOSE,RANDOM 83 mg/dL (70-110); LIPASE 812 U/L (23-300); MAGNESIUM 1.5 mg/dL (1.7-2.2); PHOSPHOROUS 4.2 mg/dL (2.5-4.5); SODIUM 143 mmol/L (132-148); TOTAL PROTEIN 7.3 g/dL (5.8-8.3)
[2017-01-08] MEDS ORDERED: Sodium Bicarbonate (8.4%) 50 Meq Syringe IVP STA (16:28)
[2017-01-08 16:29] LABS: TROPONIN I < 0.01 ng/mL
[2017-01-08] MEDS ORDERED: Dextrose 50% SYRINGE Inj (50 ml) IVP STA (16:29)
[2017-01-08] MEDS ORDERED: Insulin Regular 1 UNITS/0.01 ML ML IV STA (16:29)
[2017-01-08 16:51] LABS: POTASSIUM 6.3 mmol/L (3.6-5.0)
--- NOTE | 2017-01-08 19:07 | CARD ---
APPROVED REPORT EKG Measurement Heart [id number] <Conclusion> Sinus rhythm with 1st degree AV block Right bundle branch block Abnormal ECG
[2017-01-08] MEDS ORDERED: Magnesium Sulfate 2 GM in Sodium Chloride 0.9% 100 ML IV ONE (19:39)
--- NOTE | 2017-01-08 20:40 | US ---
EXAM: US Abdomen Complete EXAM DATE/TIME: 01/08/2017 4:27 PM CLINICAL HISTORY: The patient age is 56 years old and is male; Pain; Abdominal pain; Additional info: Diarrhea, vomiting, abdominal pain, elevated lipas Facility exam id and description: Us abd abdomen complete TECHNIQUE: Real-time ultrasound of the abdomen (complete) with image documentation. COMPARISON: No relevant prior studies available. FINDINGS: Liver: The liver is increased in echogenicity, most commonly due to fatty infiltration, but other chronic liver diseases may have a similar appearance. A shadowing calcification is visualized within the right lobe of the liver measuring 0.7 x 0.5 x 0.9 cm. Within the left lobe of the liver superiorly, there are 2 areas or lesions of heterogeneous increased echogenicity with posterior acoustic shadowing, the largest measuring 2.6 x 1.6 cm. This is visualized on the first and second images of the study. This finding is incompletely evaluated. The liver measures 18.2 x 15.7 cm, consistent with mild hepatomegaly. Gallbladder: Shadowing gallstones are visualized. The gallbladder wall thickness measures 0.28 cm, which is at the upper limits of normal. There is a negative sonographic Shelton's sign. Common bile duct: The common bile duct measures 0.56 cm in diameter. No dilation. Pancreas: There is suboptimal evaluation of the tail of the pancreas due to bowel gas. There is increased echogenicity of the remaining pancreas, suggestive of fatty infiltration. Kidneys: The right kidney measures 9.2 x 6.2 x 6.0 cm. The left kidney measures 9.7 x 5.0 x 5.1 cm. No shadowing stones. No hydronephrosis. Spleen: The spleen measures 14.5 x 4.5 cm, consistent with splenomegaly. There is normal echotexture of the spleen. Aorta: There is a limited evaluation of the abdominal aorta. Inferior vena cava: The inferior vena cava is not imaged. IMPRESSION: 1. Cholelithiasis. The gallbladder wall thickness is at the upper limits of normal. 2. There is suboptimal evaluation of the tail of the pancreas due to bowel gas. There is increased echogenicity of the remaining pancreas, suggestive of fatty infiltration. Correlation with CT or MRI is recommended due to the elevation in lipase. 3. The liver is increased in echogenicity, most commonly due to fatty infiltration, but other chronic liver diseases may have a similar appearance. Mild hepatomegaly. 4. A shadowing calcification is visualized within the right lobe of the liver measuring 0.7 x 0.5 x 0.9 cm. Within the left lobe of the liver superiorly, there are 2 areas or lesions of heterogeneous increased echogenicity with posterior acoustic shadowing, the largest measuring 2.6 x 1.6 cm. A nonemergent MRI of the abdomen with contrast (if possible) is recommended. 5. Additional findings described above.
[2017-01-08] MEDS: Insulin Reg-LOW-Coverage SC SCH (21:30)
[2017-01-08 22:24] LABS: URINE BILIRUBIN NEGATIVE (NEGATIVE); URINE BLOOD NEGATIVE (NEGATIVE); URINE GLUCOSE (UA) NEGATIVE (NEGATIVE); URINE KETONE NEGATIVE (NEGATIVE); URINE LEUKOCYTE ESTERASE NEGATIVE Leu/uL (NEGATIVE); URINE PROTEIN TRACE mg/dL (<30 mg/dL); URINE UROBILINOGEN 0.2 E.U./dL (<1 E.U./dL)
[2017-01-08] MEDS ORDERED: Pneumococcal 23-Valent Vaccine IM ONE (22:27)
[2017-01-08 22:48] LABS: URINE APPEARANCE CLEAR (CLEAR); URINE BACTERIA FEW (NEG); URINE COLOR YELLOW (YELLOW); URINE RBC NEGATIVE /hpf (0-2)
[2017-01-09 06:45] LABS: HEMATOCRIT 29.8 % (42.0-52.0); MEAN CELL VOLUME 87.1 fl (80.0-105.0); MEAN CORPUSCULAR HEMOGLOBIN 27.8 pg (25.0-35.0); MEAN CORPUSCULAR HGB CONC 31.9 g/dl (31.0-37.0); MEAN PLATELET VOLUME 11.2 fl (7.0-11.0); WHITE BLOOD COUNT 5.9 10^3/ul (4.5-11.0)
[2017-01-09 07:10] LABS: ALB/GLOB RATIO 1.3 (1.1-1.8); BILIRUBIN,TOTAL 0.5 mg/dL (0.2-1.3); CALCIUM 9.3 mg/dL (8.4-10.5); TOTAL PROTEIN 6.4 g/dL (5.8-8.3)
[2017-01-09 07:24] LABS: POTASSIUM 5.9 mmol/L (3.6-5.0)
[2017-01-09] MEDS: Insulin Reg-LOW-Coverage SC SCH ×4 (08:21→22:05)
[2017-01-09] MEDS ORDERED: Sod Polystyrene Sulf 15 gm/60 ml Oral Susp PO ONE (08:45)
[2017-01-10 07:03] LABS: BASO # 0.01 K/mm3 (0.0-2.0); BASO % 0.1 % (0.0-3.0); EOS # 0.5 (0.0-0.7); EOS % 7.3 % (1.5-5.0); GRAN # 3.85 (1.4-6.5); GRAN % 57.9 % (50.0-68.0); LYMPH # 1.8 (1.2-3.4); LYMPH % 26.8 % (22.0-35.0); MEAN CORPUSCULAR HGB CONC 32.5 g/dl (31.0-37.0); MEAN PLATELET VOLUME 11.2 fl (7.0-11.0); MONO # 0.5 (0.1-0.6); MONO % 7.9 % (1.0-6.0); RED CELL DISTRIBUTION WIDTH 14.7 % (11.5-14.5); WHITE BLOOD COUNT 6.7 10^3/ul (4.5-11.0)
[2017-01-10 07:23] LABS: ALB/GLOB RATIO 1.4 (1.1-1.8); BILIRUBIN,TOTAL 0.7 mg/dL (0.2-1.3); CALCIUM 9.5 mg/dL (8.4-10.5); MAGNESIUM 1.3 mg/dL (1.7-2.2)
[2017-01-10 07:27] LABS: POTASSIUM 5.5 mmol/L (3.6-5.0)
[2017-01-10] MEDS: Insulin Reg-LOW-Coverage SC SCH ×4 (08:26→22:07)
[2017-01-10] MEDS ORDERED: Sod Polystyrene Sulf 15 gm/60 ml Oral Susp PO ONE (08:50)
--- NOTE | 2017-01-10 13:07 | HP ---
CHIEF COMPLAINT AND HISTORY OF PRESENT ILLNESS: This is a 56-year-old male who is coming into the hospital with complaints of nausea and vomiting. He planned to see his communications engineering technician. Dr. Brown and was sent to the emergency room for further evaluation for his nausea and vomiting. He has past history of diabetes, hypertension, peripheral arterial disease, he has noncompliance with his treatment plan for his foot ulcer. The patient does not complain of any fevers or chills. No nausea. No abdominal pain. This morning he has no dysuria or frequency. He says he has been taking his medications. He says he otherwise feels well. PAST MEDICAL HISTORY: , diabetes type 2, dyslipidemia, left foot ulcer, schizophrenia, peripheral neuropathy. MEDICATIONS: Amlodipine, glipizide, hydrochlorothiazide, lisinopril, Zocor, metformin and TriCor. SOCIAL HISTORY: He does not smoke. He lives with his family. He denies drug use. PAST SURGICAL HISTORY: Left great toe amputation. PHYSICAL EXAMINATION VITAL SIGNS: Temperature is 97.2, pulse is 76, blood pressure 136/79 and respirations 20. GENERAL: The patient lying in bed, uncomfortable, and in no acute distress. HEENT: Atraumatic and normocephalic. Anicteric sclerae. Moist mucosa. Algood conjunctivae. No oral lesions. NECK: No JVD, anterior and posterior adenopathy, thyromegaly, or bruits. CARDIOVASCULAR: S1 and S2 regular. No murmur, rubs, or gallop. LUNGS: Clear to auscultation bilaterally. No wheezes, rales, or rhonchi. ABDOMEN: Bowel sounds are positive. Soft, nontender and nondistended. No hepatosplenomegaly. No rebound and no guarding. EXTREMITIES: No cyanosis, clubbing, or edema. NEUROLOGIC: No facial asymmetry. Tongue is midline. No uvula deviation. Power is 5/5 upper extremity and lower extremity. Sensation intact in upper extremity and lower extremity. PSYCHIATRIC: She is awake, alert and oriented x3. No anxiety or depression. She has normal affect. GENITOURINARY: No CVA tenderness. VASCULAR: 2+ pulses in the carotid pulses and pedal pulses. SKIN: No erythema or nodules. SPINE: Shows normal curvature. EXTREMITIES: No Cyanosis and clubbing, no edema. LABORATORY DATA: White count of 8.5 and hemoglobin 11.1. Chemistry shows lipase of 812, patient's potassium initially was 6.3, repeat is 5.9 and bicarbonate of 14. Abdominal ultrasound done shows a fatty liver, cholelithiasis, calcification in the right lobe of liver. Chest x-ray done shows no infiltrates. EKG done shows sinus rhythm with first degree AV block, right bundle-branch block is present, heart rate is 85. ASSESSMENT: 1. Hyperkalemia. 2. Acute kidney injury. 3. Hypomagnesemia. 4. Chronic kidney disease stage III. 5. Diabetes type 2. 6. Diabetic neuropathy. 7. Diabetic nephropathy. 8. Dyslipidemia. 9. Peripheral arterial disease. PLAN: The patient is currently comfortable. We will repeat his blood work tomorrow. His magnesium is improved. His potassium is improving. He is given another dose of Kayexalate. He is on hydrochlorothiazide for his hypertension. He is on Lipitor for dyslipidemia and Norvasc for his hypertension. He is on Seroquel for his hypertension as well. He is having nausea and vomiting that is improved. We will continue to follow closely. Rocky Riley MD
--- NOTE | 2017-01-10 14:16 | CP.PCM.CON ---
History of Present Illness - History of Present Illness History of Present Illness: Gen Surg: Dr Cortez Mr. Malagon is a 56 year old male with a PMH of HTN, DM, PAD s/p left foot full toe amputation, dyslipidemia, peripheral neuropathy, and schizophrenia, who presented with dizziness which began 4 days ago. Associated symptoms include vomiting, diarrhea, loss of appetite and back pain. This is the first time that he has had these symptoms. Today he has no complaints besides dizziness. Denies fever, chills, shortness of breath, and chest pain. Pt is very adamant he has no abdominal pain at this time, nor did he upon admission. Review of Systems - Review of Systems All systems: reviewed and no additional remarkable complaints except Review of Systems: As per HPI Past Patient History - Infectious Disease Hx of Infectious Diseases: None - Tetanus Immunizations Tetanus Immunization: Unknown - Past Social History Smoking Status: Never Smoked - CARDIAC Hx Cardiac Disorders: Yes Hx Hypercholesterolemia: Yes Hx Hypertension: Yes Hx Pacemaker: No Hx Peripheral Vascular Disease: Yes - PULMONARY Hx Respiratory Disorders: No - NEUROLOGICAL Hx Neurological Disorder: Yes - HEENT Hx HEENT Problems: Yes Other/Comment: wears glasses, speech impediment - RENAL Hx Chronic Kidney Disease: No - ENDOCRINE/METABOLIC Hx Endocrine Disorders: Yes Hx Diabetes Mellitus Type 2: Yes - HEMATOLOGICAL/ONCOLOGICAL Hx Blood Disorders: No - INTEGUMENTARY Hx Dermatological Problems: Yes Other/Comment: PVD, multiple healed wounds ble skin discolorations - MUSCULOSKELETAL/RHEUMATOLOGICAL Hx Falls: No - GASTROINTESTINAL Hx Gastrointestinal Disorders: No - GENITOURINARY/GYNECOLOGICAL Hx Genitourinary Disorders: No - PSYCHIATRIC Hx Substance Use: No - SURGICAL HISTORY Other/Comment: all 5 toes amputated on L foot 11/12/2016, picc line x 2 08/07/12 and 06/02/16 - ANESTHESIA Hx Anesthesia: Yes Hx Anesthesia Reactions: No Hx Malignant Hyperthermia: No Meds Allergies/Adverse Reactions: Allergies Allergy/AdvReac Type Severity Reaction Status Date / Time No Known Allergies Allergy Verified 01/08/17 14:16 - Medications Medications: Current Medications Amlodipine Besylate (Norvasc) 10 mg PO DAILY [facility] Last Admin: 01/10/17 09:47 Dose: 10 mg Atorvastatin Calcium (Lipitor) 10 mg PO HS [facility] Last Admin: 01/09/17 22:03 Dose: 10 mg Fenofibrate (Tricor) 145 mg PO DAILY [facility] Last Admin: 01/10/17 09:46 Dose: 145 mg Hydrochlorothiazide (Hydrodiuril) 25 mg PO DAILY [facility] Last Admin: 01/10/17 09:47 Dose: 25 mg Insulin Human Regular (Humulin R Low) 0 units SC ACHS [facility] PRN Reason: Protocol Last Admin: 01/10/17 11:38 Dose: Not Given Lisinopril (Zestril) 40 mg PO DAILY [facility] Last Admin: 01/10/17 09:47 Dose: 40 mg Metformin HCl (Glucophage) 1,000 mg PO BID [facility] Last Admin: 01/10/17 09:47 Dose: 1,000 mg Physical Exam - Constitutional Appears: Non-toxic, No Acute Distress - Head Exam Head Exam: NORMOCEPHALIC - Eye Exam Eye Exam: Normal appearance - ENT Exam ENT Exam: Mucous Membranes Moist - Respiratory Exam Respiratory Exam: NORMAL BREATHING PATTERN - Cardiovascular Exam Cardiovascular Exam: REGULAR RHYTHM - GI/Abdominal Exam GI & Abdominal Exam: Normal Bowel Sounds. absent: Organomegaly, Tenderness - Rectal Exam Rectal Exam: Deferred - Neurological Exam Neurological exam: Alert, CN II-XII Intact - Skin Skin Exam: Intact, Warm Results - Vital Signs Recent Vital Signs: Last Vital Signs Temp 97.5 F L 01/10/17 07:00 Pulse 83 01/10/17 07:00 Resp 18 01/10/17 07:00 BP 137/88 01/10/17 09:47 Pulse Ox 100 01/10/17 07:00 - Labs Result Diagrams: 01/10/17 06:30 01/10/17 06:30 Labs: Laboratory Results - last 24 hr 01/09/17 01/10/17 01/10/17 21:39 06:30 06:30 WBC 6.7 RBC 3.72 Hgb 10.4 L Hct 32.0 L MCV 86.0 MCH 28.0 MCHC 32.5 RDW 14.7 H Plt Count 150 MPV 11.2 H Gran % 57.9 Lymph % (Auto) 26.8 [place] % (Auto) 7.9 H Eos % (Auto) 7.3 H Baso % (Auto) 0.1 Gran # 3.85 Lymph # 1.8 [place] # 0.5 Eos # 0.5 Baso # 0.01 Sodium 140 Potassium 5.5 H Chloride 114 H Carbon Dioxide 16 L Anion Gap 16 BUN 42 H Creatinine 1.7 H Est GFR ( Amer) 51 Est GFR (Non-Af Amer) 42 POC Glucose (mg/dL) 119 H Random Glucose 79 Calcium 9.5 Magnesium 1.3 L Total Bilirubin 0.7 AST 20 ALT 32 Alkaline Phosphatase 63 Total Protein 7.0 Albumin 4.0 Globulin 3.0 Albumin/Globulin Ratio 1.4 01/10/17 01/10/17 07:39 11:08 WBC RBC Hgb Hct MCV MCH MCHC RDW Plt Count MPV Gran % Lymph % (Auto) [place] % (Auto) Eos % (Auto) Baso % (Auto) Gran # Lymph # [place] # Eos # Baso # Sodium Potassium Chloride Carbon Dioxide Anion Gap BUN Creatinine Est GFR ( Amer) Est GFR (Non-Af Amer) POC Glucose (mg/dL) 89 113 H Random Glucose Calcium Magnesium Total Bilirubin AST ALT Alkaline Phosphatase Total Protein Albumin Globulin Albumin/Globulin Ratio Assessment & Plan - Assessment and Plan (Free Text) Assessment: 56M admitted for dizziness w/ N/V. Mild pancreatitis and ULI. Plan: Current presentation unlikely due to biliary etiology cont IV fluids for pancreatitis mgmt of ULI and dizziness per primary Zofran for nausea will cont to follow OK to trial CLD No immediate surgical intent planned d/w Dr Diego Park, PGY3
[2017-01-10 16:00] VITALS: RESP 20
[2017-01-10] MEDS ORDERED: Magnesium Sulfate 2 GM in Sodium Chloride 0.9% 100 ML IV ONE (22:08)
--- NOTE | 2017-01-11 02:12 | PN ---
DATE: 01/10/2017 SUBJECTIVE: The patient has no complains of any chest pain, no shortness of breath, no headaches or dizziness. PHYSICAL EXAMINATION: VITAL SIGNS: Temperature is 97.6, pulse of 88, blood pressure is 137/79 and respirations 18. GENERAL: The patient is lying in bed, flat, comfortable. HEENT: No oral lesion. Anicteric sclerae. Moist mucosa. NECK: No JVD, adenopathy, or thyromegaly. CARDIOVASCULAR: S1 and S2, regular. No murmurs, rubs, or gallops. LUNGS: Clear to auscultation bilaterally. No wheeze, rales, or rhonchi. ABDOMEN: Bowel sounds are positive, soft, nontender and nondistended. EXTREMITIES: no cyanosis, clubbing or edema. LABS: White count of 6.7 and hemoglobin 10.4. Creatinine is 1.7 and potassium is 5.5. ASSESSMENT: 1. Acute kidney injury. 2. Hyperkalemia. 3. Hypomagnesemia. 4. Chronic kidney disease, stage III. 5. Nausea and vomiting, improved. 6. Diabetes type 2. 7. Diabetic neuropathy. 8. Diabetic nephropathy. 9. Dyslipidemia. 10. Peripheral arterial disease. PLAN: The patient is currently comfortable. His creatinine has improved. He has a magnesium less low at 1.3. I will replace his magnesium. He is on Lipitor for dyslipidemia. He was given a dose of Kayexalate today. The patient is on lisinopril, I am not sure if he can tolerate the lisinopril given his hyperkalemia. The patient is on hydrochlorothiazide. He is on amlodipine for hypertension. We will need to recheck his blood work tomorrow. Rocky Riley MD
--- NOTE | 2017-01-11 02:21 | OP ---
PROCEDURE DATE: Patient was seen several months ago with an acute cholecystitis, he elected to go home. He was seen yesterday at the time of dialysis with acute chronic cholecystitis after biliary colic. In the operating room patient was identified by name, number, procedure, laterality, my beth and his consent. After the successful timeout, the abdomen was prepped and draped in a usual manner. A Veress needle was inserted with the opening pressure about 4. A 4 liters were insufflated through a pressure about 10. The Visiport was placed without incident. Patient was placed and the gallbladder position with the head up and rotated to the flatbed owner operator on the left side. The gallbladder was inflamed chronically. A Prestige was used to pull the gallbladder up at the fundus, then at the infundibulum and did get dissection nicely on the gallbladder. The plain peritoneum was pulled down exposing very quickly the cystic duct. The cystic duct was inflamed, the artery we had a hard time finding. It was noted that the Prestige clamp entered the gallbladder by pulling and further elucidating the view of safety. The gallbladder was taken off the liver bed on the left side of the gallbladder, we started doing the gallbladder, it was entered with bile. A cholangiogram was then done through the identified cystic duct. It was opened, the mushy bolus of sludge came out followed by some bile. The cholangiogram was unsuccessful, I believe it was done in a false passage. No dye went into anything. At this point I was unclear about the anatomy and the abdomen was opened, it was opened generously through an Jodee incision and the Bookwalter was used. The cystic duct structure that had been clipped was identified, circumscribed with a chromic and behind it was a structure that did not seem to have but it is certainly there. Gallbladder taken off of the liver bed using the long cautery tip by sharp blunt cautery dissection. The gallbladder was entered several times, but the entire gallbladder was eventually removed off the gallbladder bed. An arterial structure was seen high up where we had entered the gallbladder, this was eventually clipped, it was seemed to be bleeding and a suture ligature of this cystic artery was performed, it adequately worked. There was nothing else untoward. Dissection then was of the 2 structures going into to the gallbladder. The cystic duct was clearly identified. The other structure was teased away until there was nothing, but a fibrous tissue without a lumen and it was clipped and cut. The gallbladder then doubly clipped and removed. There was a little bit of bleeding, then we did irrigation and pressure and stopped nicely, there was no bleeding, no bile. Now we attempted the cholangiogram, I could not enter the lumen of the cystic duct. Breezy was placed, and eventually the incisions were closed with running #1 PDS and Novafil, running closed nicely. The incisions were closed with Vicryl, ori. Patient was taken to the recovery room in good condition after the sponge and needle counts were clear and correct. Russell Cortez MD
[2017-01-11 07:00] LABS: ALB/GLOB RATIO 1.4 (1.1-1.8); BILIRUBIN,TOTAL 0.6 mg/dL (0.2-1.3); CALCIUM 9.7 mg/dL (8.4-10.5); POTASSIUM 5.2 mmol/L (3.6-5.0); TOTAL PROTEIN 7.2 g/dL (5.8-8.3)
[2017-01-11 07:03] LABS: MEAN CELL VOLUME 85.6 fl (80.0-105.0); MEAN CORPUSCULAR HEMOGLOBIN 28.2 pg (25.0-35.0); MEAN CORPUSCULAR HGB CONC 32.9 g/dl (31.0-37.0); MEAN PLATELET VOLUME 11.2 fl (7.0-11.0); RED CELL DISTRIBUTION WIDTH 14.6 % (11.5-14.5)
[2017-01-11 08:26] VITALS: PULSE 73; TEMP 98.6; O2SAT 98
[2017-01-11] MEDS: Insulin Reg-LOW-Coverage SC SCH ×2 (09:33→12:10)
[2017-01-11 09:34] VITALS: BP 140/80
--- NOTE | 2017-01-11 13:00 | PN ---
DATE: 01/11/2017 SUBJECTIVE: This is a 56-year-old male who came into the hospital because of nausea and vomiting. The patient has acute kidney injury with chronic kidney disease, he had hyperkalemia. The patient has improvement of his symptoms. He has no complaints of any chest pain or shortness of breath or headaches. He is feeling well. He is able to tolerate his diet. PHYSICAL EXAMINATION: VITAL SIGNS: Temperature 97.6, pulse of 88, blood pressure 135/79, and respirations 20. GENERAL: The patient is lying in bed, flat, comfortable. HEENT: No oral lesion. Anicteric sclerae. Moist mucosa. NECK: No JVD, adenopathy, or thyromegaly. CARDIOVASCULAR: S1 and S2, regular. No murmurs, rubs, or gallops. LUNGS: Clear to auscultation bilaterally. No wheeze, rales, or rhonchi. ABDOMEN: Bowel sounds are positive, soft, nontender and nondistended. EXTREMITIES: No cyanosis, clubbing or edema. ASSESSMENT: 1. Acute kidney injury with chronic kidney disease stage III, improved. 2. Hyperkalemia, improved. 3. Hypomagnesemia. 4. Nausea and vomiting, resolved. 5. Diabetes type 2. 6. Diabetic neuropathy. 7. Diabetic nephropathy. 8. Dyslipidemia. 9. Peripheral arterial disease. PLAN: The patient is currently comfortable. He is tolerating his diet. He is on his metformin. The patient is on hydrochlorothiazide. He is on Lipitor for dyslipidemia. He has been taking lisinopril as an outpatient. I have advised him to discontinue his lisinopril. I also reconciled his medications and discontinued his lisinopril. We will reevaluate his blood pressure as an outpatient. Condition is stable. Activities, increase as tolerated. He want to continue his renal diet. Rocky Riley MD
--- NOTE | 2017-01-11 21:09 | CON ---
DATE: 01/11/2017 HISTORY OF PRESENT ILLNESS: A 56-year-old male well known to the [facility]ound Care team, seen at bedside for continued evaluation and management of an ulceration on his left foot. The patient had undergone left transmetatarsal amputation approximately 6 weeks ago and had an associated ulceration from that surgery. Wound is almost closed now and patient is doing well. PAST MEDICAL HISTORY: Significant for longstanding type 2 diabetes with severe peripheral neuropathy, hypertension, peripheral arterial disease, dyslipidemia, and schizophrenia. PAST SURGICAL HISTORY: Includes numerous pedal amputations. SOCIAL HISTORY: The patient has an intellectual disability, was never , lives at home with his mother. Never smoked, drank alcohol or abused drugs. FAMILY HISTORY: Significant for diabetes. HOME MEDICATIONS: Are noted in MAR. ALLERGIES: PATIENT HAS NO KNOWN DRUG ALLERGIES. PHYSICAL EXAMINATION: VITAL SIGNS: Reveal temperature of 98.6 with pulse rate of 73, blood pressure of 107/60, respiratory rate of 20. OBJECTIVE: Weakly palpable dorsalis pedal pulse and nonpalpable posterior tibial pulse noted bilaterally. The patient is unable to detect 5.07 g monofilament wire testing bilaterally. Lower extremity skin is thin, shining, and discolored bilaterally. Left foot presents with a transmetatarsal amputation with a full-thickness ulceration at the medial aspect of the incision site that measures approximately 0.5 x 0.5 x 0.2 cm. The base of the ulcer is primarily granular. The wound does not probe to tendon or bone. There is no signs of purulence to suggest underlying abscess formation. The area is not edematous, erythematous or cellulitic. LABORATORY FINDINGS: Reveal a white count of 7, hemoglobin of 11.2, hematocrit of 34, and platelet count of 159. There is no microbiology report. ASSESSMENT: Full-thickness ulceration at the transmetatarsal amputation site on the left foot. PLAN: Wound was cleansed with normal sterile saline. We applied Silvercel, Optifoam and a dry sterile dressing. The patient has visiting nurse services come on and Saturday. The patient is being discharged today, so that the visiting nurses will change the dressing on Saturday and he will follow up with the Wound Center on Saturday. Jeb Salazar DPM
--- NOTE | 2017-02-07 01:15 | DS ---
This is a 56-year-old male who was coming into the hospital with acute kidney injury on CKG stage III. The patient was given IV fluids. His lisinopril was discontinued. The patient had nausea and vomiting, that improved as well. The patient was discharged home. Please see the note dictated on 01/11/2017 for further details. Rocky Riley MD
== END 2017-01-11 15:08 | disposition home health service (06) | DRG 682 ==
LOC: ED 13:57 → ERH 16:33 → 2RSO 19:15 → OBSVTOIN 01-09 09:53 → 5RNO 01-09 18:24
PROVIDERS: ADMIT Internal Medicine Nephrology; ATTEND Internal Medicine Nephrology
DX: N17.9 Acute kidney failure, unspecified (principal); K85.90 Acute pancreatitis without necrosis or infection, unspecified; E11.42 Type 2 diabetes mellitus with diabetic polyneuropathy; E11.21 Type 2 diabetes mellitus with diabetic nephropathy; E11.22 Type 2 diabetes mellitus with diabetic chronic kidney disease; E11.621 Type 2 diabetes mellitus with foot ulcer; E87.5 Hyperkalemia; I12.9 Hypertensive chronic kidney disease with stage 1 through stage 4 chronic kidney disease, or unspecified chronic kidney disease; N18.3 Chronic kidney disease, stage 3 (moderate); L97.529 Non-pressure chronic ulcer of other part of left foot with unspecified severity; E78.5 Hyperlipidemia, unspecified; F20.9 Schizophrenia, unspecified; E83.42 Hypomagnesemia; E11.51 Type 2 diabetes mellitus with diabetic peripheral angiopathy without gangrene; F79 Unspecified intellectual disabilities; Z91.19 Patient's noncompliance with other medical treatment and regimen; Z89.412 Acquired absence of left great toe

== ENCOUNTER 2018-06-03 12:57 | Outpatient (CLI) | payer OTHER | END 2018-06-03 12:58 | disposition home or self-care (01) | LOC: RAD 12:57 ==

== ENCOUNTER 2018-07-08 13:44 | Emergency (ER) | payer OTHER ==
[2018-07-08 14:49] VITALS: BMI 36.6
[2018-07-08 14:50] VITALS: BP 176/81; RESP 18; TEMP 97.3; O2SAT 98
--- NOTE | 2018-07-08 15:24 | ED PDOC ---
Arrival/HPI <Jeromy Gaviria - Last Filed: 07/08/18 17:56> - History of Present Illness Narrative History of Present Illness (Text): 07/08/18 15:24 58M w/ pmh HTN, DM, PAD, Peripheral Neuropathy, Learning disorder, dyslipidemia, CKDIII, Schizophrenia. Presents to [facility] ED after wound care appointment this AM due to hypertension w/ pressure readin/100. Denied any complaints of chest pain, sob, dizziness, headache, visual changes, ringing of ears. No further complaints offered on exam. Time/Duration: Prior to Arrival Symptom Onset: Sudden Symptom Course: Improving Quality: Unable to Describe <Mayank Cartagena - Last Filed: 07/08/18 19:16> - General Chief Complaint: High Blood Pressure Past Medical History - Provider Review Nursing Documentation Reviewed: Yes - Infectious Disease Hx of Infectious Diseases: None - Tetanus Immunization Tetanus Immunization: Unknown - Cardiac Hx Cardiac Disorders: Yes Hx Hypertension: Yes Hx Peripheral Vascular Disease: Yes - Pulmonary Hx Respiratory Disorders: No - Neurological Hx Neurological Disorder: Yes - HEENT Hx HEENT Disorder: Yes Other/Comment: wears glasses, speech impediment - Renal Hx Renal Disorder: No - Endocrine/Metabolic Hx Endocrine Disorders: Yes Hx Diabetes Mellitus Type 2: Yes - Hematological/Oncological Hx Blood Disorders: No - Integumentary Hx Dermatological Disorder: Yes Other/Comment: PVD, multiple healed wounds ble skin discolorations - Musculoskeletal/Rheumatological Hx Musculoskeletal Disorders: No - Gastrointestinal Hx Gastrointestinal Disorders: No - Genitourinary/Gynecological Hx Genitourinary Disorders: No - Psychiatric Hx Psychophysiologic Disorder: Yes Hx Schizophrenia: Yes Hx Substance Use: No - Surgical History Other/Comment: all 5 toes amputated on L foot 11/12/2016, picc line x 2 08/07/12 and 06/02/16 - Anesthesia Hx Anesthesia: Yes Hx Anesthesia Reactions: No Hx Malignant Hyperthermia: No - Suicidal Assessment Feels Threatened In Home Enviroment: No <Mayank Cartagena - Last Filed: 07/08/18 19:16> Family/Social History Family/Social History: Unknown Family HX Smoking Status: Never Smoked Hx Alcohol Use: No Hx Substance Use: No <Mayank Cartagena - Last Filed: 07/08/18 19:16> Allergies/Home Meds <Jeromy Gaviria - Last Filed: 07/08/18 17:56> <Mayank Cartagena - Last Filed: 07/08/18 19:16> Allergies/Adverse Reactions: Allergies No Known Allergies Allergy (Verified 07/08/18 14:52) Home Medications: Home Meds Medication Instructions Recorded Confirmed glyBURIDE [Micronase] 5 mg PO BID 02/23/15 01/08/17 Hydrochlorothiazide [Microzide] 25 mg PO DAILY 09/11/16 01/08/17 MetFORMIN [glucoPHAGE] 1,000 mg PO BID 09/11/16 01/08/17 Simvastatin [Zocor] 20 mg PO DAILY 09/11/16 01/08/17 Fenofibrate [Tricor] 1 tab PO DAILY 09/17/16 01/08/17 amLODIPine [Norvasc] 10 mg PO DAILY 01/08/17 01/08/17 Review of Systems - Review of Systems Constitutional: Normal Eyes: Normal ENT: Normal Respiratory: Normal Cardiovascular: Normal Gastrointestinal: Normal Genitourinary Male: Normal Musculoskeletal: Normal Skin: Normal Neurological: Normal Endocrine: Normal Hemo/Lymphatic: Normal Psychiatric: Normal <Mayank Cartagena - Last Filed: 07/08/18 19:16> Physical Exam Vital Signs Temp Pulse Resp BP Pulse Ox 07/08/18 15:51 75 176/81 H 07/08/18 14:49 97.3 F L 88 18 176/81 H 98 <Jeromy Gaviria - Last Filed: 07/08/18 17:56> Vital Signs Temp Pulse Resp BP Pulse Ox 07/08/18 14:49 97.3 F L 88 18 176/81 H 98 Temperature: Afebrile Blood Pressure: Hypertensive Pulse: Regular Respiratory Rate: Normal Appearance: Positive for: Well-Appearing, Non-Toxic, Comfortable Pain Distress: None Mental Status: Positive for: Alert and Oriented X 3 - Systems Exam Head: Present: Atraumatic, Normocephalic Pupils: Present: PERRL Extroacular Muscles: Present: EOMI Conjunctiva: Present: Normal Mouth: Present: Moist Mucous Membranes Neck: Present: Normal Range of Motion Respiratory/Chest: Present: Clear to Auscultation, Good Air Exchange. No: Respiratory Distress, Accessory Muscle Use Cardiovascular: Present: Regular Rate and Rhythm, Normal S1, S2. No: Murmurs Abdomen: No: Tenderness, Distention, Peritoneal Signs Back: Present: Normal Inspection Upper Extremity: Present: Normal Inspection. No: Cyanosis, Edema Lower Extremity: Present: Normal Inspection. No: Edema Neurological: Present: GCS=15, CN II-XII Intact, Speech Normal Skin: Present: Warm, Dry, Normal Color. No: Rashes Psychiatric: Present: Alert, Oriented x 3, Normal Insight, Normal Concentration <CartagenaErrolMayank - Last Filed: 07/08/18 19:16> Medical Decision Making - Lab Interpretations Lab Results: Total Bilirubin 0.6 mg/dL (0.2-1.3) 07/08/18 16:15 AST 28 U/L (17-59) 07/08/18 16:15 ALT 15 U/L (7-56) 07/08/18 16:15 Alkaline Phosphatase 91 U/L (38-126) 07/08/18 16:15 Total Protein 8.5 g/dL (5.8-8.3) H 07/08/18 16:15 Albumin 4.8 g/dL (3.0-4.8) 07/08/18 16:15 Globulin 3.7 gm/dL 07/08/18 16:15 Albumin/Globulin Ratio 1.3 (1.1-1.8) 07/08/18 16:15 Urine Color Light yellow (YELLOW) 07/08/18 16:50 Urine Appearance Clear (CLEAR) 07/08/18 16:50 Urine pH 6.0 (4.7-8.0) 07/08/18 16:50 Ur Specific [place] >= 1.030 (1.005-1.035) 07/08/18 16:50 Urine Protein 100 mg/dL (<30 mg/dL) H 07/08/18 16:50 Urine Glucose (UA) Negative mg/dL (NEGATIVE) 07/08/18 16:50 Urine Ketones Negative mg/dL (NEGATIVE) 07/08/18 16:50 Urine Blood Moderate (NEGATIVE) H 07/08/18 16:50 Urine Nitrate Negative (NEGATIVE) 07/08/18 16:50 Urine Bilirubin Negative (NEGATIVE) 07/08/18 16:50 Urine Urobilinogen 0.2 E.U./dL (<1 E.U./dL) 07/08/18 16:50 Ur Leukocyte Esterase Negative Jorge/uL (NEGATIVE) 07/08/18 16:50 Urine RBC 2 - 5 /hpf (0-2) H 07/08/18 16:50 Urine WBC None /hpf (0-6) 07/08/18 16:50 Ur Epithelial Cells None /hpf (0-5) 07/08/18 16:50 - RAD Interpretation Radiology Orders: 07/08/18 15:21 FOOT LEFT 3 VIEWS ROUTINE [RAD] Stat - Medication Orders Current Medication Orders: Discontinued Medications Metoprolol Tartrate (Lopressor) 50 mg PO STAT STA Stop: 07/08/18 15:30 Last Admin: 07/08/18 15:51 Dose: 50 mg MAR Pulse and Blood Pressure Document 07/08/18 15:51 OCS (Rec: 07/08/18 15:[address] [email or web address]) Pulse Pulse Rate (60-90) 75 Blood Pressure Blood Pressure (100/60-150/90) 176/81 <Jeromy Gaviria - Last Filed: 07/08/18 17:56> ED Course and Treatment: Impression: 58M w/ HTN urgency - asymptomatic; Normally controlled at home on lisinopril HTN improved to systolic 170 at time of evaluation Plan: CBC/CMP EKG Lopressor 50 STAT UA Progress Notes: Pressure improved NO further complaints offered Foot XR w/o osteomyelitis - RAD Interpretation Radiology Orders: 07/08/18 15:21 FOOT LEFT 3 VIEWS ROUTINE [RAD] Stat <Mayank Cartagena - Last Filed: 07/08/18 19:16> Disposition/Present on Arrival - Present on Arrival Any Indicators Present on Arrival: No - Disposition Have Diagnosis and Disposition been Completed?: Yes Disposition Time: 17:57 <Jeromy Gaviria - Last Filed: 07/08/18 17:56> - Present on Arrival Any Indicators Present on Arrival: No History of DVT/PE: No History of Uncontrolled Diabetes: No Urinary Catheter: No History of Decub. Ulcer: No History Surgical Site Infection Following: None - Disposition Have Diagnosis and Disposition been Completed?: Yes <Mayank Cartagena - Last Filed: 07/08/18 19:16> - Disposition Diagnosis: Asymptomatic hypertensive urgency Disposition: HOME/ ROUTINE Patient Problems: Current Active Problems Problem Status Onset Asymptomatic hypertensive urgency Acute Condition: STABLE Discharge Instructions (ExitCare): High Blood Pressure (DC) Print Language: ZAMBIAN Additional Instructions: Please follow up with Dr. Salazar Please follow up with your PCP in 1 week Referrals: Camille Posey MD [Primary Care Provider] - Follow up with primary Jeb Salazar DPM [Staff Provider] - Follow up with primary Forms: [employer] [place] [employer] ([place])
[2018-07-08 15:52] VITALS: PULSE 75
[2018-07-08 16:32] LABS: BASO # 0.01 K/mm3 (0.0-2.0); BASO % 0.1 % (0.0-3.0); EOS # 0.3 (0.0-0.7); EOS % 3.6 % (1.5-5.0); HEMOGLOBIN 11.9 g/dL (14.0-18.0); LYMPH # 1.4 (1.2-3.4); LYMPH % 17.6 % (22.0-35.0); MEAN CELL VOLUME 85.2 fl (80.0-105.0); MEAN CORPUSCULAR HEMOGLOBIN 27.5 pg (25.0-35.0); MEAN CORPUSCULAR HGB CONC 32.3 g/dl (31.0-37.0); MEAN PLATELET VOLUME 11.5 fl (7.0-11.0); MONO # 0.6 (0.1-0.6); MONO % 8.1 % (1.0-6.0); RBC 4.32 10^6/uL (3.5-6.1); RED CELL DISTRIBUTION WIDTH 14.7 % (11.5-14.5); WHITE BLOOD COUNT 7.8 10^3/uL (4.5-11.0)
[2018-07-08 16:52] LABS: ALB/GLOB RATIO 1.3 (1.1-1.8); ALBUMIN 4.8 g/dL (3.0-4.8); CALCIUM 10.2 mg/dL (8.4-10.5)
[2018-07-08 16:57] LABS: URINE APPEARANCE CLEAR (CLEAR); URINE BILIRUBIN NEGATIVE (NEGATIVE); URINE BLOOD MODERATE (NEGATIVE); URINE COLOR LIGHT YELLOW (YELLOW); URINE GLUCOSE (UA) NEGATIVE (NEGATIVE); URINE LEUKOCYTE ESTERASE NEGATIVE Leu/uL (NEGATIVE); URINE PROTEIN 100 mg/dL (<30 mg/dL); URINE UROBILINOGEN 0.2 E.U./dL (<1 E.U./dL)
--- NOTE | 2018-07-08 17:55 | RAD ---
Date of service: 07/08/2018 PROCEDURE: Left Foot Radiographs. HISTORY: foot ulcer COMPARISON: 06/03/2018 FINDINGS: BONES: Postoperative findings related to metatarsal ectomy unchanged. No evidence of osteomyelitis. Plantar and Achilles Tendon insertion calcaneal spurs. No fractures identified. JOINTS: Normal. SOFT TISSUES: The degree of soft tissue swelling at the operative site is increased and the ulceration is more prominent. OTHER FINDINGS: None. IMPRESSION: Increasing soft tissue swelling distal left foot at the surgical site. No evidence of acute osteomyelitis.
--- NOTE | 2018-07-09 16:15 | CARD ---
APPROVED REPORT Date of service: 07/08/2018 EKG Measurement Heart [id number] <Conclusion> Sinus rhythm with 1st degree AV block Right bundle branch block Abnormal ECG
== END 2018-07-08 18:56 | disposition home or self-care (01) ==
LOC: ED 13:44
DX: I16.0 Hypertensive urgency (principal); I12.9 Hypertensive chronic kidney disease with stage 1 through stage 4 chronic kidney disease, or unspecified chronic kidney disease; N18.3 Chronic kidney disease, stage 3 (moderate); E11.22 Type 2 diabetes mellitus with diabetic chronic kidney disease; Z89.412 Acquired absence of left great toe; Z89.422 Acquired absence of other left toe(s)

== ENCOUNTER 2018-09-30 14:52 | Outpatient (CLI) | payer OTHER | END 2018-09-30 14:53 | disposition home or self-care (01) | LOC: RAD 14:52 ==